=== PATIENT | male | born 1980 | race Two or more races ===

== ENCOUNTER 2025-03-07 05:30 | Emergency (ER) | payer SELFPAY ==
[2025-03-07 05:35] VITALS: BMI 22.4
[2025-03-07 05:42] VITALS: BP 148/96; PULSE 91; RESP 18; TEMP 36.8; O2SAT 98
--- NOTE | 2025-03-07 05:54 | PC.NURSE ---
SPOKE TO FROM POISON CONTROL AND INFORMED HER OF PT TAKING 15-DIAZEPAM 10MG PILLS, 15-SOMA 350MG PILLS, AND 10-NORCO 10/325 PILLS. POISON CONTROL RECOMMENDATIONS ARE SUPPORTIVE CARE, WATCH FOR RESPIRATORY DEPRESSION, CHECK TYLENOL LEVELS AND CALL BACK IF >150. CHECK LFTS, AVOID USING FLUMAZENIL AND IF NARCAN IS USED, OBS FOR 5-6 HRS AFTER USING.
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
[2025-03-07 06:48] LABS: Basophils % (Auto) 0 % (0-2.5); Eosinophils # (Auto) 0.2 Thou/mm3 (0.0-0.5); Eosinophils % (Auto) 2 % (0-10); Hematocrit 37.1 % (41.0-53.0); Hemoglobin 12.5 g/dL (13.5-16.0); Immature Granulocytes % (Auto) 1 % (0-0); Immature Granulocytes Auto 0.05 Thou/mm3 (0.00-0.00); Lymphocytes # (Auto) 1.4 Thou/mm3 (1.0-4.8); Lymphocytes % (Auto) 16 % (10-50); Mean Corpuscular HGB Conc 33.7 g/dl (31.0-37.0); Mean Corpuscular Hemoglobin 30.9 pg (25.0-35.0); Mean Corpuscular Volume 92 fL (80-100); Monocytes # (Auto) 0.5 Thou/mm3 (0.0-0.8); Monocytes % (Auto) 5 % (0-12); Neutrophils # (Auto) 6.5 Thou/mm3 (1.8-7.7); Neutrophils % (Auto) 75 % (37-80); Nucleated Red Blood Cell % 0 /100 WBC (0); Platelet Count 230 Thou/mm3 (140-440); RDW Standard Deviation 46.7 fL (35.1-43.9); Red Blood Count 4.05 Miln/mm3 (4.50-5.90); White Blood Count 8.7 Thou/mm3 (3.8-10.6)
[2025-03-07] MEDS: SODIUM CHLORIDE 0.9% 1000 ML 1,000 ML 999 ML IV (06:53)
[2025-03-07 07:00] VITALS: PULSE 66
[2025-03-07 07:11] LABS: Acetaminophen 11.9 mcg/mL (10.0-20.0); Alanine Aminotransferase 16 U/L (10-49); Albumin, Serum 4.3 gm/dL (3.5-5.0); Albumin/Globulin Ratio 2.2 (1.2-2.2); Alkaline Phosphatase 85 U/L (46-116); Anion Gap 8 (7-16); Aspartate Amino Transferase 16 U/L (0-34); BUN/Creatinine Ratio 9 Ratio (12-20); Bilirubin,Total 0.4 mg/dL (0.3-1.2); Blood Urea Nitrogen 7 mg/dL (9-23); Carbon Dioxide 27.9 mMol/L (20.0-31.0); Chloride 107 mMol/L (98-107); Creatinine (Component) 0.8 mg/dL (0.6-1.3); Estimated Creatinine Clearance 129.9 mL/min (>60); Glucose 132 mg/dL (74-106); Osmolality,Calculated 284 (275-295); Potassium 4.3 mMol/L (3.4-5.1); Sodium 143 mMol/L (136-145); Total Protein 6.3 gm/dL (5.7-8.2); eGFR > 60 See Note
[2025-03-07 07:12] LABS: Alcohol, Blood Medical < 3.0 mg/dL (0-10.0); Salicylate < 3.0 mg/dL
[2025-03-07 07:30] VITALS: BP 126/93; PULSE 67; RESP 16; TEMP 36.6; O2SAT 99
[2025-03-07 07:49] LABS: Collection Type, Urine Clean Catch; Squamous Epithelial Cell,Urine 0 /hpf (0-5)
[2025-03-07 08:05] LABS: Amphetamine/Methamp Scrn,U Negative (Negative); Barbiturate Screen,Urine Negative (Negative); Benzodiazepines Screen,Urine Positive (Negative); Benzoylecgonine Screen, Ur Negative (Negative); Bilirubin,Urine Negative (Negative); Blood,Urine Negative (Negative); Clarity,Urine Clear (Clear/Hazy); Color,Urine Lt-Yellow (Lt Yel-Yel); Fentanyl Screen,Urine Negative (Negative); Glucose, Urine Negative (Negative); Ketones,Urine Negative (Negative); Leukocyte Esterase,Urine Negative (Negative); Nitrite,Urine Negative (Negative); Opiate Screen,Urine Negative (Negative); PH,Urine 6.5 (5.0-7.0); Protein,Urine Negative (Neg - Trace); RBC,Urine 1 /hpf (0-3); Specific Gravity,Urine 1.031 (1.001-1.035); THC Screen,Urine Negative (Negative); Urobilinogen,Urine Negative mg/dL (0.0-1.0); WBC,Urine < 1 /hpf (0-5)
--- NOTE | 2025-03-07 08:16 | PC.NURSE ---
Patient requesting to sign out AMA, Dr. Jalloh made aware and went to bedside and is speaking with patient.
--- NOTE | 2025-03-07 08:19 | PC.NURSE ---
Patient asking to leave AMA. Patient wanted to have his phone and was not able to. Patient denies suicidal ideation. 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 Dr. Jalloh in to evaluate patient. Per patient denies suicidal ideation so patient will just have to be here the required amount of time recommended by Poison control and patient will be able to go home. Patient in agreement with plan. Vitals are stable. Per Dr. Jalloh patient okay to have phone. Patient given breakfast try.
--- NOTE | 2025-03-07 08:33 | PC.NURSE ---
1:1 SITTER STILL AT BEDSIDE.
--- NOTE | 2025-03-07 08:51 | PC.NURSE ---
Per Dr. Jalloh okay to discharge patient. Per he made a contract with patient so he is okay for discharge and knows to return to ED if needed.
[2025-03-07 08:54] VITALS: BP 143/94; PULSE 87; RESP 17; TEMP 36.5; O2SAT 99
== END 2025-03-07 09:01 | disposition home or self-care (01) ==
PROVIDERS: Emergency Provider Family Medicine
DX: T42.4X2A Poisoning by benzodiazepines, intentional self-harm, initial encounter (principal); F32.A Depression, unspecified; R45.851 Suicidal ideations; F13.10 Sedative, hypnotic or anxiolytic abuse, uncomplicated
CPT/HCPCS: 36415; 80053; 80307; 80320; 80329; 81001; 85025; 93005; 96127; 96360; 99284; J7030; G0480

== ENCOUNTER 2025-03-20 15:27 | Emergency (ER) | payer SELFPAY ==
[2025-03-20 15:27] VITALS: BMI 24.4
--- NOTE | 2025-03-20 15:32 | PC.NURSE ---
AFTER CHECKING IN PT ASKED HOW LONG IS THE WAIT? WHEN INFORMED THAT STAFF WILL GET HIM BACK TO SEE A PROVIDER SOON POSSIBLE, PT ASKED WILL IT BE MORE THAN AN HOUR? WHEN INFORMED AGAIN THAT HE WILL BE SEEN SOON POSSIBLE, PT TOOK ARM BAND OFF AND SAID HE WAS GOING SOMEWHERE ELSE. UNABLE TO FIND [facility] PAPERWORK AND HAD PT SIGN AMA FORM INSTEAD.
== END 2025-03-20 15:32 | disposition left against medical advice (07) ==
PROVIDERS: Emergency Provider Family Medicine
DX: Z53.21 Procedure and treatment not carried out due to patient leaving prior to being seen by health care provider (principal)

== ENCOUNTER 2025-07-13 16:12 | Inpatient (IN) | payer MEDICAID, SELFPAY ==
[2025-07-13] VITALS (35 sets, daily range): BP systolic 119–155; BP diastolic 99–113; PULSE 86–125; RESP 18–24; TEMP 36.1–37.1; O2SAT 91–99; BMI 29.4
[2025-07-13] MEDS: FLUMAZENIL INJ 0.1 MG/ML VIAL 10 ML 0.2 MG IVP (16:19)
[2025-07-13] MEDS: SUCCINYLCHOLINE INJ 20 MG/ML VIAL 10 ML 100 MG IV (16:21)
--- NOTE | 2025-07-13 16:22 | XR_ITS ---
EXAMINATION: AP chest single view TECHNIQUE: AP portable supine chest single view Date and time: July 13, 2025, 1634 hours INDICATIONS: Hypoxic respiratory failure, post intubation FINDINGS: Endotracheal tube tip 3.2 cm above arleen No significant cardiac enlargement No aspiration pneumonia Orogastric tube in the stomach, the tip is below the level of the film Old right seventh rib fracture IMPRESSION: Negative for aspiration pneumonia Endotracheal tube tip 3.2 cm above arleen
[2025-07-13] MEDS: ETOMIDATE INJ 2 MG/ML VIAL 10 ML 20 MG IVP (16:29)
--- NOTE | 2025-07-13 16:32 | PD.EDAMS ---
Altered Mental Status RME/HPI General Chief Complaint: Overdose Stated Complaint: OD Time Seen by Provider: 07/13/25 16:19 Arrival date/time: 07/13/25 16:12 RME / HPI RME / HPI narrative: See [facility] for Dr. Hairston's HPI documentation. Related Data Home Medications ?Medication ?Instructions ?Recorded ?Confirmed alprazolam 1 mg tablet 1 mg PO TID 01/30/20 01/30/20 cyclobenzaprine 10 mg tablet 10 mg PO QDAY PRN Muscle Spasm 01/30/20 01/30/20 frovatriptan 2.5 mg tablet 2.5 mg PO Q2H PRN Migraine Headache 01/30/20 01/30/20 gabapentin 300 mg capsule 300 mg PO TID 01/30/20 01/30/20 hydrocodone 10 mg-acetaminophen 1 tab PO Q8H 01/30/20 01/30/20 325 mg tablet ([place]) Previous Rx's ?Medication ?Instructions ?Recorded azithromycin 250 mg tablet See Rx Instructions PO .COMPLEX #6 01/30/20 tabs alprazolam 0.25 mg tablet (Xanax) 0.25 mg PO TID PRN anxiety #14 tabs 11/06/20 azithromycin 250 mg tablet See Rx Instructions PO .COMPLEX #6 11/06/20 (Zithromax Z-Mode) tabs metformin 500 mg tablet,extended 500 mg PO QDAY #10 tabs 11/06/20 release 24 hr promethazine-DM 6.25 mg-15 mg/5 mL 5 ml PO Q6H PRN cough #118 mL 11/06/20 oral syrup Allergies Allergy/AdvReac Type Severity Reaction Status Date / Time Sulfa (Sulfonamide Allergy Severe Rash Verified 03/20/25 15:30 Antibiotics) Review of Systems Review of Systems ROS Unobtainable: unobtainable due to mental status Past Medical History Past Medical History NEUROLOGIC: Positive Head Trauma and Traumatic Brain Injury RESPIRATORY: Positive Bronchitis ENT: Positive Head Trauma PSYCHO/SOCIAL: Positive Depression, Anxiety and Post Traumatic Stress Disorder OTHER HISTORY: Positive Hospitalization, Autism and Falls Social History SMOKING STATUS: Never smoker ED Exam Narrative Physical exam: See [facility] for Dr. Hairston's physical exam documentation. Course Quality Measures none Orders Category Date Time Status 24 HR Medical Restraints Q2HR Care 07/13/25 16:54 Active EKG (ED ONLY) *Do not use* NOW Care 07/13/25 16:22 Completed Emergency Titration Protocol Stat Care 07/13/25 16:46 Ordered Thomas to [place] Routine Care 07/13/25 16:19 Ordered Insert NG / OG tube NOW Care 07/13/25 16:32 Active Intubation NOW Care 07/13/25 16:51 Completed Rigid cervical collar PRN Care 07/13/25 16:34 Active Saline [Insert IV] NOW Care 07/13/25 16:[address] cervical spine wo con Stat Exams 07/13/25 16:[address] chest abdomen pelvis wo Stat Exams 07/13/25 16:[address] head/brain wo con Stat Exams 07/13/25 16:38 Ordered EKG (ED Only) Stat Exams 07/13/25 16:22 Ordered XR chest 1V post procedure Stat Exams 07/13/25 16:22 Completed ABG [Arterial Blood Gas] Stat Lab 07/13/25 17:14 Completed Acetaminophen Stat Lab 07/13/25 16:40 Received Alcohol, Blood Medical Stat Lab 07/13/25 16:40 Received Ammonia Stat Lab 07/13/25 16:40 Completed BNP [B-Type Natriuretic Peptide] Stat Lab 07/13/25 16:40 Completed Bilirubin,Direct Stat Lab 07/13/25 16:40 Received Blood Culture (Lab) Stat Lab 07/13/25 16:48 Received CBC Stat Lab 07/13/25 16:40 Results CK [Creatine Kinase] Stat Lab 07/13/25 16:40 Received CMP [Comprehensive Metabolic Panel] Stat Lab 07/13/25 16:40 Received CRP [C-Reactive Protein] Stat Lab 07/13/25 16:40 Received Drug Screen,Urine Stat Lab 07/13/25 16:40 Received ESR [Sed Rate (ESR)] Stat Lab 07/13/25 16:40 Results Lactate (Lactic Acid) Stat Lab 07/13/25 16:40 Results Lipase Stat Lab 07/13/25 16:40 Received Magnesium Stat Lab 07/13/25 16:40 Received PT [Prothrombin Time with INR] Stat Lab 07/13/25 16:40 Completed PTT [Partial Thromboplastin Time] Stat Lab 07/13/25 16:40 Completed Procalcitonin Stat Lab 07/13/25 16:40 Received Sputum Culture and Gram Stain Stat Lab 07/13/25 17:14 Received TSH [Thyroid Stimulating Hormone] Stat Lab 07/13/25 16:40 Received Troponin I Stat Lab 07/13/25 16:40 Received UA, C/S IF [Urinalysis, C/S if Indicated] Stat Lab 07/13/25 16:40 Received Etomidate Inj [Amidate Inj] Med 07/13/25 16:25 Discontinued 20 mg .ROUTE .STK-MED ONE Etomidate Inj [Amidate Inj] Med 07/13/25 16:27 Discontinued 20 mg IVP X1 ONE Midazolam/Ns 100 mg Ivpb [Versed Pf Inj in Ns Premix] Med 07/13/25 17:17 Active 100 mg in 100 ml IV 1 mg/hr NALOXONE INJ (Syringe) [Narcan Inj (Syringe)] Med 07/13/25 16:15 Discontinued 2 mg .ROUTE .STK-MED ONE NALOXONE INJ (Vial) [Narcan Inj (Vial)] Med 07/13/25 16:21 Discontinued 4 mg IV X1 ONE Ondansetron Inj [Zofran Inj] Med 07/13/25 16:21 Discontinued 4 mg IVP X1 ONE Propofol 1,000 mg Ivpb [Diprivan Ivpb] Med 07/13/25 16:39 Discontinued 1,000 mg in 100 ml IV .STK-MED Propofol 1,000 mg Ivpb [Diprivan Ivpb] Med 07/13/25 16:32 Active 1,000 mg in 100 ml IV 5 mcg/kg/min Ringers Lactated 1000 ml [Lactated Ringers] 1,000 ml Med 07/13/25 16:20 Discontinued IV 1,000 mls/hr Ringers Lactated 1000 ml [Lactated Ringers] 1,000 ml Med 07/13/25 16:21 Discontinued IV 1,000 mls/hr Succinylcholine Inj [Anectine Inj] Med 07/13/25 16:27 Discontinued 100 mg IV X1 ONE Succinylcholine Inj [Anectine Inj] Med 07/13/25 16:25 Discontinued 200 mg .ROUTE .STK-MED ONE flumazeniL [Romazicon Inj] Med 07/13/25 16:21 Discontinued 0.2 mg IVP X1 ONE flumazeniL [Romazicon Inj] Med 07/13/25 16:14 Discontinued 1 mg .ROUTE .STK-MED ONE Volume Ventilator Routine RT 07/13/25 16:51 Active Vital Signs Vital signs: Vital Signs Pulse Rate 112 H 07/13/25 16:21 Respiratory Rate 19 07/13/25 16:21 Blood Pressure 119/101 H 07/13/25 16:21 Pulse Oximetry (%) 98 07/13/25 16:21 Oxygen Delivery Method Room Air 07/13/25 16:21 Pulse ox is 98% on room air which is adequate. PROCEDURES: Intubation sedative: Etomidate Mg Given: 20 paralytic: Succinylcholine Mg Given: 100 Laryngoscope: Speedy ET Tube Size: 7.5 ET Tube Uncuffed: No Tube Secured Depth (cm): 23 Tube Secured Location: lips Tube Placement Confirmation: visualized tube passing through cords, equal breath sounds bilaterally, no breath sounds over epigastrium and confirmation by capnometry Patient Tolerated Procedure: well and no complications Intubation Complications: none Altered Mental Status MDM Narrative MDM Narrative:: This section includes all my notes and documentations, including HPI, PE, and ED course. Omar Hairston MD HPI: 45 year old male here brought in by ambulance from home with altered mental status. Per medics report, mother on scene reported finding the patient altered today and last known well unknown. On scene patient was a GCS of 7 and found lying in bed, with urine incontinence. Bilateral pupils were dilated and no Narcan given on scene. En route to ED patient was given Narcan 2 mg IV with no change. I spoke with patient's mother Junie over the phone. She reports the patient was at his usual state of health yesterday. She heard a thud come from patient's bedroom but did not check on him. Patient was scheduled to get on a train to visit his girlfriend in [place] this morning. However, mom couldn't waking up this morning. And in the afternoon just [employer]ANNEL [employer]NAGER, she called 911. ROS: Can't obtain from the patient due to current clinical condition. Physical Exam: General:? GCS 8 (opens eyes to pain, groans, withdraws from pain). Eyes:? Conjunctivae and lids clear.? EOMI.? PERRL. ENT:? No signs of head trauma. Neck:? Supple.? No tenderness. Heart:? RRR. Lungs:? No respiratory distress.? Good air movement.? No rhonchi, wheezing, rales.? Chest:? No tenderness. Abdomen:? Soft and nontender.? Normal bowel sounds.? No distension.? No rebound or guarding.? Back:? No tenderness.? Skin:? Warm and dry.? Neuro:? Cranial Nerves II-XII grossly intact.? No peripheral motor deficits. Musculoskeletal:? All major joints and bones are not tender with no limited ROM. I reviewed EMS notes. Flumazenil 0.2 mg IV given, no improvement noted. Patient successfully intubated, see procedure note, used etomidate 20 mg IV and succinylcholine 100 mg IV. My interpretation of the EKG is: Sinus tachycardia (112 bpm) with nonspecific ST-T changes. Omar Hairston MD I ordered IVF, Zofran 4 mg IV, Propofol drip, Versed drip, and diagnostic tests. At 6 PM on 07/13/2025, the care of the patient was transferred to Dr. Lainez. Omar Hairston MD Patient data External records reviewed:: [facility] previous records and EMS form Clinical information provided by:: EMS Social determinants that could affect healthcare access:: mental health Patient has the following chronic illnesses:: Depression, anxiety, PTSD How is presenting disease/condition affected by chronic disease/condition?: uneffected by Evaluation data The following diagnostics were reviewed and interpreted by me:: EKG tracing(s) (My interpretation of the EKG is: Sinus tachycardia (112 bpm) with nonspecific ST-T changes. Omar Hairston MD) Lab and/or radiology exams considered but not ordered:: None Interpretation Summary: Complete diagnostic tests are pending. Medications / Prescriptions Medications or Prescriptions considered but not ordered:: None Medication administrations:: Medication Administration History Propofol (Diprivan Ivpb) 1,000 mg in 100 mls @ 2.634 mls/hr IV .Q24H PRN; Protocol PRN Reason: Per Protocol Stop: 08/12/25 16:31 Last Titration: 07/13/25 17:19 Dose: 50 mcg/kg/min, 26.34 mls/hr Documented By: Titration: 07/13/25 17:12 Dose: 45 mcg/kg/min, 23.706 mls/hr Documented By: Titration: 07/13/25 17:05 Dose: 40 mcg/kg/min, 21.072 mls/hr Documented By: Titration: 07/13/25 17:00 Dose: 35 mcg/kg/min, 18.438 mls/hr Documented By: Titration: 07/13/25 16:53 Dose: 30 mcg/kg/min, 15.804 mls/hr Documented By: Admin: 07/13/25 16:46 Dose: 25 mcg/kg/min, 13.17 mls/hr Documented By: VL Co-signed By: JAGDEEP Midazolam HCl (Versed Pf Inj In Ns Premix) 100 mg in 100 mls @ 1 mls/hr IV .Q24H PRN; Protocol PRN Reason: Per Protocol Stop: 07/18/25 17:16 Discontinued Medications Etomidate (Etomidate Inj 2 Mg/Ml Vial 10 Ml) Confirm Administered Dose 20 mg .ROUTE .STK-MED ONE Stop: 07/13/25 16:26 Last Admin: 07/13/25 16:32 Dose: Not Given Documented By: VL Non-Admin Reason: Duplicate Medication on eMAR Etomidate (Etomidate Inj 2 Mg/Ml Vial 10 Ml) 20 mg IVP X1 ONE Stop: 07/13/25 16:28 Last Admin: 07/13/25 16:29 Dose: 20 mg Documented By: VL Flumazenil (Flumazenil Inj 0.1 Mg/Ml Vial 10 Ml) Confirm Administered Dose 1 mg .ROUTE .STK-MED ONE Stop: 07/13/25 16:15 Last Admin: 07/13/25 16:32 Dose: Not Given Documented By: VL Non-Admin Reason: Duplicate Medication on eMAR Flumazenil (Flumazenil Inj 0.1 Mg/Ml Vial 10 Ml) 0.2 mg IVP X1 ONE Stop: 07/13/25 16:22 Last Admin: 07/13/25 16:19 Dose: 0.2 mg Documented By: VL Lactated Ringer's (Lactated Ringers) 1,000 mls @ 1,000 mls/hr IV .Q1H ONE Stop: 07/13/25 17:19 Last Admin: 07/13/25 17:21 Dose: 1,000 mls/hr Documented By: VL Lactated Ringer's (Lactated Ringers) 1,000 mls @ 1,000 mls/hr IV .Q1H ONE Stop: 07/13/25 17:20 Propofol (Diprivan Ivpb) Confirm Administered Dose 1,000 mg in 100 mls @ ud IV .STK-MED ONE Stop: 07/13/25 16:40 Last Admin: 07/13/25 16:46 Dose: Not Given Documented By: VL Non-Admin Reason: Duplicate Medication on eMAR Naloxone HCl (Naloxone Inj 1 Mg/Ml Syringe 2 Ml) Confirm Administered Dose 2 mg .ROUTE .STK-MED ONE Stop: 07/13/25 16:16 Last Admin: 07/13/25 16:32 Dose: Not Given Documented By: AMY Non-Admin Reason: Duplicate Medication on eMAR Naloxone HCl (Naloxone Inj 0.4 Mg/Ml Vial) 4 mg IV X1 ONE Stop: 07/13/25 16:22 Last Admin: 07/13/25 16:38 Dose: Not Given Documented By: AMY Non-Admin Reason: Cancelled by Provider Ondansetron HCl (Ondansetron Inj 2 Mg/Ml Inj 2 Ml) 4 mg IVP X1 ONE; Protocol Stop: 07/13/25 16:22 Succinylcholine Chloride (Succinylcholine Inj 20 Mg/Ml Vial 10 Ml) Confirm Administered Dose 200 mg .ROUTE .STK-MED ONE Stop: 07/13/25 16:26 Last Admin: 07/13/25 16:32 Dose: Not Given Documented By: AMY Non-Admin Reason: Duplicate Medication on eMAR Succinylcholine Chloride (Succinylcholine Inj 20 Mg/Ml Vial 10 Ml) 100 mg IV X1 ONE Stop: 07/13/25 16:28 Last Admin: 07/13/25 16:21 Dose: 100 mg Documented By: AMY I ordered IVF, Zofran 4 mg IV, Propofol drip, Versed drip, and diagnostic tests. Consultations Consultation(s) initiated? (list below): No Diagnosis Differential diagnosis altered mental status: alcoholic intoxication, altered mental status, delirium, dementia, hypoglycemia, hyponatremia, subarachnoid hemorrhage and sepsis Most likely diagnosis given after review of the tests above:: Complete diagnostic tests are pending. Admission Indicated Admission indicated?: not indicated Explain why admission is indicated or not indicated:: Complete diagnostic tests are pending. Admission Request Was there a request for admission?: No Disposition Plan Disposition Plan: other (specify) (At 6 PM on 07/13/2025, the care of the patient was transferred to Dr. Lainez.) Critical Care Time Critical Care Time Critical Care Time: Yes Total Critical Care Time (min.): 42 Attestation: Due to a high probability of clinically significant, life threatening deterioration, the patient required my highest level of preparedness to intervene emergently and I personally spent this critical care time directly and personally managing the patient. This critical care time included obtaining a history; examining the patient; ordering and review of studies; arranging urgent treatment with development of a management plan; evaluation of patient's response to treatment; frequent reassessment; and discussions with family and other providers. It was exclusive of separately billable procedures and treating other patients and teaching time. Omar Hairston MD Discharge Plan Prescriptions/Referrals Prescriptions/Med Rec: No Action cyclobenzaprine 10 mg Tablet 10 mg PO QDAY PRN (Reason: Muscle Spasm) alprazolam 1 mg Tablet 1 mg PO TID hydrocodone-acetaminophen [[place]] 10-325 mg Tablet 1 tab PO Q8H frovatriptan 2.5 mg Tablet 2.5 mg PO Q2H PRN (Reason: Migraine Headache) gabapentin 300 mg Capsule 300 mg PO TID azithromycin 250 mg tablet See Rx Instructions .ROUTE .COMPLEX Qty: 6 0RF Rx Instructions: take 500 mg today (day 1), then 250 mg for 4 days (days 2-5) alprazolam [Xanax] 0.25 mg tablet 0.25 mg PO TID PRN (Reason: anxiety) Qty: 14 0RF promethazine-DM 6.25-15 mg/5 mL syrup 5 ml PO Q6H PRN (Reason: cough) Qty: 118 0RF azithromycin [Zithromax Z-Mode] 250 mg tablet See Rx Instructions .ROUTE .COMPLEX Qty: 6 0RF Rx Instructions: take 500 mg today (day 1), then 250 mg for 4 days (days 2-5) metformin 500 mg tablet extended release 24 hr 500 mg PO QDAY Qty: 10 0RF Referrals: No Primary/Family,Physician [Primary Care Provider] - In 1 week Problem List Clinical Impression: AMS (altered mental status) Patient/Caregiver Discharge Instructions Print Language: Bhutanese
--- NOTE | 2025-07-13 16:38 | XR_ITS ---
Examination: CT cervical spine without contrast 2-D sagittal reconstructions 2-D coronal reconstructions 3-D reconstructions. Exam date and time: July 13, 2025, 1803 hours INDICATIONS: Patient found down unconscious today with neck pain CTDI:vol (mGy) 17.6 DLP: (mGycm) 431 Technique: Multiple 2 mm axial sections of the cervical spine have been obtained. The coronal and sagittal reconstructions have been obtained. 3-D reconstructions have been obtained. Low dose protocols were performed. One or more of the following dose reduction techniques were used; automated exposure control, adjustment of the mA and/or KV according to patient size, use of iterative reconstruction technique. Findings: Axial sections demonstrate intact base of the skull. C1 exhibit satisfactory relationship to the odontoid. No acute cervical vertebral body fracture seen. Alignment posterior spinous processes satisfactory. Air density in the lower soft tissue of the neck prevertebral at the site of the endotracheal tube and orogastric tube, for instance sagittal image 35 Impression: No acute cervical fracture.
--- NOTE | 2025-07-13 16:38 | XR_ITS ---
Examination: CT chest, without intravenous contrast. CT abdomen, without intravenous contrast. CT pelvis, without intravenous contrast. 2-D sagittal and coronal reconstructions. 3-D reconstructions. Date and time of exam: July 13, 2025, 181 hours INDICATIONS: Patient found down unconscious today, chest abdominal pain neck pain hypoxic respiratory failure post intubation CTDI vol (mgy) 17.3 DLP (MGycm) 1364 Technique: Multiple CT images, 3.0 mm slice thickness, obtained chest, abdomen, pelvis, with the high-resolution 64 slice scanner.. Sagittal and coronal 2-D reconstructions are obtained. 3-D reconstructions Low dose protocols were performed. One or more of the following dose reduction techniques were used; automated exposure control, adjustment of the mA and/or KV according to patient size, use of iterative reconstruction technique. Findings: Tracheal tube tip 2.4 cm above arleen No thoracic aortic aneurysmal dilatation Pulmonary artery segments are not enlarged. No paratracheal tracheobronchial or bronchopulmonary adenopathy. Basilar lung opacity, consider aspiration pneumonia Moderate vascular congestion Manubrium and body of the sternum intact Prominent osteopenia Chronic osteoporotic compressions T9, T8, T7, T6, T5 Ribs appear intact Orogastric tube in the stomach No focal liver or splenic lesion No gallstones No pancreatic or adrenal mass No renal or ureteral calculi, no hydronephrosis Aorta normal size Normal appendix No free blood in the abdomen or pelvis Negative for pneumoperitoneum Urinary bladder contracted around a Thomas catheter, no significant prostatomegaly Moderate disc narrowing L5-S1 Bones of the pelvis and hips intact IMPRESSION: Bibasilar lung opacity consider aspiration pneumonia Tracheal tube tip 2.4 cm above arleen Moderate vascular congestion Chronic osteoporotic compressions T9, T8, T7, T6, T5 Orogastric tube in the stomach No abdominal parenchymal laceration, no free blood in the abdomen or pelvis Moderate disc narrowing L5-S1
--- NOTE | 2025-07-13 16:38 | XR_ITS ---
Examination: CT brain head without contrast. 2-D sagittal coronal reconstructions Date and time of exam: July 13, 2025, 1803 hours, comparison February 23, 2023 INDICATIONS: Patient found down unconscious today altered mental status CTDI: vol (mGy): 53.1 DLP: (mGycm): 1120 Technique: Multiple CT axial sections of the brain have been obtained, 5 mm slice thickness. Contrast has not been administered. 2-D sagittal, coronal reconstructions have been obtained Low dose protocols were performed. One or more of the following dose reduction techniques were used; automated exposure control, adjustment of the mA and/or KV according to patient size, use of iterative reconstruction technique. Findings: No significant ventricular enlargement. Intra-axial or extra-axial hemorrhage density is not seen. No mass effect or midline shift Basal cisterns are not remarkable. Fourth ventricle is midline. Cranial vault intact. Impression: Negative for acute hemorrhage, mass effect or midline shift
[2025-07-13] MEDS: PROPOFOL 1,000 MG IVPB 1,000 MG/100 ML VIAL 13.17 MG IV (16:46)
[2025-07-13 17:00] LABS: Lactate (Lactic Acid) 2.8 mMol/L (0.4-2.0)
[2025-07-13 17:04] LABS: Basophils # (Auto) 0.0 Thou/mm3 (0.0-0.2); Basophils % (Auto) 0 % (0-2.5); Eosinophils # (Auto) 0.2 Thou/mm3 (0.0-0.5); Eosinophils % (Auto) 1 % (0-10); Hematocrit 47.8 % (41.0-53.0); Hemoglobin 16.3 g/dL (13.5-16.0); Immature Granulocytes Auto 0.05 Thou/mm3 (0.00-0.00); Lymphocytes # (Auto) 1.6 Thou/mm3 (1.0-4.8); Lymphocytes % (Auto) 13 % (10-50); Mean Corpuscular HGB Conc 34.1 g/dl (31.0-37.0); Mean Corpuscular Hemoglobin 30.6 pg (25.0-35.0); Mean Corpuscular Volume 90 fL (80-100); Monocytes # (Auto) 0.5 Thou/mm3 (0.0-0.8); Monocytes % (Auto) 4 % (0-12); Neutrophils # (Auto) 10.1 Thou/mm3 (1.8-7.7); Neutrophils % (Auto) 81 % (37-80); Nucleated Red Blood Cell # 0.00 Thou/mm3 (0.00-0.00); Nucleated Red Blood Cell % 0 /100 WBC (0); Platelet Count 227 Thou/mm3 (140-440); RDW Standard Deviation 43.0 fL (35.1-43.9); Red Blood Count 5.32 Miln/mm3 (4.50-5.90); White Blood Count 12.4 Thou/mm3 (3.8-10.6)
[2025-07-13 17:13] LABS: Collection Type, Urine Clean Catch
[2025-07-13 17:18] LABS: INR 1.0 (0.9-1.3); Partial Thromboplastin Time 27.2 Seconds (22.0-36.0); Prothrombin Time 10.5 Seconds (9.0-12.2)
[2025-07-13 17:20] LABS: Base Excess -6 (-3-3); HCO3 20 mEq/L (20-26); Inspired Oxygen, FIO2 100 %; O2 Saturation 99 % (91-98); PCO2 38 mmHg (32.0-48.0); PO2 534 mmHg (83-108); pH, Arterial 7.33 (7.35-7.45)
[2025-07-13] MEDS: RINGERS LACTATED 1000 ML 1,000 ML IV ×2 (17:21→18:27)
[2025-07-13 17:22] LABS: B-Type Natriuretic Peptide < 20 pg/mL (0-100)
[2025-07-13 17:22] LABS: Puncture Site Right Radial
[2025-07-13 17:23] LABS: Allen Test Performed/OK
[2025-07-13 17:24] LABS: Ammonia < 10 uMol/L (11-32)
[2025-07-13 17:29] LABS: Sed Rate (ESR) 17 mm/hr (0-15)
[2025-07-13 17:34] LABS: Acetaminophen < 2.0 mcg/mL (10.0-20.0); Alanine Aminotransferase 78 U/L (10-49); Albumin, Serum 5.0 gm/dL (3.5-5.0); Albumin/Globulin Ratio 2.1 (1.2-2.2); Alcohol, Blood Medical < 10.0 mg/dL (0-10.0); Alkaline Phosphatase 107 U/L (46-116); Amphetamine/Methamp Scrn,U Negative (Negative); Anion Gap 14 (7-16); Aspartate Amino Transferase 42 U/L (0-34); BUN/Creatinine Ratio 11 Ratio (12-20); Barbiturate Screen,Urine Negative (Negative); Benzodiazepines Screen,Urine Negative (Negative); Benzoylecgonine Screen, Ur Negative (Negative); Bilirubin,Direct 0.4 mg/dL (0.0-0.3); Bilirubin,Total 1.0 mg/dL (0.3-1.2); Blood Urea Nitrogen 11 mg/dL (9-23); C-Reactive Protein < 0.5 mg/dL (0.0-0.9); Calcium 9.9 mg/dL (8.3-10.6); Calcium (Corrected) 9.9 mg/dL (8.5-10.1); Carbon Dioxide 22.9 mMol/L (20.0-31.0); Chloride 103 mMol/L (98-107); Creatine Kinase 60 U/L (34-171); Creatinine (Component) 1.0 mg/dL (0.6-1.3); Estimated Creatinine Clearance 102.6 mL/min (>60); Fentanyl Screen,Urine Negative (Negative); Globulin 2.4 gm/dL (2.3-3.5); Glucose 297 mg/dL (74-106); Lipase 28 U/L (12-53); Magnesium 2.0 mg/dL (1.6-2.6); Opiate Screen,Urine Negative (Negative); Osmolality,Calculated 289 (275-295); Potassium 4.2 mMol/L (3.4-5.1); Procalcitonin 0.19 ng/ml (0.0-0.49); Sodium 140 mMol/L (136-145); THC Screen,Urine Positive (Negative); Thyroid Stimulating Hormone 0.40 uIU/mL (0.55-4.78); Total Protein 7.4 gm/dL (5.7-8.2); Troponin I < 0.002 ng/mL (0.0-0.045); eGFR > 60 See Note
[2025-07-13] MEDS: MIDAZOLAM/NS 100 MG IVPB 100 MG/100 ML BAG IV (17:35)
[2025-07-13 17:57] LABS: Bilirubin,Urine Negative (Negative); Blood,Urine Trace (Negative); Clarity,Urine Clear (Clear/Hazy); Color,Urine Lt-Yellow (Lt Yel-Yel); Culture Indicated,Urine Not Indicated; Glucose, Urine 4+ (Negative); Ketones,Urine Trace (Negative); Leukocyte Esterase,Urine Negative (Negative); Nitrite,Urine Negative (Negative); PH,Urine 5.5 (5.0-7.0); Protein,Urine Negative (Neg - Trace); RBC,Urine 4 /hpf (0-3); Specific Gravity,Urine 1.014 (1.001-1.035); Squamous Epithelial Cell,Urine < 1 /hpf (0-5); Urobilinogen,Urine Negative mg/dL (0.0-1.0); WBC,Urine 3 /hpf (0-5)
--- NOTE | 2025-07-13 18:09 | PD.EDADDENDU ---
Emergency Room Addendum <Neetu Harvey - Last Filed: 07/13/25 19:07> Addendum Narrative: 1800: Care assumed from Dr. Hairston, the previous shift emergency physician. Past medical, surgical, social and family history reviewed. Vitals and home medications reviewed. Results and treatment plan discussed. I will assume the care of the patient at this time and will follow the patient. Please refer to the emergency department record for history and examination from initial visit. RADIOLOGY RESULTS: [place] [facility] Report Signed Patient: ALBERTO DOMINGUEZ [facility]. Record#: [id number] Birthdate: 1980 Age/Sex: 45 / M Location: [facility] [place] Attending Dr: Ordering Physician: Omar Hairston MD Date of Service: 07/13/25 Procedure(s): CT head/brain wo con Accession Number(s): [id number] cc: Omar Hairston MD; Jorgito Beavers MD; NO PRIMARY/FAMILY,PHYSICIAN~ Examination: CT brain head without contrast. 2-D sagittal coronal reconstructions Date and time of exam: July 13, 2025, 1803 hours, comparison February 23, 2023 INDICATIONS: Patient found down unconscious today altered mental status CTDI: vol (mGy): 53.1 DLP: (mGycm): 1120 Technique: Multiple CT axial sections of the brain have been obtained, 5 mm slice thickness. Contrast has not been administered. 2-D sagittal, coronal reconstructions have been obtained Low dose protocols were performed. One or more of the following dose reduction techniques were used; automated exposure control, adjustment of the mA and/or KV according to patient size, use of iterative reconstruction technique. Findings: No significant ventricular enlargement. Intra-axial or extra-axial hemorrhage density is not seen. No mass effect or midline shift Basal cisterns are not remarkable. Fourth ventricle is midline. Cranial vault intact. Impression: Negative for acute hemorrhage, mass effect or midline shift Dictated By: Jorgito Beavers MD Signed By: <Electronically signed by Jorgito Beavers MD in OV> 07/13/25 1856 [place] [facility] Report Signed Patient: ALBERTO DOMINGUEZ [facility]. Record#: [id number] Birthdate: 1980 Age/Sex: 45 / M Location: [facility] Attending Dr: Ordering Physician: Omar Hairston MD Date of Service: 07/13/25 Procedure(s): CT cervical spine wo con Accession Number(s): [id number] cc: Omar Hairston MD; Jorgito Beavers MD; NO PRIMARY/FAMILY,PHYSICIAN~ Examination: CT cervical spine without contrast 2-D sagittal reconstructions 2-D coronal reconstructions 3-D reconstructions. Exam date and time: July 13, 2025, 1803 hours INDICATIONS: Patient found down unconscious today with neck pain CTDI:vol (mGy) 17.6 DLP: (mGycm) 431 Technique: Multiple 2 mm axial sections of the cervical spine have been obtained. The coronal and sagittal reconstructions have been obtained. 3-D reconstructions have been obtained. Low dose protocols were performed. One or more of the following dose reduction techniques were used; automated exposure control, adjustment of the mA and/or KV according to patient size, use of iterative reconstruction technique. Findings: Axial sections demonstrate intact base of the skull. C1 exhibit satisfactory relationship to the odontoid. No acute cervical vertebral body fracture seen. Alignment posterior spinous processes satisfactory. Air density in the lower soft tissue of the neck prevertebral at the site of the endotracheal tube and orogastric tube, for instance sagittal image 35 Impression: No acute cervical fracture. Dictated By: Jorgito Beavers MD Signed By: <Electronically signed by Jorgito Beavers MD in OV> 07/13/25 1855 [place] [facility] Report Signed Patient: ALBERTO DOMINGUEZ [facility]. Record#: [id number] Birthdate: 1980 Age/Sex: 45 / M Location: [facility] Attending Dr: Ordering Physician: Omar Hairston MD Date of Service: 07/13/25 Procedure(s): CT chest abdomen pelvis wo Accession Number(s): [id number] cc: Omar Hairston MD; Jorgito Beavers MD; NO PRIMARY/FAMILY,PHYSICIAN~ Examination: CT chest, without intravenous contrast. CT abdomen, without intravenous contrast. CT pelvis, without intravenous contrast. 2-D sagittal and coronal reconstructions. 3-D reconstructions. Date and time of exam: July 13, 2025, 181 hours INDICATIONS: Patient found down unconscious today, chest abdominal pain neck pain hypoxic respiratory failure post intubation CTDI vol (mgy) 17.3 DLP (MGycm) 1364 Technique: Multiple CT images, 3.0 mm slice thickness, obtained chest, abdomen, pelvis, with the high-resolution 64 slice scanner.. Sagittal and coronal 2-D reconstructions are obtained. 3-D reconstructions Low dose protocols were performed. One or more of the following dose reduction techniques were used; automated exposure control, adjustment of the mA and/or KV according to patient size, use of iterative reconstruction technique. Findings: Tracheal tube tip 2.4 cm above arleen No thoracic aortic aneurysmal dilatation Pulmonary artery segments are not enlarged. No paratracheal tracheobronchial or bronchopulmonary adenopathy. Basilar lung opacity, consider aspiration pneumonia Moderate vascular congestion Manubrium and body of the sternum intact Prominent osteopenia Chronic osteoporotic compressions T9, T8, T7, T6, T5 Ribs appear intact Orogastric tube in the stomach No focal liver or splenic lesion No gallstones No pancreatic or adrenal mass No renal or ureteral calculi, no hydronephrosis Aorta normal size Normal appendix No free blood in the abdomen or pelvis Negative for pneumoperitoneum Urinary bladder contracted around a Thomas catheter, no significant prostatomegaly Moderate disc narrowing L5-S1 Bones of the pelvis and hips intact IMPRESSION: Bibasilar lung opacity consider aspiration pneumonia Tracheal tube tip 2.4 cm above arleen Moderate vascular congestion Chronic osteoporotic compressions T9, T8, T7, T6, T5 Orogastric tube in the stomach No abdominal parenchymal laceration, no free blood in the abdomen or pelvis Moderate disc narrowing L5-S1 Dictated By: Jorgito Beavers MD Signed By: <Electronically signed by Jorgito Beavers MD in OV> 07/13/25 190 <Ken Lainez, DO - Last Filed: 07/13/25 19:39> Addendum Narrative: 1800: Care assumed from Dr. Hairston, the previous shift emergency physician. Past medical, surgical, social and family history reviewed. Vitals and home medications reviewed. Results and treatment plan discussed. I will assume the care of the patient at this time and will follow the patient. Please refer to the emergency department record for history and examination from initial visit. RADIOLOGY RESULTS: [place] [facility] Report Signed Patient: ALBERTO DOMINGUEZ [facility]. Record#: [id number] Birthdate: 1980 Age/Sex: 45 / M Location: [facility] [place] Attending Dr: Ordering Physician: Omar Hairston MD Date of Service: 07/13/25 Procedure(s): CT head/brain wo con Accession Number(s): [id number] cc: Omar Hairston MD; Jorgito Beavers MD; NO PRIMARY/FAMILY,PHYSICIAN~ Examination: CT brain head without contrast. 2-D sagittal coronal reconstructions Date and time of exam: July 13, 2025, 1803 hours, comparison February 23, 2023 INDICATIONS: Patient found down unconscious today altered mental status CTDI: vol (mGy): 53.1 DLP: (mGycm): 1120 Technique: Multiple CT axial sections of the brain have been obtained, 5 mm slice thickness. Contrast has not been administered. 2-D sagittal, coronal reconstructions have been obtained Low dose protocols were performed. One or more of the following dose reduction techniques were used; automated exposure control, adjustment of the mA and/or KV according to patient size, use of iterative reconstruction technique. Findings: No significant ventricular enlargement. Intra-axial or extra-axial hemorrhage density is not seen. No mass effect or midline shift Basal cisterns are not remarkable. Fourth ventricle is midline. Cranial vault intact. Impression: Negative for acute hemorrhage, mass effect or midline shift Dictated By: Jorgito Beavers MD Signed By: <Electronically signed by Jorgito Beavers MD in OV> 07/13/25 1856 [place] [facility] Report Signed Patient: ALBERTO DOMINGUEZ [facility]. Record#: [id number] Birthdate: 1980 Age/Sex: 45 / M Location: [facility] Attending Dr: Ordering Physician: Omar Hairston MD Date of Service: 07/13/25 Procedure(s): CT cervical spine wo con Accession Number(s): [id number] cc: Omar Hairston MD; Jorgito Beavers MD; NO PRIMARY/FAMILY,PHYSICIAN~ Examination: CT cervical spine without contrast 2-D sagittal reconstructions 2-D coronal reconstructions 3-D reconstructions. Exam date and time: July 13, 2025, 1803 hours INDICATIONS: Patient found down unconscious today with neck pain CTDI:vol (mGy) 17.6 DLP: (mGycm) 431 Technique: Multiple 2 mm axial sections of the cervical spine have been obtained. The coronal and sagittal reconstructions have been obtained. 3-D reconstructions have been obtained. Low dose protocols were performed. One or more of the following dose reduction techniques were used; automated exposure control, adjustment of the mA and/or KV according to patient size, use of iterative reconstruction technique. Findings: Axial sections demonstrate intact base of the skull. C1 exhibit satisfactory relationship to the odontoid. No acute cervical vertebral body fracture seen. Alignment posterior spinous processes satisfactory. Air density in the lower soft tissue of the neck prevertebral at the site of the endotracheal tube and orogastric tube, for instance sagittal image 35 Impression: No acute cervical fracture. Dictated By: Jorgito Beavers MD Signed By: <Electronically signed by Jorgito Beavers MD in OV> 07/13/25 1855 [place] [facility] Report Signed Patient: ALBERTO DOMINGUEZ [facility]. Record#: [id number] Birthdate: 1980 Age/Sex: 45 / M Location: [facility] Attending Dr: Ordering Physician: Omar Hairston MD Date of Service: 07/13/25 Procedure(s): CT chest abdomen pelvis wo Accession Number(s): [id number] cc: Omar Hairston MD; Jorgito Beavers MD; NO PRIMARY/FAMILY,PHYSICIAN~ Examination: CT chest, without intravenous contrast. CT abdomen, without intravenous contrast. CT pelvis, without intravenous contrast. 2-D sagittal and coronal reconstructions. 3-D reconstructions. Date and time of exam: July 13, 2025, 181 hours INDICATIONS: Patient found down unconscious today, chest abdominal pain neck pain hypoxic respiratory failure post intubation CTDI vol (mgy) 17.3 DLP (MGycm) 1364 Technique: Multiple CT images, 3.0 mm slice thickness, obtained chest, abdomen, pelvis, with the high-resolution 64 slice scanner.. Sagittal and coronal 2-D reconstructions are obtained. 3-D reconstructions Low dose protocols were performed. One or more of the following dose reduction techniques were used; automated exposure control, adjustment of the mA and/or KV according to patient size, use of iterative reconstruction technique. Findings: Tracheal tube tip 2.4 cm above arleen No thoracic aortic aneurysmal dilatation Pulmonary artery segments are not enlarged. No paratracheal tracheobronchial or bronchopulmonary adenopathy. Basilar lung opacity, consider aspiration pneumonia Moderate vascular congestion Manubrium and body of the sternum intact Prominent osteopenia Chronic osteoporotic compressions T9, T8, T7, T6, T5 Ribs appear intact Orogastric tube in the stomach No focal liver or splenic lesion No gallstones No pancreatic or adrenal mass No renal or ureteral calculi, no hydronephrosis Aorta normal size Normal appendix No free blood in the abdomen or pelvis Negative for pneumoperitoneum Urinary bladder contracted around a Thomas catheter, no significant prostatomegaly Moderate disc narrowing L5-S1 Bones of the pelvis and hips intact IMPRESSION: Bibasilar lung opacity consider aspiration pneumonia Tracheal tube tip 2.4 cm above arleen Moderate vascular congestion Chronic osteoporotic compressions T9, T8, T7, T6, T5 Orogastric tube in the stomach No abdominal parenchymal laceration, no free blood in the abdomen or pelvis Moderate disc narrowing L5-S1 Dictated By: Jorgito Beavers MD Signed By: <Electronically signed by Jorgito Beavers MD in OV> 07/13/25 190 Case was signed out to me. Patient was already intubated. Head CT was negative. CT of the chest abdomen and pelvis was unremarkable. Urinary tox screen was positive for marijuana only. Alcohol levels not elevated. Blood work was essentially unremarkable. At this point I am uncertain as the cause for the patient's decrease in mental status. Patient is on the ventilator sedated with Versed and propofol. I will discuss this case with the ICU resident as the patient will require admission to the hospital for further treatment and evaluation for his alteration in mental status.
--- NOTE | 2025-07-13 18:28 | PC.NURSE ---
PATIENT WAS BROUGHT IN TO AMBULANCE FROM HOME FOR ALTERED MENTAL STATUS/POSSIBLE OVERDOSE. PATIENT WAS FOUND BY HIS MOTHER THIS AFTERNOON UNRESPONSIVE/ UNAROUSABLE. WHEN EMS ARRIVED ON SCENE PATIENT WAS GCS 7, ON ARRIVAL TO ED PATIENT WAS GCS OF 3. PATIENT WAS WAKING UP AFTER FLUMAZENIL WAS GIVEN IV PUSH PER ORDER. PATIENT STARTED TO WAKE UP AND FIGHT STAFF TO GET OUT OF BED, PATIENT WAS ALTERED AND NONVERBAL. PATIENT WAS TRYING TO CLIMB OUT OF BED. DR. IVEY SPOKE TO MOM WHO STATED SHE HEARD PATIENT POSSIBLY FALL LAST NIGHT BUT DID NOT CHECK ON HIM LAST NIGHT. DR. IVEY DECIDED TO INTUBATE PATIENT AND PLACE C COLLAR FOR POSSIBLE HEAD/NECK TRAUMA. PATIENT IS NOW ON PROPOFOL DRIP AND VERSED DRIP. MOM AT BEDSIDE. VITAL SIGNS STABLE. PLAN OF CARE ONGOING
--- NOTE | 2025-07-13 18:38 | PC.NURSE ---
NOT ABLE TO PERFORM COLUMBIA SUICIDE SEVERITY SCALE DUE TO INTUBATION/SEDATION.
[2025-07-13 19:58] LABS: Reflex Lactate? Y
[2025-07-13] MEDS: PROPOFOL 1,000 MG IVPB 1,000 MG/100 ML VIAL 26.34 MG IV ×2 (20:01→23:40)
[2025-07-13 20:39] LABS: Lactic Acid, 3 HR 1.9 mMol/L (0.4-2.0)
--- NOTE | 2025-07-13 20:39 | ECHO_ITS ---
Patient Info Name: Ashish Antunez Age: 45 years : 1980 Gender: Male Ht: 173 cm Wt: 88 kg BSA: 2.07 m2 BP: 116 / 83 mmHg HR: 130 bpm Heart Rhythm: Tachycardia Exam Date: 07/14/2025 11:52 AM Admit Date: 07/13/2025 Site: [facility] Room Number: [id number] Patient Status: I Exam Type: CA echo doppler complete Product Applications Scientist: Della Cedillo Ordering Physician: Lazarus Wheat Study Info Indications hx of drug use - Primary Location: [facility] Left Ventricular Outflow Tract Name Value Normal LVOT 2D LVOT Diameter 1.9 cm LVOT Doppler LVOT Peak Velocity 101 cm/s LVOT Mean Gradient 2 mmHg LVOT VTI 17 cm LVOT VTI/AV VTI Ratio 0.8 LVOT Stroke Volume 47 ml Pulmonic Valve Name Value Normal PV Doppler PV Peak Velocity 122 cm/s Mitral Valve Name Value Normal MV Doppler MV Decel [place] 736 cm/s2 MV PHT 21 ms MV Area (PHT) 10.3 cm2 4.0-5.0 MV Diastolic Function MV E Peak Velocity 54 cm/s MV A Peak Velocity 78 cm/s MV E/A 0.7 MV Annular TDI MV Septal e' Velocity 9.1 cm/s MV E/e' (Septal) 6.0 MV Lateral e' Velocity 7.9 cm/s MV E/e' (Lateral) 6.9 MV e' Average 8.54 cm/s MV E/e' (Average) 6.4 Tricuspid Valve Name Value Normal TV Regurgitation Doppler TR Peak Velocity 216 cm/s Estimated PAP/RSVP RA Pressure 10 mmHg <=5 PA Systolic Pressure 29 mmHg <36 RV Systolic Pressure 29 mmHg <36 Aortic Valve Name Value Normal AV 2D/MM AV Cusp Sep (MM) 1.2 cm AV Doppler AV Peak Velocity 117 cm/s AV Mean Gradient 3 mmHg AV VTI 20 cm AV Area (Cont Eq VTI) 2.3 cm2 >=3.0 AV Area (Cont Eq Toño) 2.4 cm2 AV DI (Toño) 0.86 AV Regurgitation 2D LVOT Area 2.8 cm2 Ventricles Name Value Normal LV Dimensions 2D/MM IVS Diastolic Thickness (2D) 0.8 cm 0.6-1.0 LVID Diastole (2D) 4.5 cm 4.2-5.8 LVIW Diastolic Thickness (2D) 1.1 cm 0.6-1.0 LVID Systole (2D) 2.6 cm 2.5-4.0 LVOT Diameter 1.9 cm LV Mass (2D Cubed) 142.89 g 88.00-224.00 LV Mass Index (2D Cubed) 69 g/m2 49-115 Relative Wall Thickness (2D) 0.49 <=0.42 IVS/LVIW Diastolic Thickness (2D) 0.73 0.00-1.50 LV Fractional Shortening/Ejection Fraction 2D/MM LV Fractional Shortening (2D) 42 % 25-43 LV EF (2D Teichholz) 73 % Atria Name Value Normal LA Dimensions LA Volume (4C A-L) 36 ml LA Volume (BP A-L) 35 ml Left Ventricle Left ventricular chamber dimension is normal. Left ventricular systolic function is normal with visually estimated ejection fraction of 65-70%. There is normal geometry noted in the left ventricle. Left ventricular segmental wall motion is normal. There is grade I diastolic dysfunction in the left ventricle. Right Ventricle Right ventricular chamber dimension is normal. Right ventricular systolic function is normal. Left Atrium Left atrial chamber dimension is normal. Right Atrium Right atrial chamber dimension is normal. Aortic Valve The aortic valve is trileaflet. There is no aortic valve sclerosis. There is no aortic valve stenosis with a peak velocity of 117 cm/s, mean gradient of 3 mmHg, and aortic valve area of 2.3 cm2. There is no aortic valve regurgitation. Pulmonic Valve The pulmonic valve is normal. There is no pulmonic valve stenosis. There is no pulmonic regurgitation. Mitral Valve The mitral valve has normal leaflets. There is no mitral valve stenosis. There is trace mitral valve regurgitation. Tricuspid Valve The tricuspid valve leaflets are normal. There is no tricuspid valve stenosis. There is mild tricuspid valve regurgitation. No pulmonary hypertension, estimated pulmonary arterial systolic pressure is 29 mmHg and systemic blood pressure of 116 mmHg in systole. Pericardium/Pleural The pericardium appears normal. There is no pericardial effusion. No pleural effusion visualized. Inferior Vena Cava Not well visualized inferior vena cava. Aorta The aortic measurements are indexed to age and body surface area. The aortic root at the sinus of Valsalva is not well visualized. The prox ascending aorta is not well visualized. Summary 1. Hyperdynamic. Left ventricle size is normal and systolic function is normal. Visually estimated ejection fraction is 65-70%. There is grade I diastolic dysfunction. 2. Right ventricle size is normal and systolic function is normal. Estimated RVSP is 29 mmHg. 3. There is trace mitral valve regurgitation. 4. There is mild tricuspid valve regurgitation. 5. Not well visualized inferior vena cava. Report Signatures Finalized by Shant Larsen on 07/17/2025 02:01 PM
--- NOTE | 2025-07-13 21:15 | PD.RESHP ---
Documentation for date of: 07/13/25 HPI History of Present Illness History of present illness: Chief complaint: Altered mentation HPI: Mr. Antunez is a 45-year-old male with past medical history of benzodiazepine abuse, chronic neuropathic pain and type II ggp-[id number] diabetes mellitus, who was brought to the ED after mother noticed patient was extremely drowsy this morning. Patient was last in his normal state of health around dinnertime on 07/12/2025. Most of the history obtained from ED documentation and mother at bedside, this morning, patient was supposed to go to [place] to meet his girlfriend, when mother went to the room, patient was very drowsy and minimally responsive. He was only responding with moans and groans, so mother decided to call EMS. Last known well unknown. On scene patient was a GCS of 7 and found lying in bed, with urine incontinence. Bilateral pupils were dilated and no Narcan given on scene. En route to ED patient was given Narcan 2 mg IV with no change. Patient has previously been hospitalized for benzodiazepine use disorder, however as per ED evaluation, this visit patient's U tox has been negative. On arrival, per EMS documentation GCS was 5 and on ED physician evaluation GCS was 9. Patient was intubated to protect the airway while in the ED. Per ED physician, mother denied any recent sick contacts or systemic symptoms. Patient is fairly independent in his ADLs and was in his normal state of health until yesterday. In the ED, vitals were within normal limits. Bedside fingerstick glucose 296. Initial laboratory workup remarkable for leukocytosis WBC 12.4 neutrophil predominant, hemoconcentration Hb 16.3, mildly elevated ESR 17, renal liver function within normal limits, lactic acid within normal limits. Ammonia <10, trops negative and subclinical hypothyroid low TSH 0.40, normal free T4. Urinalysis showed 4+ glucose, 4 RBC, 3 WBC but otherwise sterile no bacteria. Urine toxicology showed positive results only for THC. On imaging, chest x-ray negative for any consolidation, no signs of aspiration at this time. Cervical spine CT and head CT negative for any acute findings. CT chest abdomen pelvis showed bibasilar lung opacity, moderate vascular congestion and moderate disc narrowing at L5-S1. Patient was admitted for the work-up and management of acute encephalopathy, possibly in the setting of benzodiazepine withdrawal. Patient on propofol for sedation and Versed to help with withdrawal. In-house neurologist Dr. Zarco is consulted, pending recommendations. 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 Overweight BMI 29 HEENT Pupil mildly dilated, but PERRLA. Patent nares. Trachea midline. Respiratory Chest normal on inspection, audible breath sounds on auscultation bilaterally. Cardiovascular S1 and S2 audible, RRR. No murmurs or carotid bruit. No gross JVD. Abdominal Soft and BS + ; non tender to palpation in all quadrants. Musculoskeletal Extremities tone within normal limits. No LE edema. Neurological Unable to assess. On sedation; MV: AC/VC VT 500 , RR 20 , PEEP 5 , FiO2 30% Skin Warm, dry and intact. No apparent lesions. Results: Labs 07/14/25 04:49 07/14/25 04:49 Labs: Short CBC 07/13/25 Range/Units 16:40 WBC 12.4 H (3.8-10.6) Thou/mm3 Hgb 16.3 H (13.5-16.0) g/dL Hct 47.8 (41.0-53.0) % Plt Count 227 (140-440) Thou/mm3 BMP 07/13/25 16:40 Sodium 140 Potassium 4.2 Chloride 103 Carbon Dioxide 22.9 BUN 11 Creatinine 1.0 Glucose 297 H Calcium 9.9 Cardiac Enzymes 07/13/25 Range/Units 16:40 Total Creatine Kinase 60 (34-171) U/L Troponin I < 0.002 (0.0-0.045) ng/mL Liver Function 07/13/25 Range/Units 16:40 Total Bilirubin 1.0 (0.3-1.2) mg/dL Direct Bilirubin 0.4 H (0.0-0.3) mg/dL AST 42 H (0-34) U/L ALT 78 H (10-49) U/L Alkaline Phosphatase 107 (46-116) U/L Albumin 5.0 (3.5-5.0) gm/dL Urine 07/13/25 Range/Units 16:40 Urine Color Lt-Yellow (Lt Yel-Yel) Urine Clarity Clear (Clear/Hazy) Urine pH 5.5 (5.0-7.0) Ur Specific [place] 1.014 (1.001-1.035) Urine Protein Negative (Neg - Trace) Urine Glucose (UA) 4+ A (Negative) ABG Interpretation ABG results: 07/13/25 17:14 ABG pH 7.33 L ABG pCO2 38 ABG pO2 534 H ABG HCO3 20 ABG O2 Saturation 99 H ABG Base Excess -6 L Quality Measures Quality Measures VTE prophylaxis Medications Home Medications and Allergies Home Medications ?Medication ?Instructions ?Recorded ?Confirmed ?Type alprazolam 1 mg tablet 1 mg PO TID 01/30/20 01/30/20 History cyclobenzaprine 10 mg tablet 10 mg PO QDAY PRN Muscle Spasm 01/30/20 01/30/20 History frovatriptan 2.5 mg tablet 2.5 mg PO Q2H PRN Migraine Headache 01/30/20 01/30/20 History gabapentin 300 mg capsule 300 mg PO TID 01/30/20 01/30/20 History hydrocodone 10 mg-acetaminophen 1 tab PO Q8H 01/30/20 01/30/20 History 325 mg tablet ([place]) Allergies Allergy/AdvReac Type Severity Reaction Status Date / Time Sulfa (Sulfonamide Allergy Severe Rash Verified 03/20/25 15:30 Antibiotics) Visit Medications Acetaminophen (Acetaminophen 325 Mg Tablet) 1,000 mg PO Q6H PRN PRN Reason: Fever >99.9 Stop: 08/12/25 20:35 Enoxaparin Sodium (Enoxaparin Sod Inj 40 Mg/0.4 Ml Syringe) 40 mg SC QPM KRYSTAL Stop: 07/27/25 20:59 Famotidine (Famotidine Inj 10 Mg/Ml Vial 2 Ml) 20 mg IVP Q12HR KRYSTAL Stop: 08/12/25 20:59 Propofol (Diprivan Ivpb) 1,000 mg in 100 mls @ 2.634 mls/hr IV .Q24H PRN; Protocol PRN Reason: Per Protocol Stop: 08/12/25 16:31 Last Admin: 07/13/25 20:01 Dose: 50 mcg/kg/min, 26.34 mls/hr Midazolam HCl (Versed Pf Inj In Ns Premix) 100 mg in 100 mls @ 1 mls/hr IV .Q24H PRN; Protocol PRN Reason: Per Protocol Stop: 07/18/25 17:16 Last Titration: 07/13/25 19:37 Dose: 3 mg/hr, 3 mls/hr Ondansetron HCl (Ondansetron Inj 2 Mg/Ml Inj 2 Ml) 4 mg IVP Q6H PRN; Protocol PRN Reason: NAUSEA OR VOMITING Stop: 08/12/25 20:35 Discontinued Medications Etomidate (Etomidate Inj 2 Mg/Ml Vial 10 Ml) 20 mg IVP X1 ONE Stop: 07/13/25 16:28 Last Admin: 07/13/25 16:29 Dose: 20 mg Flumazenil (Flumazenil Inj 0.1 Mg/Ml Vial 10 Ml) 0.2 mg IVP X1 ONE Stop: 07/13/25 16:22 Last Admin: 07/13/25 16:19 Dose: 0.2 mg Lactated Ringer's (Lactated Ringers) 1,000 mls @ 1,000 mls/hr IV .Q1H ONE Stop: 07/13/25 17:19 Last Infusion: 07/13/25 18:21 Dose: Infused Lactated Ringer's (Lactated Ringers) 1,000 mls @ 1,000 mls/hr IV .Q1H ONE Stop: 07/13/25 17:20 Last Infusion: 07/13/25 19:30 Dose: Infused Naloxone HCl (Naloxone Inj 0.4 Mg/Ml Vial) 4 mg IV X1 ONE Stop: 07/13/25 16:22 Last Admin: 07/13/25 16:38 Dose: Not Given Ondansetron HCl (Ondansetron Inj 2 Mg/Ml Inj 2 Ml) 4 mg IVP X1 ONE; Protocol Stop: 07/13/25 16:22 Last Admin: 07/13/25 18:49 Dose: Not Given Succinylcholine Chloride (Succinylcholine Inj 20 Mg/Ml Vial 10 Ml) 100 mg IV X1 ONE Stop: 07/13/25 16:28 Last Admin: 07/13/25 16:21 Dose: 100 mg Assessment & Plan Plan Mr. Antunez is a 45-year-old male admitted to ICU for acute encephalopathy, possible benzodiazepine withdrawal s/p intubation to protect airway. NEURO Acute encephalopathy Hx of benzodiazepine abuse Chronic neuropathic pain Dx: - 07/13: this morning, patient was supposed to go to [place] to meet his girlfriend, when mother went to the room, patient was very drowsy and minimally responsive. He was only responding with moans and groans, - Patient has previously been hospitalized for benzodiazepine use disorder. Last known well unknown. On scene patient was a GCS of 7 and found lying in bed, with urine incontinence. - Bilateral pupils were dilated. En route to ED patient was given Narcan 2 mg IV with no change. - On arrival, per EMS documentation GCS was 5 and on ED physician evaluation GCS was 9. Patient was intubated to protect the airway while in the ED. - Urine toxicology : positive only for THC - Renal and Liver function within normal limits, Ammonia <10 - Lactic acid within normal limits - Cervical spine CT : negative - Head CT : negative for any acute findings - CT chest abdomen pelvis : moderate disc narrowing at L5-S1. Rx: - ED started on propofol for sedation and Versed to help with withdrawal - In-house neurologist Dr. Zarco is consulted, pending recommendations. Unknown etiology at this time, likely benzo withdrawal - Will continue to monitor on propofol, patient unlikely to need Versed at this time. MAP >100 - As needed acetaminophen 1 g every 6 hours to prevent hyperthermia - Started on insulin sliding scale to keep patient euglycemic - Day team to follow-up with further neuro recs. Patient may need an MRI brain for further evaluation. CVS No active problems PULM AHRF- intubated for airway protection Dx: - Last known well unknown. On scene patient was a GCS of 7 and found lying in bed, with urine incontinence. Bilateral pupils were dilated. En route to ED patient was given Narcan 2 mg IV with no change. - On arrival, per EMS documentation GCS 5 and on ED physician evaluation GCS was 9. Patient was intubated to protect the airway while in the ED. - CT chest abdomen pelvis : bibasilar lung opacity, moderate vascular congestion - No known hx of lung disorders. Otherwise in good health. Rx: - MV: AC/VC VT 500 , RR 20 , PEEP 5, FiO2 30%; O2 sats 98-100% - Day team to evaluate for possible extubation trial tomorrow once sedation turned off GI/Hep No active problems RENAL No active problems HEME/ONC Leukocytosis Hemoconcentration Dx: - Leukocytosis WBC 12.4 neutrophil predominant - Hemoconcentration Hb 16.3, Hct 47.8% Rx: - Unlikely infectious etiology for leukocytosis. Anticipate improvement my am labs - Patient received IVF 2L in ED, anticipate correction. Hemoconcentration likely due to dehydration ENDO Type 2 NIDDM Peripheral neuropathy Dx: - History of type 2 Non insulin-dependent DM - Home medication: Metformin 500mg bID - Glucose 297 on chem panel, Urinalysis showed 4+ glucose Rx: - Started step2 insulin sliding scale q6H - Hypoglycemia protocol in place - HbA1c ordered for a.m. draw - Day team to start insulin Degludec Subclinical hypothyroid Dx: subclinical hypothyroid low TSH 0.40, normal free T4 Rx: Can follow up outpatient ID No active problems ICU Health maintenance: Dispo: Admit to ICU for acute metabolic encephalopathy s/p intubation protect airway Diet: N.p.o. DVT ppx: Enoxaparin 40mg SC daily GI ppx: Famotidine 20 mg twice daily Mechanical ventilation: Yes, Mode: ACVC Sedation: Yes, Propofol IV lines: 2 pIV Central line: No Arterial line: No Thomas: Yes (started 07/13/2025- Code status: FULL CODE Plan of care discussed with attending Isi Golden M.D. PGY3 Disclaimer: Minor errors in mock up assembler may be present as this note was dictated using voice recognition software. Attending Provider Attestation/Addendum After examination of the patient and review of the clinical data I feel that this patient needs admission to the hospital for further treatment/evaluation. TOTAL CC TIME: 45 MIN TOTAL TIME: 45 Minutes of direct medical management and planning of care. I Delores Duggan MD, attest that I was physically present for [place] portions of evaluation, and examined patient, labs and imagings and plan of care were discussed with IM residents team, and I agree with the findings and plans documented above.
[2025-07-13 21:25] LABS: Free T4 (Free Thyroxine) 1.59 ng/dL (0.89-1.76)
[2025-07-13] MEDS: ENOXAPARIN SOD INJ 40 MG/0.4 ML SYRINGE SC (22:31)
[2025-07-13] MEDS: FAMOTIDINE INJ 10 MG/ML VIAL 2 ML 20 MG IVP (22:31)
--- NOTE | 2025-07-13 22:43 | PC.NURSE ---
Addendum entered by Jim Davis RN 07/13/25 22:46: MADE AWARE AND OKAY WITH ELEVATED BP AT TIME OF 1999 Original Note: PER MD FIONA DR MADE AWARE AND OKAY WITH ELEVATED BP FROM PROPOFOL
--- NOTE | 2025-07-13 22:49 | PC.NURSE ---
CALL DR LINARES, VIJAY MADE AWARE OF ELEVATED BP MAP OF 119. NEW ORDER TO STOP VERSED, MD LINARES WILL PUT ORDER FOR FENTANYL
--- NOTE | 2025-07-13 23:24 | PC.NURSE ---
MADE [address] LINARES TO CLARIFY MED ORDER. NO RESPONSE, WILL CALL BACK AGAIN
--- NOTE | 2025-07-13 23:34 | PC.NURSE ---
CALL MADE TO DR JAIMES TO CHANGE PROPOFOL RASS GOAL TO -3 TO MATCH NEW FENTANYL ORDER RASS SCORE GOAL OF -3. STATED HE WOULD DO IT
--- NOTE | 2025-07-13 23:49 | PC.NURSE ---
CALLED DR. JAIMES TO CONFIRM MEDICATION ORDERS FOR VERSED, PROPOFOL AND FENTANYL. PER DR GIVE VERSED 2MG FOR THE NEXT 2HOURS, THEN DECREASE TO 1MG FOR ONE HOUR AND THEN TURN VERSED OFF. DO NOT START THE FENTANYL ORDER UNTIL PATIENT IS OFF THE VERSED DRIP.
[2025-07-14] VITALS (100 sets, daily range): BP systolic 91–156; BP diastolic 39–113; PULSE 65–164; RESP 14–33; TEMP 36.3–37.1; O2SAT 85–100; BMI 29.4; BMI 29.3
[2025-07-14] MEDS: INSULIN LISPRO (AdmeLOG) 1 UNIT/0.01 ML UNIT SC ×3 (00:09→18:38)
[2025-07-14] MEDS: MIDAZOLAM/NS 100 MG IVPB 100 MG/100 ML BAG IV (00:11)
[2025-07-14] MEDS: PROPOFOL 1,000 MG IVPB 1,000 MG/100 ML VIAL 26.34 MG IV ×2 (00:13→03:57)
[2025-07-14] MEDS: fentaNYL 2,500 MCG/250 ML BAG 2,500 MCG/250 ML BAG IV (03:01)
[2025-07-14 04:29] LABS: Base Excess 6 (-3-3); HCO3 27 mEq/L (20-26); Inspired Oxygen, FIO2 30 %; O2 Saturation 97 % (91-98); PCO2 30 mmHg (32.0-48.0); PO2 83 mmHg (83-108); pH, Arterial 7.57 (7.35-7.45)
[2025-07-14 04:33] LABS: Allen Test Performed/OK; Puncture Site Left Radial
[2025-07-14 06:37] LABS: Basophils # (Auto) 0.0 Thou/mm3 (0.0-0.2); Basophils % (Auto) 0 % (0-2.5); Eosinophils # (Auto) 0.1 Thou/mm3 (0.0-0.5); Eosinophils % (Auto) 1 % (0-10); Hematocrit 41.8 % (41.0-53.0); Hemoglobin 14.6 g/dL (13.5-16.0); Immature Granulocytes Auto 0.05 Thou/mm3 (0.00-0.00); Lymphocytes # (Auto) 0.8 Thou/mm3 (1.0-4.8); Lymphocytes % (Auto) 6 % (10-50); Mean Corpuscular HGB Conc 34.9 g/dl (31.0-37.0); Mean Corpuscular Hemoglobin 31.1 pg (25.0-35.0); Mean Corpuscular Volume 89 fL (80-100); Monocytes # (Auto) 0.7 Thou/mm3 (0.0-0.8); Monocytes % (Auto) 5 % (0-12); Neutrophils # (Auto) 12.1 Thou/mm3 (1.8-7.7); Neutrophils % (Auto) 88 % (37-80); Nucleated Red Blood Cell # 0.00 Thou/mm3 (0.00-0.00); Nucleated Red Blood Cell % 0 /100 WBC (0); Platelet Count 210 Thou/mm3 (140-440); RDW Standard Deviation 42.5 fL (35.1-43.9); Red Blood Count 4.69 Miln/mm3 (4.50-5.90); White Blood Count 13.8 Thou/mm3 (3.8-10.6)
[2025-07-14 07:07] LABS: Albumin, Serum 4.3 gm/dL (3.5-5.0); Anion Gap 15 (7-16); BUN/Creatinine Ratio 15 Ratio (12-20); Blood Urea Nitrogen 12 mg/dL (9-23); Calcium 9.5 mg/dL (8.3-10.6); Calcium (Corrected) 9.5 mg/dL (8.5-10.1); Carbon Dioxide 22.7 mMol/L (20.0-31.0); Cardiac Risk Estimate 5.3 RATIO (4.0-6.7); Chloride 101 mMol/L (98-107); Cholesterol 174 mg/dL (132-200); Creatinine (Component) 0.8 mg/dL (0.6-1.3); Estimated Creatinine Clearance 128.3 mL/min (>60); Glucose 278 mg/dL (74-106); HDL Cholesterol 33 mg/dL (40-60); LDL Cholesterol,Calculated 69 mg/dL (0-130); Magnesium 1.9 mg/dL (1.6-2.6); Osmolality,Calculated 287 (275-295); Phosphorous 2.7 mg/dL (2.4-5.1); Potassium 3.4 mMol/L (3.4-5.1); Sodium 139 mMol/L (136-145); Triglycerides 362 mg/dL (30-150); eGFR > 60 See Note
[2025-07-14] MEDS: cefTRIAXone/D5w 1gm IV premix 1 GM/50 ML BAG IV (09:05)
[2025-07-14] MEDS: FAMOTIDINE INJ 10 MG/ML VIAL 2 ML 20 MG IVP (09:05)
[2025-07-14] MEDS: INSULIN DEGLUDEC 5 UNIT/0.05 ML (PER 5 UNITS) 10 UNIT SC ×2 (09:14→18:39)
--- NOTE | 2025-07-14 10:54 | ESPR_ITS ---
<Statement entered by Sangeetha Fabian MD - 07/16/25 18:35> TOTAL CC TIME: 45 MIN I saw and evaluated the patient. I reviewed the resident?s note and agree with findings and plan as documented in the resident?s note. Upon my evaluation, this patient had a high probability of imminent or life- threatening deterioration due to toxic/metabolic encephalopathy, pneumonia (prob aspiration) acute hypoxic resp failure, which required my direct attention, intervention, and personal management. This time is exclusive of time spent on procedures, which are documented separately if performed. wean to PSV as tolerated suspect cyclobenzaprine + gabapentin at least empiric abx f/u clx results <Statement entered by Dandy Calloway MD - 07/14/25 22:49> Patient was admitted overnight for acute encephalopathy likely due to benzodiazepine withdrawal and possible polypharmacy due to chr opioid use, gabapentin and cyclobenzaprine. Patient was unable to protect airways and was intubated and sedated overnight. This morning, patient was weaned off from sedation and was placed on pressure support subsequently extubated maintaining saturation on nasal cannula. Patient became agitated in the afternoon and was restrained. He was given Klonopin 1 mg twice daily as he was taking Xanax at home medication. He was started on Precedex drip, phenobarb 130 milligram x 1 was ordered along with Versed 2 mg x 1, ziprasidone 10 mg IM and Ativan 4 mg x 1 to calm him down. Patient's blood sugar were elevated therefore he was started on degludec 10 units and correction sliding scale. However due to uptrending blood sugars sliding scale was increased to correction scale 3 and long-acting insulin was increased to 15 units subcu daily. Recommend to continue low-dose Precedex with holding off if MAP below 65, heart rate below 60 and respiratory rate below 14. Mother was updated regarding the plan. EKG was ordered to evaluate for QTc prolongation. QTc came 416. With sinus rhythm and no acute ST-T changes. Sputum cultures grew rare GPC with WBC therefore Rocephin will be continued. Blood cultures negative x 24 hours. MRSA screen pending.f/u with A1C. All labs and orders reviewed. I discussed and supervised with the internet e commerce specialist physician who took care of this patient. I personally saw and examined the patient. I agree with most of the assessment and plan. Disclaimer: Despite multiple revisions, due to the dictation software being used, the document bellow may not be free of grammatical errors including phonetic/typographic errors. However, this does not deter from our commitment to providing health care in the patient's best interest in mind. Plan of care discussed with attending Physician Dr. Rui Calloway MD PGY-3 Documentation for date of: 07/14/25 Subjective Subjective Interval history: (History per chart review): Mr. Antunez is a 45-year-old male with past medical history of benzodiazepine abuse, chronic neuropathic pain, type II tfw-hjgbjbw-utdbgvurq diabetes mellitus, TBI, PTSD, Depression, Anxiety who was brought to the ED after mother noticed patient was extremely drowsy this morning. Patient was last in his normal state of health around dinnertime on 07/12/2025. Most of the history obtained from ED documentation and mother at bedside, this morning, patient was supposed to go to [place] to meet his girlfriend, when mother went to the room, patient was very drowsy and minimally responsive. He was only responding with moans and groans, so mother decided to call EMS. Last known well unknown. On scene patient was a GCS of 7 and found lying in bed, with urine incontinence. Bilateral pupils were dilated and no Narcan given on scene. En route to ED patient was given Narcan 2 mg IV with no change. Patient has previously been hospitalized for benzodiazepine use disorder, however as per ED evaluation, this visit patient's U tox has been negative. On arrival, per EMS documentation GCS was 5 and on ED physician evaluation GCS was 9. Patient was intubated to protect the airway while in the ED. Per ED physician, mother denied any recent sick contacts or systemic symptoms. Patient is fairly independent in his ADLs and was in his normal state of health until yesterday. In the ED, vitals were within normal limits. Bedside fingerstick glucose 296. Initial laboratory workup remarkable for leukocytosis WBC 12.4 neutrophil predominant, hemoconcentration Hb 16.3, mildly elevated ESR 17, renal liver function within normal limits, lactic acid within normal limits. Ammonia <10, trops negative and subclinical hypothyroid low TSH 0.40, normal free T4. Urinalysis showed 4+ glucose, 4 RBC, 3 WBC but otherwise sterile no bacteria. Urine toxicology showed positive results only for THC. On imaging, chest x-ray negative for any consolidation, no signs of aspiration at this time. Cervical spine CT and head CT negative for any acute findings. CT chest abdomen pelvis showed bibasilar lung opacity, moderate vascular congestion and moderate disc narrowing at L5-S1. Patient was admitted for the work-up and management of acute encephalopathy, possibly in the setting of suspected benzodiazepine withdrawal s/p seizure(s). Interval History 07/14/2025: Patient today initially continued to be sedated and intubated. Patient was weaned off of sedation and tolerated pressure support with successful extubation at around mid-day. Patient became agitated needing physical restraining by nurses and physicians. Patient was given klonopin 1 mg, precedex drip briefly, ativan 2 mg x2, phenobarb 130 mg, versed 2 mg, ziprasidone 10 mg in order to calm him down. Patient was given 10 u degludec with step 2 sliding scale; had inadequate bedside glucose response, had long acting increased to 15 u SC qday with lispro 5 units TID with step 3 sliding scale. Exam Vital Signs Temp Pulse Resp BP Pulse Ox O2 Del Method FiO2 98.0 F 113 H 22 H 142/96 H 99 Mechanical Ventilation 30 07/14/25 05:00 07/14/25 10:41 07/14/25 04:15 07/14/25 10:41 07/14/25 10:41 07/13/25 22:00 07/14/25 10:41 Narrative Exam General: resting in bed (was given versed/ativan/phenobarb for agitiation earlier); A&Ox2 (person and place) Skin: Warm, dry, intact, no obvious rash. HENT: NCAT, EOMI/PERRL, not icteric. External ears normal. No rhinorrhea. Dry mucous membranes Cardiovascular: Regular rate and rhythm, no murmur, +S1/S2. Respiratory: Lungs CTAB GI: Soft, nontender, non-distended. No guarding or rebound tenderness. : No suprapubic tenderness. No flank tenderness bilaterally. Extremities: no edema, no cyanosis, no clubbing. Extremity pulses present Neuro: Grossly nonfocal. Moving all 4 extremities. CN not formally tested but appear grossly intact. Psychiatric: Was Uncooperative before versed/ativan/phenobarb for agitiation earlier in the day, appropriate affect. Objective Labs 07/14/25 04:49 07/14/25 04:49 Labs: Laboratory Results - last 24 hr 07/13/25 07/13/25 07/13/25 16:40 17:14 20:25 WBC 12.4 H RBC 5.32 Hgb 16.3 H Hct 47.8 MCV 90 MCH 30.6 MCHC 34.1 RDW Std Deviation 43.0 Plt Count 227 Neut % (Auto) 81 H Lymph % (Auto) 13 [place] % (Auto) 4 Eos % (Auto) 1 Baso % (Auto) 0 Neut # (Auto) 10.1 H Lymph # (Auto) 1.6 [place] # (Auto) 0.5 Eos # (Auto) 0.2 Baso # (Auto) 0.0 Immature Gran # (Auto) 0.05 H Absolute Nucleated RBC 0.00 Immature Gran % 0 Nucleated RBC % 0 ESR 17 H PT 10.5 INR 1.0 APTT 27.2 Puncture Site Right Radial ABG pH 7.33 L ABG pCO2 38 ABG pO2 534 H ABG HCO3 20 ABG O2 Saturation 99 H ABG Base Excess -6 L FiO2 100 Sodium 140 Potassium 4.2 Chloride 103 Carbon Dioxide 22.9 Anion Gap 14 BUN 11 Creatinine 1.0 Estim Creat Clear Calc 102.6 eGFR > 60 BUN/Creatinine Ratio 11 L Glucose 297 H Calculated Osmolality 289 Lactic Acid 2.8 H Calcium 9.9 Corrected Calcium 9.9 Phosphorus Magnesium 2.0 Total Bilirubin 1.0 Direct Bilirubin 0.4 H AST 42 H ALT 78 H Alkaline Phosphatase 107 Ammonia < 10 L Total Creatine Kinase 60 Troponin I < 0.002 C-Reactive Prot, Quant < 0.5 B-Natriuretic Peptide < 20 Total Protein 7.4 Albumin 5.0 Globulin 2.4 Albumin/Globulin Ratio 2.1 Triglycerides Cholesterol LDL Cholesterol, Calc HDL Cholesterol Cholesterol/HDL Ratio Lipase 28 Procalcitonin 0.19 TSH 0.40 L Free T4 1.59 Ur Collection Type Clean Catch Urine Color Lt-Yellow Urine Clarity Clear Urine pH 5.5 Ur Specific [place] 1.014 Urine Protein Negative Urine Glucose (UA) 4+ A Urine Ketones Trace Urine Blood Trace Urine Nitrite Negative Urine Bilirubin Negative Urine Urobilinogen (Auto) Negative Ur Leukocyte Esterase Negative Urine RBC 4 H Urine WBC 3 Ur Squamous Epith Cells < 1 Urine Bacteria None Ur Culture Indicated? Not Indicated Urine Opiates Screen Negative Urine Fentanyl Screen Negative Acetaminophen < 2.0 L Ur Barbiturates Screen Negative U Amphetamin/Meth Scrn Negative U Benzodiazepines Scrn Negative U Cocaine Metab Screen Negative U Marijuana (THC) Screen Positive A Ethyl Alcohol < 10.0 07/13/25 07/14/25 07/14/25 20:28 04:18 04:49 WBC 13.8 H RBC 4.69 Hgb 14.6 Hct 41.8 MCV 89 MCH 31.1 MCHC 34.9 RDW Std Deviation 42.5 Plt Count 210 Neut % (Auto) 88 H Lymph % (Auto) 6 L [place] % (Auto) 5 Eos % (Auto) 1 Baso % (Auto) 0 Neut # (Auto) 12.1 H Lymph # (Auto) 0.8 L [place] # (Auto) 0.7 Eos # (Auto) 0.1 Baso # (Auto) 0.0 Immature Gran # (Auto) 0.05 H Absolute Nucleated RBC 0.00 Immature Gran % 0 Nucleated RBC % 0 ESR PT INR APTT Puncture Site Left Radial ABG pH 7.57 H D ABG pCO2 30 L ABG pO2 83 D ABG HCO3 27 H ABG O2 Saturation 97 ABG Base Excess 6 H FiO2 30 Sodium 139 Potassium 3.4 D Chloride 101 Carbon Dioxide 22.7 Anion Gap 15 BUN 12 Creatinine 0.8 Estim Creat Clear Calc 128.3 eGFR > 60 BUN/Creatinine Ratio 15 Glucose 278 H Calculated Osmolality 287 Lactic Acid 1.9 Calcium 9.5 Corrected Calcium 9.5 Phosphorus 2.7 Magnesium 1.9 Total Bilirubin Direct Bilirubin AST ALT Alkaline Phosphatase Ammonia Total Creatine Kinase Troponin I C-Reactive Prot, Quant B-Natriuretic Peptide Total Protein Albumin 4.3 D Globulin Albumin/Globulin Ratio Triglycerides 362 H Cholesterol 174 LDL Cholesterol, Calc 69 HDL Cholesterol 33 L Cholesterol/HDL Ratio 5.3 Lipase Procalcitonin TSH Free T4 Ur Collection Type Urine Color Urine Clarity Urine pH Ur Specific [place] Urine Protein Urine Glucose (UA) Urine Ketones Urine Blood Urine Nitrite Urine Bilirubin Urine Urobilinogen (Auto) Ur Leukocyte Esterase Urine RBC Urine WBC Ur Squamous Epith Cells Urine Bacteria Ur Culture Indicated? Urine Opiates Screen Urine Fentanyl Screen Acetaminophen Ur Barbiturates Screen U Amphetamin/Meth Scrn U Benzodiazepines Scrn U Cocaine Metab Screen U Marijuana (THC) Screen Ethyl Alcohol ABG Interpretation ABG results: 07/13/25 07/14/25 17:14 04:18 ABG pH 7.33 L 7.57 H D ABG pCO2 38 30 L ABG pO2 534 H 83 D ABG HCO3 20 27 H ABG O2 Saturation 99 H 97 ABG Base Excess -6 L 6 H Quality Measures Quality Measures VTE prophylaxis (Lovenox) Assessment & Plan Assessment Current Active Medications: Generic Name Dose Route Start Last Admin Trade Name Freq PRN Reason Stop Dose Admin Acetaminophen 1,000 mg 07/14/25 10:07 Acetaminophen 500 Mg Tablet PO 08/12/25 20:35 Q6H PRN Fever >99.9 Dextrose 50 ml 07/13/25 22:33 Dextrose 50%-Water Inj 50 Ml Syringe IV 08/12/25 22:32 Q15MIN PRN BG <50 OR BG <70 & pt unresponsive Enoxaparin Sodium 40 mg 07/13/25 21:00 07/13/25 22:31 Enoxaparin Sod Inj 40 Mg/0.4 Ml Syringe SC 07/27/25 20:59 40 mg QPM KRYSTAL Administration Famotidine 20 mg 07/13/25 21:00 07/14/25 09:05 Famotidine Inj 10 Mg/Ml Vial 2 Ml IVP 08/12/25 20:59 20 mg Q12HR KRYSTAL Administration Glucagon 1 mg 07/13/25 22:33 Glucagon Inj 1 Mg Vial IM Q15MIN PRN BG <70, and no IV access Fentanyl Citrate 2,500 mcg in 250 mls @ 2.5 mls/hr 07/13/25 22:49 07/14/25 09:00 Sublimaze Inj 2,500 Mcg/250 Ml Bag IV 07/18/25 22:48 25 mcg/hr .Q24H PRN 2.5 mls/hr PER PROTOCOL Titration Protocol 25 MCG/HR Propofol 1,000 mg in 100 mls @ 2.634 mls/hr 07/13/25 23:48 07/14/25 09:00 Diprivan Ivpb IV 08/12/25 16:31 10 mcg/kg/min .Q24H PRN 5.268 mls/hr Per Protocol Titration Protocol 5 MCG/KG/MIN Midazolam HCl 100 mg in 100 mls @ 1 mls/hr 07/13/25 23:53 07/14/25 07:00 Versed Pf Inj In Ns Premix IV 07/18/25 23:52 0 mg/hr .Q24H PRN 0 mls/hr PER PROTOCOL Titration Protocol 1 MG/HR Ceftriaxone Sodium/Dextrose 1 gm in 50 mls @ 100 mls/hr 07/15/25 09:00 Rocephin/D5w 1gm Iv Premix IV 07/22/25 08:59 QDAY KRYSTAL Insulin Degludec 10 unit 07/14/25 08:05 07/14/25 09:32 Insulin Degludec 5 Unit/0.05 Ml (Per 5 Units) SC 08/13/25 08:04 Not Given QDAY KRYSTAL Insulin Human Lispro 0 unit 07/14/25 08:02 Insulin Lispro (Admelog) 1 Unit/0.01 Ml Unit SC 08/13/25 00:00 Q6HR [facility] Protocol Ondansetron HCl 4 mg 07/13/25 20:36 Ondansetron Inj 2 Mg/Ml Inj 2 Ml IVP 08/12/25 20:35 Q6H PRN NAUSEA OR VOMITING Protocol Plan Mr. Antunez is a 45-year-old male admitted to ICU for acute encephalopathy, possible benzodiazepine withdrawal s/p intubation to protect airway. NEURO Acute encephalopathy Hx of benzodiazepine abuse DDx: Benzo withdrawal followed by seizure, Polypharmacy due to Gabapentin,xanax,norco and promethazine Dx: - 07/13: Patient found drowsy and minimally responsive. Last known well unknown. On scene patient was a GCS of 7 and found lying in bed, with urine incontinence s/p seizure. Bilateral pupils were dilated -> narcan no effect. GCS 5 from EMS; GCS 9 in ED ->intubated. - Urine toxicology : positive only for THC - Renal and Liver function within normal limits, Ammonia <10 - Lactic acid within normal limits - Cervical spine CT : negative; Head CT : negative for any acute findiNGS Rx: - Needed to be restrained s/p being off sedation; given klonopin 1 mg, precedex drip briefly, ativan 2 mg x2, phenobarb 130 mg, versed 2 mg, ziprasidone 10 mg in order to calm him down. - If agitation continues, may need to resume precedex drip (HOLD parameters in place: MAP < 65, HR <60, RR <14) - In-house neurologist Dr. Zarco is consulted, pending recommendations. Unknown etiology at this time, likely benzo withdrawal RRx: - ED started on propofol for sedation and Versed to help with withdrawal CVS No active problems PULM Intubated for airway protection, EXTUBATED 07/14 Aspiration Pneumonia Dx: - Last known well unknown. On scene patient was a GCS of 7 and found lying in bed, with urine incontinence. Bilateral pupils were dilated. En route to ED patient was given Narcan 2 mg IV with no change. - On arrival, per EMS documentation GCS 5 and on ED physician evaluation GCS was 9. Patient was intubated to protect the airway while in the ED. - CT chest abdomen pelvis : bibasilar lung opacity, moderate vascular congestion - No known hx of lung disorders. Otherwise in good health. -Sputum gram stain showed wbcs and GPC pending cx Rx: -Extubated, Pass SBT trial -Oxygen as needed if spo2 below 90% -Continue with Rocephin GI/Hep No active problems RENAL No active problems HEME/ONC Leukocytosis 2/2 seizure(s) Hemoconcentration, RESOLVED Dx: - Leukocytosis WBC 12.4 ->13.8; no fever; no cough; no respiratory distress - CT CAP shows bibasilar lung opacity, possible aspiration pneumonia s/p seizure(s) - Hb 16.3, Hct 47.8% -> 14.6 Rx: - Will continue to trend wbc RRx: - IVF 2L in ED, anticipate correction. Hemoconcentration likely due to dehydration ENDO Type 2 NIDDM Dx: - History of type 2 Non insulin-dependent DM - Home medication: Metformin 500mg bID - Glucose 297 on chem panel, Urinalysis showed 4+ glucose Rx: - Increased insulin sliding scale to step 3 - Increased Degludec 15 u SC q day - Lispro 5 u SC q8hr - Glucose q6hr checks - Hypoglycemia protocol in place - HbA1c ordered for a.m. draw Subclinical hypothyroid Dx: subclinical hypothyroid low TSH 0.40, normal free T4 Rx: Can follow up outpatient [facility] Chronic osteoporotic compressions T9, T8, T7, T6, T5 Dx CT showed Chronic osteoporotic compressions T9, T8, T7, T6, T5 Rx He takes gabapentin, norco ,and cyclobenzaprine Outpatient follow up ID Aspiration Pneumonia Dx Sputum gram stain GPC and wbcs Rx Continue with Rocephin Pending sputum cx ICU Health maintenance: Dispo: Admit to ICU for acute metabolic encephalopathy Diet: carb consistent diet DVT ppx: Enoxaparin 40mg SC daily GI ppx: Famotidine 20 mg twice daily Mechanical ventilation: None Sedation: No IV lines: peripheral Central line: No Arterial line: No Thomas: Removed 07/14 Code status: FULL CODE Patient plan of care was discussed with the attending physician, Dr. Fabian & senior resident Dr. Brodie Mackay MD PGY-1
--- NOTE | 2025-07-14 11:32 | PC.SS ---
COOPER HELPER conducted bedside contact with the patient conduct initial assessment and to discuss discharge planning.? At bedside with patient was Junie Antunez , mother.? Information for assessment obtained from the patient?s mother due to the patient on mechanical ventilator.? Patient resides at home with mother.? Patient is unemployed.? Patient does not utilize DME to assist with ambulation.? Patient does not utilize home oxygen.? Patient possesses the ability to complete ADL?s independently.? The patient?s surrogate medical decision maker is mother, Junie Antunez.? Patient is not aligned with PCP services.? The patient does not participate with dialysis.? Discharge plan is for the patient to return home at the time of discharge.? loan services professional will assist the patient with scheduling a PCP follow up with local clinic or [facility] if patient is receptive.? Family will provide transportation on behalf of the patient.? No further intervention required at this time, social media marketing analyst will be available to address any further concerns.? Next of Kin: Jyoti Antunez D/C Plan: Home
[2025-07-14] MEDS: DEXMEDETOMIDINE 400 MCG IVPB 400 MCG/100 ML BAG IV (13:15)
[2025-07-14] MEDS: LORazepam 2 MG/ML VIAL IVP ×3 (13:36→19:44)
[2025-07-14] MEDS: PHENobarbital Inj 130 MG, SODIUM CHLORIDE 0.9% FLUSH 12 ML IVP (13:57)
[2025-07-14] MEDS: MIDAZOLAM INJ 1 MG/ML VIAL 2 ML 2 MG IVP ×2 (14:04→20:38)
[2025-07-14] MEDS: ZIPRASIDONE INJ 20 MG/ML VIAL (NON-FORMULARY) 10 MG IM (14:19)
[2025-07-14] MEDS: DEXMEDETOMIDINE 400 MCG IVPB 400 MCG/100 ML BAG 17.56 MCG IV ×2 (17:05→20:15)
--- NOTE | 2025-07-14 17:23 | EKG_ITS ---
[facility] Test Date: 2025-07-14 Pat Name: ALBERTO DOMINGUEZ [facility] Gender[facility] All Source Intelligence: ECOBN1 : 1980 Requested By: Dustin Stapleton Order Number: [id number] Reading MD: Dustin Stapleton Measurements Intervals Howard Rate: 79 P: 36 AL: 150 QRS: 10 QRSD: 102 T: 43 QT: 362 QTc: 416 Interpretive Statements SINUS RHYTHM POSSIBLE LEFT VENTRICULAR HYPERTROPHY Compared to ECG 10/20/2019 14:33:56 No significant changes /[id number]/S0/[id number]
[2025-07-14] MEDS: INSULIN LISPRO (AdmeLOG) 1 UNIT/0.01 ML UNIT 5 UNIT SC (18:38)
[2025-07-14] MEDS: ENOXAPARIN SOD INJ 40 MG/0.4 ML SYRINGE SC (19:47)
[2025-07-14] MEDS: POTASSIUM CHL 10 mEq IVPB 10 MEQ/100 ML BAG 100 MEQ IV ×4 (20:37→23:47)
[2025-07-15] VITALS (19 sets, daily range): BP systolic 93–129; BP diastolic 61–92; PULSE 59–120; RESP 16–33; TEMP 36.6–37.2; O2SAT 78–100; BMI 29.3
[2025-07-15] MEDS: INSULIN LISPRO (AdmeLOG) 1 UNIT/0.01 ML UNIT SC ×3 (01:07→11:51)
--- NOTE | 2025-07-15 02:35 | PC.RT ---
flow titrated to 3L hnc at this time hr 59, RR26, sats 100%
[2025-07-15] MEDS: DEXMEDETOMIDINE 400 MCG IVPB 400 MCG/100 ML BAG 21.95 MCG IV (03:12)
[2025-07-15] MEDS: MIDAZOLAM INJ 1 MG/ML VIAL 2 ML 2 MG (04:24)
[2025-07-15] MEDS: MIDAZOLAM INJ 1 MG/ML VIAL 2 ML 2 MG IVP (04:35)
[2025-07-15 05:28] LABS: Basophils # (Auto) 0.0 Thou/mm3 (0.0-0.2); Basophils % (Auto) 0 % (0-2.5); Eosinophils # (Auto) 0.1 Thou/mm3 (0.0-0.5); Eosinophils % (Auto) 1 % (0-10); Hematocrit 38.1 % (41.0-53.0); Hemoglobin 12.7 g/dL (13.5-16.0); Immature Granulocytes Auto 0.05 Thou/mm3 (0.00-0.00); Lymphocytes # (Auto) 1.8 Thou/mm3 (1.0-4.8); Lymphocytes % (Auto) 14 % (10-50); Mean Corpuscular HGB Conc 33.3 g/dl (31.0-37.0); Mean Corpuscular Hemoglobin 31.1 pg (25.0-35.0); Mean Corpuscular Volume 93 fL (80-100); Monocytes # (Auto) 0.8 Thou/mm3 (0.0-0.8); Monocytes % (Auto) 6 % (0-12); Neutrophils # (Auto) 9.8 Thou/mm3 (1.8-7.7); Neutrophils % (Auto) 78 % (37-80); Nucleated Red Blood Cell # 0.00 Thou/mm3 (0.00-0.00); Nucleated Red Blood Cell % 0 /100 WBC (0); Platelet Count 170 Thou/mm3 (140-440); RDW Standard Deviation 44.6 fL (35.1-43.9); Red Blood Count 4.08 Miln/mm3 (4.50-5.90); White Blood Count 12.6 Thou/mm3 (3.8-10.6)
[2025-07-15 05:41] LABS: Glucose Estimated Average 223 mg/dL (80-131); Hemoglobin A1C 9.4 % Hgb (4.8-6.0)
[2025-07-15 05:51] LABS: Alanine Aminotransferase 46 U/L (10-49); Albumin, Serum 4.3 gm/dL (3.5-5.0); Albumin/Globulin Ratio 2.4 (1.2-2.2); Alkaline Phosphatase 87 U/L (46-116); Anion Gap 10 (7-16); Aspartate Amino Transferase 27 U/L (0-34); BUN/Creatinine Ratio 19 Ratio (12-20); Bilirubin,Total 1.4 mg/dL (0.3-1.2); Blood Urea Nitrogen 17 mg/dL (9-23); Calcium 9.1 mg/dL (8.3-10.6); Calcium (Corrected) 9.1 mg/dL (8.5-10.1); Carbon Dioxide 28.4 mMol/L (20.0-31.0); Chloride 104 mMol/L (98-107); Creatinine (Component) 0.9 mg/dL (0.6-1.3); Estimated Creatinine Clearance 114.0 mL/min (>60); Globulin 1.8 gm/dL (2.3-3.5); Glucose 186 mg/dL (74-106); Magnesium 2.2 mg/dL (1.6-2.6); Osmolality,Calculated 289 (275-295); Phosphorous 3.6 mg/dL (2.4-5.1); Potassium 3.6 mMol/L (3.4-5.1); Sodium 142 mMol/L (136-145); Total Protein 6.1 gm/dL (5.7-8.2); eGFR > 60 See Note
[2025-07-15] MEDS: DEXMEDETOMIDINE 400 MCG IVPB 400 MCG/100 ML BAG 17.56 MCG IV (07:37)
--- NOTE | 2025-07-15 08:22 | PD.INTPROG ---
Documentation for date of: 07/15/25 Exam Vital Signs Temp Pulse Resp BP Pulse Ox O2 Del Method O2 Flow Rate 98.2 F 60 25 H 116/76 100 Nasal Cannula 3 07/15/25 04:00 07/15/25 06:00 07/15/25 06:00 07/15/25 06:00 07/15/25 06:00 07/14/25 16:00 07/14/25 16:00 FiO2 30 07/14/25 10:41 Objective - Pocket Machine Operator Labs 07/15/25 04:07 07/15/25 04:07 Labs: Laboratory Results - last 24 hr 07/15/25 04:07 WBC 12.6 H RBC 4.08 L Hgb 12.7 L Hct 38.1 L MCV 93 MCH 31.1 MCHC 33.3 RDW Std Deviation 44.6 H Plt Count 170 D Neut % (Auto) 78 Lymph % (Auto) 14 [place] % (Auto) 6 Eos % (Auto) 1 Baso % (Auto) 0 Neut # (Auto) 9.8 H Lymph # (Auto) 1.8 [place] # (Auto) 0.8 Eos # (Auto) 0.1 Baso # (Auto) 0.0 Immature Gran # (Auto) 0.05 H Absolute Nucleated RBC 0.00 Immature Gran % 0 Nucleated RBC % 0 Sodium 142 Potassium 3.6 Chloride 104 Carbon Dioxide 28.4 Anion Gap 10 BUN 17 Creatinine 0.9 Estim Creat Clear Calc 114.0 eGFR > 60 BUN/Creatinine Ratio 19 [address] Glu mg/dL 223 H Hemoglobin A1c 9.4 H Calculated Osmolality 289 Calcium 9.1 Corrected Calcium 9.1 Phosphorus 3.6 Magnesium 2.2 Total Bilirubin 1.4 H AST 27 ALT 46 Alkaline Phosphatase 87 D Total Protein 6.1 Albumin 4.3 Globulin 1.8 L Albumin/Globulin Ratio 2.4 H Assessment & Plan Provider Notation Provider Notation: Although this document has been carefully reviewed, there may still be some phonetic and other typographical errors. These errors are purely grammatical due to imperfections in the software program and should not be construed in any way to compromise the substance of the patient's medical care during this visit. Thank you for the opportunity and privilege in assisting you with this patient's care and management.
--- NOTE | 2025-07-15 08:27 | ESPR_ITS ---
<Statement entered by Kole Shelton MD - 07/15/25 16:38> I have reviewed the note and agree with the resident's assessment & plan with exceptions as below. I have personally reviewed labs, imaging, home meds/prior records, examined the patient, formulated and discussed management plan with my attending. Patient was seen and examined at bedside this morning. No acute overnight events. Patient Versed pushes x 2 due to agitation. In the morning patient was still very angry and wanting to leave AMA, but fianc? and mother were at bedside who were able to convince the patient to stay in the hospital. Patient on multiple psychiatric medications at home, but patient did not mention any psychiatric disorders. When asked to he had an intentional overdose or any thoughts about harming self or others patient refused. At this time patient most likely had a benzodiazepine overdose given requirement to intubate to protect airway and given that patient had only 10 pills of clonazepam left and recently refilled bottle. Patient this morning was stable enough to be downgraded to the medical floors as he was off Precedex and was not agitated at this time. Started patient on Librium 50 mg twice daily to avoid any withdrawals and start Depakote 250 mg twice daily for mood stabilizing. Discontinued short acting benzodiazepines and Klonopin. Would recommend antipsychotics as needed for agitation. Continue Rocephin for PNA. Kole Shelton PGY2 Disclaimer: Even though this this note was dictated by speech recognition and even though it was carefully revised there may still be minor errors in [employer] due to voice recognition software. Documentation for date of: 07/15/25 Subjective Subjective Interval history: (History per chart review): Mr. Antunez is a 45-year-old male with past medical history of benzodiazepine abuse, chronic neuropathic pain, type II dnd-mdlacbg-vpbciugkm diabetes mellitus, TBI, PTSD, Depression, Anxiety who was brought to the ED after mother noticed patient was extremely drowsy this morning. Patient was last in his normal state of health around dinnertime on 07/12/2025. Most of the history obtained from ED documentation and mother at bedside, this morning, patient was supposed to go to [place] to meet his girlfriend, when mother went to the room, patient was very drowsy and minimally responsive. He was only responding with moans and groans, so mother decided to call EMS. Last known well unknown. On scene patient was a GCS of 7 and found lying in bed, with urine incontinence. Bilateral pupils were dilated and no Narcan given on scene. En route to ED patient was given Narcan 2 mg IV with no change. Patient has previously been hospitalized for benzodiazepine use disorder, however as per ED evaluation, this visit patient's U tox has been negative. On arrival, per EMS documentation GCS was 5 and on ED physician evaluation GCS was 9. Patient was intubated to protect the airway while in the ED. Per ED physician, mother denied any recent sick contacts or systemic symptoms. Patient is fairly independent in his ADLs and was in his normal state of health until yesterday. In the ED, vitals were within normal limits. Bedside fingerstick glucose 296. Initial laboratory workup remarkable for leukocytosis WBC 12.4 neutrophil predominant, hemoconcentration Hb 16.3, mildly elevated ESR 17, renal liver function within normal limits, lactic acid within normal limits. Ammonia <10, trops negative and subclinical hypothyroid low TSH 0.40, normal free T4. Urinalysis showed 4+ glucose, 4 RBC, 3 WBC but otherwise sterile no bacteria. Urine toxicology showed positive results only for THC. On imaging, chest x-ray negative for any consolidation, no signs of aspiration at this time. Cervical spine CT and head CT negative for any acute findings. CT chest abdomen pelvis showed bibasilar lung opacity, moderate vascular congestion and moderate disc narrowing at L5-S1. Patient was admitted for the work-up and management of acute encephalopathy, possibly in the setting of suspected benzodiazepine withdrawal s/p seizure(s). Interval History 07/14/2025: Patient today initially continued to be sedated and intubated. Patient was weaned off of sedation and tolerated pressure support with successful extubation at around mid-day. Patient became agitated needing physical restraining by nurses and physicians. Patient was given klonopin 1 mg, precedex drip briefly, ativan 2 mg x2, phenobarb 130 mg, versed 2 mg, ziprasidone 10 mg in order to calm him down. Patient was given 10 u degludec with step 2 sliding scale; had inadequate bedside glucose response, had long acting increased to 15 u SC qday with lispro 5 units TID with step 3 sliding scale. 07/15/2025: Patient breathing comfortably on room air today without any increased work of breathing. Patient required Versed x2 overnight for excessive agitation. Patient continues to be very agitated, frequently requesting to leave the hospital. The patient's fianc? and mother were at the patient's bedside and ultimately were able to convince the patient to not leave AMA. Patient states that he was prescribed clonazepam by the ED, supposedly for PTSD. Med rec was performed with medications brought by jerome?. It is noted that the patient is on quetiapine and olanzapine, however the patient did not mention any history of additional psychiatric disorders. When questioned about potential overdose, the patient denied and stated that he did not take more of his medications than prescribed. It was noted that the patient only had 10 pills of his clonazepam remaining although the bottle was recently prescribed on 07/05/2025 and initially had 60 pills at that time. Patient is downgraded to medical floors given continued stability after Precedex drip was discontinued this morning and tolerating extubation without complication. Given the patient's agitation, the patient was started on chlordiazepoxide 50 mg twice daily and Depakote 250 mg twice daily. Lorazepam and midazolam PRNs were discontinued. Exam Vital Signs Temp Pulse Resp BP Pulse Ox O2 Del Method O2 Flow Rate 98.2 F 60 25 H 116/76 100 Nasal Cannula 3 07/15/25 04:00 07/15/25 06:00 07/15/25 06:00 07/15/25 06:00 07/15/25 06:00 07/14/25 16:00 07/14/25 16:00 FiO2 30 07/14/25 10:41 Narrative Exam Physical Exam: General: Alert, no acute distress. Agitated. Skin: Warm, dry, intact. Head: Normocephalic, atraumatic. Eye: Normal conjunctiva, PERRL. Cardiovascular: Regular rate and rhythm, no murmur, +S1/S2. Respiratory: Lungs are clear to auscultation, respirations unlabored, no crackles, no wheezing. Gastrointestinal: Soft, nontender, non-distended. No guarding or rebound tenderness. Extremities: No edema, no cyanosis, no clubbing. 2+ radial pulse bilaterally, 2+ pedal pulse bilaterally. Neuro: No focal deficits observed. Conversant, moving all extremities. No overt cerebellar signs/incoordination. Objective Labs 07/16/25 04:45 07/16/25 04:45 Labs: Laboratory Results - last 24 hr 07/15/25 04:07 WBC 12.6 H RBC 4.08 L Hgb 12.7 L Hct 38.1 L MCV 93 MCH 31.1 MCHC 33.3 RDW Std Deviation 44.6 H Plt Count 170 D Neut % (Auto) 78 Lymph % (Auto) 14 Lyon % (Auto) 6 Eos % (Auto) 1 Baso % (Auto) 0 Neut # (Auto) 9.8 H Lymph # (Auto) 1.8 Lyon # (Auto) 0.8 Eos # (Auto) 0.1 Baso # (Auto) 0.0 Immature Gran # (Auto) 0.05 H Absolute Nucleated RBC 0.00 Immature Gran % 0 Nucleated RBC % 0 Sodium 142 Potassium 3.6 Chloride 104 Carbon Dioxide 28.4 Anion Gap 10 BUN 17 Creatinine 0.9 Estim Creat Clear Calc 114.0 eGFR > 60 BUN/Creatinine Ratio [address] Glu mg/dL 223 H Hemoglobin A1c 9.4 H Calculated Osmolality 289 Calcium 9.1 Corrected Calcium 9.1 Phosphorus 3.6 Magnesium 2.2 Total Bilirubin 1.4 H AST 27 ALT 46 Alkaline Phosphatase 87 D Total Protein 6.1 Albumin 4.3 Globulin 1.8 L Albumin/Globulin Ratio 2.4 H ABG Interpretation ABG results: 07/13/25 07/14/25 17:14 04:18 ABG pH 7.33 L 7.57 H D ABG pCO2 38 30 L ABG pO2 534 H 83 D ABG HCO3 20 27 H ABG O2 Saturation 99 H 97 ABG Base Excess -6 L 6 H Quality Measures Quality Measures VTE prophylaxis Assessment & Plan Assessment Current Active Medications: Generic Name Dose Route Start Last Admin Trade Name Freq PRN Reason Stop Dose Admin Hydrocodone Bitart/Acetaminophen 1 tab 07/14/25 12:27 Hydrocodone/Apap 7.5/325 Tablet PO 07/19/25 12:26 Q6HR PRN PAIN Clonazepam 1 mg 07/14/25 12:30 07/14/25 19:47 Clonazepam 0.5 Mg Tablet PO 07/19/25 12:29 1 mg BID KRYSTAL Administration Dextrose 50 ml 07/13/25 22:33 Dextrose 50%-Water Inj 50 Ml Syringe IV 08/12/25 22:32 Q15MIN PRN BG <50 OR BG <70 & pt unresponsive Enoxaparin Sodium 40 mg 07/13/25 21:00 07/14/25 19:47 Enoxaparin Sod Inj 40 Mg/0.4 Ml Syringe SC 07/27/25 20:59 40 mg QPM KRYSTAL Administration Glucagon 1 mg 07/13/25 22:33 Glucagon Inj 1 Mg Vial IM Q15MIN PRN BG <70, and no IV access Ceftriaxone Sodium/Dextrose 1 gm in 50 mls @ 100 mls/hr 07/15/25 09:00 Rocephin/D5w 1gm Iv Premix IV 07/22/25 08:59 QDAY KRYSTAL Dexmedetomidine/Sodium Chloride 400 mcg in 100 mls @ 4.39 mls/hr 07/14/25 17:25 07/15/25 04:00 Precedex Ivpb IV 08/13/25 13:08 1.2 mcg/kg/hr .[id number] PRN 26.34 mls/hr Per PROTOCOL Titration Protocol 0.2 MCG/KG/HR Insulin Degludec 15 unit 07/15/25 09:00 Insulin Degludec 5 Unit/0.05 Ml (Per 5 Units) SC 08/14/25 08:59 QDAY KRYSTAL Insulin Human Lispro 5 unit 07/15/25 08:00 Insulin Lispro (Admelog) 1 Unit/0.01 Ml Unit SC 08/14/25 07:59 TIDWM KRYSTAL Insulin Human Lispro 0 unit 07/14/25 21:00 07/15/25 01:07 Insulin Lispro (Admelog) 1 Unit/0.01 Ml Unit SC 08/13/25 20:59 3 unit ACHS KRYSTAL Administration Protocol Lorazepam 2 mg 07/14/25 13:34 07/14/25 19:44 Lorazepam 2 Mg/Ml Vial IVP 07/19/25 13:33 2 mg Q6H PRN Administration ANXIETY Ondansetron HCl 4 mg 07/13/25 20:36 Ondansetron Inj 2 Mg/Ml Inj 2 Ml IVP 08/12/25 20:35 Q6H PRN NAUSEA OR VOMITING Protocol Plan This patient is a 45-year-old male with a past history of benzodiazepine abuse, chronic neuropathic pain, non insulin-dependent T2DM, TBI, DVT, depression, and anxiety who presented to [facility] ED on 07/13 due to altered mental status and was admitted to ICU for management of acute encephalopathy requiring intubation to protect airway. The patient was extubated on 07/14 and downgraded to medical floors on 07/15. NEURO #Acute encephalopathy 10/16 #Suspected benzodiazepine overdose #History of PTSD #History of benzodiazepine abuse #Agitation Patient was found on 07/13 by family after he was noted to be tired, went to bed, and then became unresponsive to his mother. EMS was called and found the patient unresponsive with a GCS of 7 and urinary continence. Pupils were found to be dilated bilaterally. Narcan and flumazenil was given in ED without improvement in response. On physical exam in the ED, patient was noted to have GCS of 8, so patient was sedated and intubated. Patient's fiance brought the patient's medications on 07/15 and it was noted that the patient recently had his clonazepam refilled on 07/05/2025 with 60 pills, but only 10 pills were noted in the bottle on 07/15/2025. Additionally, patient's fiance noted that the patient is an active alcohol drinker, but patient is noted to deny alcohol consumption. DDx: Polypharmacy Dx: UDS 07/13 positive for THC, negative for benzodiazepines Initial renal and liver functions within normal limits, ammonia less than 10 Lactic acid within normal limits on presentation CT cervical spine and CT head performed 07/13 negative for acute findings Rx: Librium 50 mg twice daily given patient's agitation, patient would likely benefit from long-acting benzodiazepine to prevent possible withdrawal Depakote to 250 mg twice daily given patient's agitation Patient was given Klonopin 1 mg, Ativan 2 mg x 2, phenobarbital 130 mg, Versed 2 mg, ziprasidone 10 mg, and Versed x 2 for agitation post extubation Precedex drip stopped 07/15 Neurology consulted, appreciate recommendations given unclear etiology of acute encephalopathy RRx: Patient may benefit from resumption of his home antipsychotic medications Benzodiazepine withdrawal was considered given negative UDS, but overall overdose more closely fits clinical picture CARDIO #No active problems PULM #Intubation for airway protection, GCS 8, s/p extubation 07/14 #Aspiration pneumonia versus community-acquired pneumonia Patient noted to have GCS of 7 upon evaluation by EMS with bilaterally dilated pupils. GCS not improved with Narcan nor flumazenil in the ED. Given GCS of 8 in ED, patient was intubated to protect his airways in ED. Patient successfully extubated on 07/14 without complication. Dx: CT chest/abdomen/pelvis showed bibasilar lung opacity with moderate vascular congestion, possibly suggestive of aspiration pneumonia On arrival, patient noted to have increased WBC of 12.4 Blood cultures collected 07/13 negative for growth after 24 hours Sputum cultures preliminary show 3+ gram-positive cocci, pending speciation Rx: Ceftriaxone 1 gm daily (07/13 - ) GI #No active problems NEPHRO #No active problems URO #No active problems HEME #Leukocytosis Dx: WBC 12.4 => 13.8 => 12.6, negative for fever, cough, and respiratory distress Rx: Continue to trend WBC, continue treatment for suspected underlying infection ENDO #Wlb-ilmqksq-zmqfqylra type 2 diabetes mellitus Patient has noted to have a history of NID T2DM per chart review. Patient reported to take metformin at home. Dx: Glucose on presentation to [facility] Hemoglobin A1c 9.4% 07/15 Rx: Fine scale insulin step 3 Insulin degludec 15 units daily Insulin lispro 5 units 3 times daily with meals Diet carbohydrate consistent low Bedside glucose checks ACHS RRx: Increase insulin degludec and lispro as needed depending on blood glucose in a.m. and fingerstick #Subclinical hypothyroid Dx: subclinical hypothyroid low TSH 0.40, normal free T4 Rx: Can follow up outpatient ID #Aspiration pneumonia vs community acquired pneumonia Patient noted to possibly have aspiration pneumonia versus community-acquired pneumonia given leukocytosis and findings on CT chest/abdomen/pelvis Dx: CT chest/abdomen/pelvis showed bibasilar lung opacity with moderate vascular congestion, possibly suggestive of aspiration pneumonia On arrival, patient noted to have increased WBC of 12.4 Blood cultures collected 07/13 negative for growth after 24 hours Sputum cultures preliminary show 3+ gram-positive cocci, pending speciation Rx: Ceftriaxone 1 gm daily (07/13 - ) MSK #Chronic osteoporotic compressions T9, T8, T7, T6, T5 Dx CT showed Chronic osteoporotic compressions T9, T8, T7, T6, T5 Rx He takes baclofen, ibuprofen, and cyclobenzaprine Outpatient follow up SKIN #No active problems DVT prophylaxis: Enoxaparin GI prophylaxis: Famotidine Diet: Carbohydrate consistent low Thomas: Present Lines: Peripheral IV, Central IV Antibiotics: Ceftriaxone CODE STATUS: FULL Vent Status: N/A Reason for ICU care: N/A Patient plan of care was discussed with the attending truck crane operator helper, Dr. Banks and senior resident Dr. Shelton (PGY-2). Parish Linares, PGY-1 Attending Provider Attestation/Addendum Patient seen and examined with above resident, Parish Linares, DO. I agree with the findings, assessment, and plan of care as documented except for any differences below. Patient successfully weaned from mechanical ventilation yesterday. He remains significantly agitated this morning though sister and mother are at bedside. They both of reiterated to the patient that he cannot leave to go to their homes without clearance from medical providers. Patient with underlying psychiatric illness likely with unintentional overdose of benzodiazepines and alcohol. Patient counseled on the importance of discontinuation of these agents and receiving appropriate therapy for his underlying claim of PTSD. Patient was started on a mood stabilizer and we will minimize use of benzodiazepines with plan for Librium taper to ensure avoidance of any withdrawal. Patient ultimately was agreeable to staying in the hospital despite multiple threats to leave AGAINST MEDICAL ADVICE. Patient otherwise remained stable on room air and we will decannulate with plan for transition to medicine silva for ongoing management until discharge in coming days. Complete course of antibiotics for aspiration versus community-acquired pneumonia. Total critical care time: Personally spent 45 minutes for review of physiologic parameters, directing plan of care throughout the day, coordination of care with other specialists, and counseling the patient and his family extensively at bedside. This is exclusive of time spent teaching on staff or performing any separate billable procedures. Patient remains at significant risk for further morbidity and mortality warranting close monitoring care only available in the ICU. Critical care services required for benzodiazepine/alcohol overdose, acute encephalopathy, acute respiratory failure, aspiration pneumonia.
[2025-07-15] MEDS: INSULIN DEGLUDEC 5 UNIT/0.05 ML (PER 5 UNITS) 15 UNIT SC (08:29)
[2025-07-15] MEDS: INSULIN LISPRO (AdmeLOG) 1 UNIT/0.01 ML UNIT 5 UNIT SC ×2 (08:30→11:51)
[2025-07-15] MEDS: cefTRIAXone/D5w 1gm IV premix 1 GM/50 ML BAG IV (08:31)
[2025-07-15] MEDS: VALPROIC ACID SYRUP 250 MG/5 ML UDC PO ×2 (11:28→21:43)
[2025-07-15] MEDS: HYDROcodone/APAP 7.5/325 TABLET 1 TAB PO ×2 (16:08→22:05)
--- NOTE | 2025-07-15 16:09 | PC.NURSE ---
Pt keeps taking leads of chest. Pt uncooperative. Redirected multiple times. Notifed Dr. Amin. Freddieasure in room. Will continue to monitor
--- NOTE | 2025-07-15 16:18 | PC.NURSE ---
John Gan called, pt. attempting to walk out after SW informed he is being put on a 5150 hold. Pt. yelling at everyone and being aggressive toward all staff and visitors, security at bedside for 1:1 SI sitter.
[2025-07-15] MEDS: ZIPRASIDONE INJ 20 MG/ML VIAL (NON-FORMULARY) 10 MG IM (16:34)
--- NOTE | 2025-07-15 16:45 | ESPR_ITS ---
<Statement entered by Albert Amin MD - 07/15/25 17:45> Patient was seen and examined at bedside. I agree on the assessment and plan on this note as documented by resident [place] DO PGY1. 45-year-old male with past medical history of chronic neuropathic pain, type II ang-zzyuqle-hgjnxsayb diabetes mellitus, traumatic brain injury, PTSD, depression, anxiety and underlying psychiatric issues who was admitted to [facility] intensive care unit on 07/13/2025 secondary to postintubation for airway protection with suspected benzodiazepine overdose, patient was successfully extubated on 07/14 and downgraded to med/tele today. Patient is alert and oriented x 3, agitated insisting that he wants to get discharged, patient's Precedex drip was discontinued this morning, he received Klonopin and Librium earlier this morning. Will discontinue Klonopin, patient is medically clear pending crisis evaluation as patient reportedly was seen in the emergency department in February earlier this year for suicidal ideation. Will continue to monitor otherwise for any signs of benzodiazepine withdrawal, will continue Librium 50mg BID, Valproic Acid 250mg BID, insulin for diabetes management and norco for pain management. Patient was seen and assessed by crisis evaluation decision made to transfer patient for psych evaluation by a psychiatrist, patient very agitated after talking to crisis evaluation worker, explained to patient benefits of evaluation by a psychiatrist, patient combative and grabbed his mother forcefully, bettie villeda was called. Will initiate behavioral restraints, given ziprasidone 10 mg IM x 1 and Benadryl 25 mg IM x 1. Pending psych placement. Case discussed with attending Dr. Pako Amin MD PGY-2 Documentation for date of: 07/15/25 Subjective Subjective Interval history: Patient was seen and examined at bedside accompanied by fiance and mother at different time points. Patient is downgraded to medical floors given continued stability after Precedex drip was discontinued this morning and tolerating extubation without complication. Patient required Versed x2 overnight for excessive agitation. Patient continues to be very agitated, frequently requesting to leave the hospital. Patient states that he was prescribed clonazepam for PTSD. Additionally patient reports taking paroxitine, olanzepine, and quetiapine. When questioned about potential overdose, the patient denied and stated that he has taken one pill of clonazepam only. It was noted that the patient only had 10 pills of his clonazepam remaining although the bottle was recently prescribed on 07/05/2025 and initially had 60 pills at that time. Given the patient's agitation, the patient was started on chlordiazepoxide 50 mg twice daily and Depakote 250 mg twice daily. Crises evaluation saw the patient who found him to be unsafe and in marked cognitive impairment, enforcing 5150 hold and follow-up evaluation at a psychiatric hospital. Patient was resistant, and combative to medical staff and family members at bedside. Code Villeda was activated. Given 10mg of Ziprasidone and Benedryl 25mg for sedation. Exam Vital Signs Temp Pulse Resp BP Pulse Ox O2 Del Method O2 Flow Rate 98.8 F 97 16 109/78 78 L Room Air 3 07/15/25 12:02 07/15/25 12:35 07/15/25 12:35 07/15/25 12:02 07/15/25 12:40 07/15/25 12:02 07/15/25 08:00 FiO2 30 07/14/25 10:41 Narrative Exam Physical Exam: General: Alert, and agitated. Skin: Warm, dry, intact. Head: Normocephalic, atraumatic. Eye: Normal conjunctiva, PERRL. Cardiovascular: Regular rate and rhythm, no murmur, +S1/S2. Respiratory: Lungs are clear to auscultation, respirations unlabored, no crackles, no wheezing. Gastrointestinal: Soft, nontender, non-distended. No guarding or rebound tenderness. Extremities: No edema, no cyanosis, no clubbing. 2+ radial pulse bilaterally, 2+ pedal pulse bilaterally. Neuro: No focal deficits observed. Conversant, moving all extremities. No overt cerebellar signs/incoordination. Objective Labs 07/16/25 04:45 07/16/25 04:45 Labs: Laboratory Results - last 24 hr 07/15/25 04:07 WBC 12.6 H RBC 4.08 L Hgb 12.7 L Hct 38.1 L MCV 93 MCH 31.1 MCHC 33.3 RDW Std Deviation 44.6 H Plt Count 170 D Neut % (Auto) 78 Lymph % (Auto) 14 [place] % (Auto) 6 Eos % (Auto) 1 Baso % (Auto) 0 Neut # (Auto) 9.8 H Lymph # (Auto) 1.8 [place] # (Auto) 0.8 Eos # (Auto) 0.1 Baso # (Auto) 0.0 Immature Gran # (Auto) 0.05 H Absolute Nucleated RBC 0.00 Immature Gran % 0 Nucleated RBC % 0 Sodium 142 Potassium 3.6 Chloride 104 Carbon Dioxide 28.4 Anion Gap 10 BUN 17 Creatinine 0.9 Estim Creat Clear Calc 114.0 eGFR > 60 BUN/Creatinine Ratio 19 [address]ucose [address] Glu mg/dL 223 H Hemoglobin A1c 9.4 H Calculated Osmolality 289 Calcium 9.1 Corrected Calcium 9.1 Phosphorus 3.6 Magnesium 2.2 Total Bilirubin 1.4 H AST 27 ALT 46 Alkaline Phosphatase 87 D Total Protein 6.1 Albumin 4.3 Globulin 1.8 L Albumin/Globulin Ratio 2.4 H ABG Interpretation ABG results: 07/13/25 07/14/25 17:14 04:18 ABG pH 7.33 L 7.57 H D ABG pCO2 38 30 L ABG pO2 534 H 83 D ABG HCO3 20 27 H ABG O2 Saturation 99 H 97 ABG Base Excess -6 L 6 H Quality Measures Quality Measures VTE prophylaxis Assessment & Plan Assessment Current Active Medications: Generic Name Dose Route Start Last Admin Trade Name Freq PRN Reason Stop Dose Admin Hydrocodone Bitart/Acetaminophen 1 tab 07/14/25 12:27 07/15/25 16:08 Hydrocodone/Apap 7.5/325 Tablet PO 07/19/25 12:26 1 tab Q6HR PRN Administration PAIN Chlordiazepoxide HCl 50 mg 07/15/25 11:00 07/15/25 11:28 Chlordiazepoxide Hcl 25 Mg Capsule PO 07/20/25 10:59 50 mg BID KRYSTAL Administration Dextrose 50 ml 07/13/25 22:33 Dextrose 50%-Water Inj 50 Ml Syringe IV 08/12/25 22:32 Q15MIN PRN BG <50 OR BG <70 & pt unresponsive Enoxaparin Sodium 40 mg 07/13/25 21:00 07/14/25 19:47 Enoxaparin Sod Inj 40 Mg/0.4 Ml Syringe SC 07/27/25 20:59 40 mg QPM KRYSTAL Administration Glucagon 1 mg 07/13/25 22:33 Glucagon Inj 1 Mg Vial IM Q15MIN PRN BG <70, and no IV access Insulin Degludec 15 unit 07/15/25 09:00 07/15/25 08:29 Insulin Degludec 5 Unit/0.05 Ml (Per 5 Units) SC 08/14/25 08:59 15 unit QDAY KRYSTAL Administration Insulin Human Lispro 5 unit 07/15/25 08:00 07/15/25 11:51 Insulin Lispro (Admelog) 1 Unit/0.01 Ml Unit SC 08/14/25 07:59 5 unit TIDWM KRYSTAL Administration Insulin Human Lispro 0 unit 07/14/25 21:00 07/15/25 11:51 Insulin Lispro (Admelog) 1 Unit/0.01 Ml Unit SC 08/13/25 20:59 3 unit ACHS KRYSTAL Administration Protocol Ondansetron HCl 4 mg 07/13/25 20:36 Ondansetron Inj 2 Mg/Ml Inj 2 Ml IVP 08/12/25 20:35 Q6H PRN NAUSEA OR VOMITING Protocol Valproic Acid 250 mg 07/15/25 11:00 07/15/25 11:28 Valproic Acid Syrup 250 Mg/5 Ml Udc PO 08/14/25 10:59 250 mg BID KRYSTAL Administration Plan This patient is a 45-year-old male with a past history of benzodiazepine abuse, chronic neuropathic pain, non insulin-dependent T2DM, TBI, DVT, depression, and anxiety who presented to [facility] ED on 07/13 due to altered mental status and was admitted to ICU for management of acute encephalopathy requiring intubation to protect airway. The patient was extubated on 07/14 and downgraded to medical floors on 07/15. #Acute encephalopathy 2/2 #Suspected benzodiazepine overdose #History of PTSD #History of benzodiazepine abuse #Agitation #Intubation for airway protection, GCS 8, s/p extubation 07/14 Ddx: Polypharmacy Patient was found on 07/13 by family after he was noted to be tired, went to bed, and then became unresponsive to his mother. EMS was called and found the patient unresponsive with a GCS of 7 and urinary continence. Pupils were found to be dilated bilaterally. Narcan and flumazenil was given in ED without improvement in response. On physical exam in the ED, patient was noted to have GCS of 8, so patient was sedated and intubated. Patient's fiance brought the patient's medications on 07/15 and it was noted that the patient recently had his clonazepam refilled on 07/05/2025 with 60 pills, but only 10 pills were noted in the bottle on 07/15/2025. Additionally, patient's fiance noted that the patient is an active alcohol drinker, but patient is noted to deny alcohol consumption. Patient successfully extubated on 07/14 without complication. Patient was given Klonopin 1 mg, Ativan 2 mg x 2, phenobarbital 130 mg, Versed 2 mg, ziprasidone 10 mg, and Versed x 2 for agitation post extubation UDS 07/13 positive for THC, negative for benzodiazepines Initial renal and liver functions within normal limits, ammonia less than 10 Lactic acid within normal limits on presentation CT cervical spine and CT head performed 07/13 negative for acute findings Plan: Librium 50 mg twice daily given patient's agitation, patient would likely benefit from long-acting benzodiazepine to prevent possible withdrawal Depakote to 250 mg twice daily given patient's agitation Ziprasidone IM 10mg, upgrade to ICU if persistently agitated after two such doses. Neurology consulted, appreciate recommendations given unclear etiology of acute encephalopathy #Aspiration pneumonia vs community acquired pneumonia #Leukocytosis Patient noted to possibly have aspiration pneumonia versus community-acquired pneumonia given leukocytosis and findings on CT chest/abdomen/pelvis CT chest/abdomen/pelvis showed bibasilar lung opacity with moderate vascular congestion, possibly suggestive of aspiration pneumonia On arrival, patient noted to have increased WBC of 12.4 Blood cultures collected 07/13 negative for growth after 24 hours Sputum cultures preliminary show 3+ gram-positive cocci, pending speciation WBC 12.4 => 13.8 => 12.6, negative for fever, cough, and respiratory distress Plan: Recieved Ceftriaxone 1 gm x1 Continue to trend WBC Monitor respiratory status, currently stable on room air #Dsu-koliybu-tqcvhmvzo type 2 diabetes mellitus Patient has noted to have a history of NID T2DM per chart review. Patient reported to take metformin at home. Glucose on presentation to 297 Hemoglobin A1c 9.4% 07/15 Plan: Sliding scale insulin step 3 Insulin degludec 15 units daily Insulin lispro 5 units 3 times daily with meals Diet carbohydrate consistent low Bedside glucose checks ACHS Increase insulin degludec and lispro as needed depending on blood glucose in a.m. and fingerstick #Subclinical hypothyroid subclinical hypothyroid low TSH 0.40, normal free T4 -Can follow up outpatient #Chronic osteoporotic compressions T9, T8, T7, T6, T5 CT showed Chronic osteoporotic compressions T9, T8, T7, T6, T5 He takes baclofen, ibuprofen, and cyclobenzaprine -Outpatient follow up Health Maintenance: Disposition: Med Surg, monitoring for signs of benzodiazipne withdrawal, pending evaluation at a psychiatric hospital. DVT prophylaxis: Enoxaparin GI prophylaxis: Famotidine Diet: Carbohydrate consistent low CODE STATUS: FULL This case was discussed with my attending physician, Dr. Robertson, and senior resident, Dr. Amin. [place], DO PGY I Attending Provider Attestation/Addendum I have examined the patient, reviewed labs and imaging findings, discussed the case with the resident(s), and reviewed entered orders. I agree with the plan of care as outlined in this note, with these additional summaries/recommendations: Patient seen at bedside. Patient downgraded from ICU and hospitalist team to resume care. Patient was admitted to the ICU for acute encephalopathy and inability to protect airway requiring intubation and mechanical ventilation. Etiology for acute encephalopathy suspected to be secondary to benzodiazepine abuse/overdose versus polypharmacy. Patient denies wanting to hurt himself or others. Documentation shows patient may have taken more clonazepam than recommended on prescription bottle. There is also documentation on 03/07/2025 the patient presented to the ER with overdose and at that time patient reported taking a significant amount of the benzodiazepines and suicidal ideation. Given this history and concern of overdose, I would like patient to be evaluated by crisis team before he can be safely discharged. We will continue Librium for now to prevent benzodiazepine withdrawal. Patient was suspected of having aspiration pneumonia although antibiotics were discontinued. Patient's O2 saturation appropriate on room air. Continue insulin sliding scale for diabetes mellitus type 2 with Accu-Cheks. A1c 9.4%. Will follow-up with crisis team for additional recommendations. Please see residents note for additional details and management. Dr. Marcelo MD
--- NOTE | 2025-07-15 16:59 | PC.SS ---
Clay received a phone call from Dr. Robertson who requested a mental health evaluation for patient due to suffering from an overdose. Per Dr. Robertson, patient was admitted to the ICU on 07/13/2025 for altered mental status. However, Dr. Robertson reported that E Resident Dr. Linares did a medication reconciliation and discovered that patient's clonazepam was filled on 07/05/2025, for a total quantity of 60 pills, when he counted the pills, patient only had 10 pills left. Therefore, it was suggested that patient had suffered on an overdose on clonazepam. Clay met with patient [id number] to complete mental health evaluation. PIECE HAND introduced herself, role in the agency, reason for visit, and discussed limits of confidentiality. Patient requested to have his mother, Junie Rogel ([phone]) present during evaluation. Patient appeared alert and oriented to self, place and situation. Patient was guarded and minimal with his answers. Patient's mood was anxious and behavior was agitated with flat affect. Patient appeared disheveled and malodorous. PIECE HAND requested to know the reason for admission. Patient was only able to report that he took a pill, and came to the ED. Junie reported that on , 07/12/2025, patient was acting weird. [facility] asked for Junie to provide more details. Junie reported that patient appeared drowsy and kept falling around the house. However, patient requested to be reminded of his train ride for 07/13/2025 at 06:30 AM to [place]. Junie reported that patient slept with his feet hanging off the bed, and she attempted several times to wake-up throughout the day with no success. It was not until 1529 that [facility] sent a deputy to patient's house to do a welfare check at the request of his fianceIndu. Junie informed [facility] deputies that she had called to send an ambulance due to patient being unarousable. Patient reported that he had only taken one clonazepam pill. PIECE HAND challenged patient's cognition and requested to know what had happened to his clonazepam medication since 50 pills were missing from the bottle. Patient became upset and agitated and reported that the pills were dropped in his room. Patient reported that he would never attempt to kill himself and denied any previous suicide attempts. Patient denied any HI, A/h or V/h. Patient informed that PIECE HAND reviewed his EMR and noticed that he had another overdose admission to the ED on 03/07/2025 in which it was stated that he had taken a total of 15 pills of diazepam and norco. However, at that time, patient was allowed to AMA by Dr. Jalloh. Patient declined to provide any explanation for that admission. Patient reported that he suffers from PTSD (from the , not connected to the [facility]) and depression. Patient reported that the last time he felt depressed was in August of 2024 after breaking up with his ex-girlfriend. Patient reported that his PCP-Dr. Pruitt is prescribing all his psychotropic medications: klonopin, paroxetine, quetiapine, and cyclobenzaprine. Patient reported that he is pending a referral to see a psychiatrist at [facility] in [place]. Patient denied any outpatient mental health services at this time. PIECE HAND consulted with PIECE HAND-Yue Metz; it was determined that patient is a danger to himself with poor insight and judgment to his mental health condition and impulsive behavior of overdosing on clonazepam. PIECE HAND notified patient and his mother, Junie that patient will be placed on a 5150 hold for danger to self as of 07/15/2025 at 1606. PIECE HAND also notified patient that if attempted to elope, a code green would be called and staff would be instructed to call [place] [employer] for patient to be brought to the ED for a MHE.
[2025-07-15] MEDS: BENZONATATE 100 MG CAPSULE PO (23:15)
--- NOTE | 2025-07-15 23:42 | PD.NEUROPROG ---
Documentation for date of: 07/15/25 Subjective Subjective Interval history: He was seen in [facility] at bedside. No symptoms or complaints reported. Patient is back to his baseline Exam - Neurology Vital Signs Temp Pulse Resp BP Pulse Ox O2 Del Method O2 Flow Rate 98.8 F 97 16 109/78 78 L Room Air 3 07/15/25 12:02 07/15/25 12:35 07/15/25 12:35 07/15/25 12:02 07/15/25 12:40 07/15/25 12:02 07/15/25 08:00 FiO2 30 07/14/25 10:41 Narrative Exam GENERAL APPEARANCE: Well hydrated, well-nourished in no acute distress. HEENT: Normocephalic, atraumatic, extraocular movements intact. Pupils: Equal reacting to light and accommodation NECK: Supple, no JVD or bruits. CARDIOVASULAR: Heart: S1, S2 heard, regular without S3-S4 or murmur no rubs or gallops. LUNGS/CHEST: Clear to auscultation bilaterally. No rails, rhonchi, or wheezing. Normal inspection. ABDOMEN: Soft, nontender, with normal bowel sounds. No pulsatile masses. No rebound, rigidity, or guarding. Normal inspection and palpation. EXTREMITIES: Normal inspection and palpation. No edema, clubbing or cyanosis. SKIN: Warm and dry without rashes. Normal inspection. MUSCULOSKELETAL: No cervical, thoracic, lumbar or midline bony tenderness. Normal inspection. NEURO: Alert, awake and oriented x3. Cranial nerves: II through XII grossly intact. Speech and language: Normal with no dysarthria or dysphasia. Motor system: Tone and bulk: Normal: Strength: 5 out of 5 in all 4 extremities; No pronator drift noted. Deep tendon reflexes: 2+ bilaterally symmetrical. Plantar reflex: Downgoing bilaterally. Sensory system: Intact to all modalities of sensation bilaterally. Coordination: Intact to xpawyi-[id number] and nmxx-mfap-seke test bilaterally. No ataxia, no dysmetria, or dysdiadochokinesia noted. No intention tremors noted. Gait: Not tested. No signs of meningeal irritation noted. PSYCHIATRIC: Normal mood and affect. Denies homicidal or suicidal ideation. Objective Labs 07/15/25 04:07 07/15/25 04:07 Labs: Laboratory Results - last 24 hr 07/15/25 04:07 WBC 12.6 H RBC 4.08 L Hgb 12.7 L Hct 38.1 L MCV 93 MCH 31.1 MCHC 33.3 RDW Std Deviation 44.6 H Plt Count 170 D Neut % (Auto) 78 Lymph % (Auto) 14 [place] % (Auto) 6 Eos % (Auto) 1 Baso % (Auto) 0 Neut # (Auto) 9.8 H Lymph # (Auto) 1.8 [place] # (Auto) 0.8 Eos # (Auto) 0.1 Baso # (Auto) 0.0 Immature Gran # (Auto) 0.05 H Absolute Nucleated RBC 0.00 Immature Gran % 0 Nucleated RBC % 0 Sodium 142 Potassium 3.6 Chloride 104 Carbon Dioxide 28.4 Anion Gap 10 BUN 17 Creatinine 0.9 Estim Creat Clear Calc 114.0 eGFR > 60 BUN/Creatinine Ratio 19 [address]ucose [address] Glu mg/dL 223 H Hemoglobin A1c 9.4 H Calculated Osmolality 289 Calcium 9.1 Corrected Calcium 9.1 Phosphorus 3.6 Magnesium 2.2 Total Bilirubin 1.4 H AST 27 ALT 46 Alkaline Phosphatase 87 D Total Protein 6.1 Albumin 4.3 Globulin 1.8 L Albumin/Globulin Ratio 2.4 H ABG Interpretation ABG results: 07/13/25 07/14/25 17:14 04:18 ABG pH 7.33 L 7.57 H D ABG pCO2 38 30 L ABG pO2 534 H 83 D ABG HCO3 20 27 H ABG O2 Saturation 99 H 97 ABG Base Excess -6 L 6 H Assessment & Plan Assessment and plan (1) AMS (altered mental status): Status: Acute Assessment and plan: Resolving and is back to baseline. Continue to monitor him closely (2) Pneumonia: Status: Acute Assessment and plan: On antibiotics (3) Sepsis: Status: Acute Assessment and plan: Treated with IV fluids and antibiotic (4) Depression: Status: Chronic
[2025-07-16] VITALS: BP 119/79; PULSE 67; RESP 10; TEMP 36.9; O2SAT 93
[2025-07-16] MEDS: ACETAMINOPHEN 325 MG TABLET 650 MG PO (01:47)
--- NOTE | 2025-07-16 03:15 | PC.NURSE ---
Patient has not shown any aggressive behavior since the wrist restraints has been removed. Patient resting quietly in bed. Will continue to monitor. Security at bedside 5150 hold.
[2025-07-16 04:00] VITALS: BP 132/87; PULSE 94; RESP 18; TEMP 36.3; O2SAT 96
[2025-07-16] MEDS: HYDROcodone/APAP 7.5/325 TABLET 1 TAB PO (05:17)
[2025-07-16 05:54] LABS: Basophils # (Auto) 0.0 Thou/mm3 (0.0-0.2); Basophils % (Auto) 0 % (0-2.5); Eosinophils # (Auto) 0.2 Thou/mm3 (0.0-0.5); Eosinophils % (Auto) 2 % (0-10); Hematocrit 37.2 % (41.0-53.0); Hemoglobin 12.6 g/dL (13.5-16.0); Immature Granulocytes Auto 0.03 Thou/mm3 (0.00-0.00); Lymphocytes # (Auto) 1.1 Thou/mm3 (1.0-4.8); Lymphocytes % (Auto) 16 % (10-50); Mean Corpuscular HGB Conc 33.9 g/dl (31.0-37.0); Mean Corpuscular Hemoglobin 31.0 pg (25.0-35.0); Mean Corpuscular Volume 91 fL (80-100); Monocytes # (Auto) 0.5 Thou/mm3 (0.0-0.8); Monocytes % (Auto) 7 % (0-12); Neutrophils # (Auto) 5.2 Thou/mm3 (1.8-7.7); Neutrophils % (Auto) 74 % (37-80); Nucleated Red Blood Cell # 0.00 Thou/mm3 (0.00-0.00); Nucleated Red Blood Cell % 0 /100 WBC (0); Platelet Count 162 Thou/mm3 (140-440); RDW Standard Deviation 44.1 fL (35.1-43.9); Red Blood Count 4.07 Miln/mm3 (4.50-5.90); White Blood Count 7.0 Thou/mm3 (3.8-10.6)
[2025-07-16 06:00] VITALS: BMI 29.3
[2025-07-16 06:14] LABS: Alanine Aminotransferase 43 U/L (10-49); Albumin, Serum 4.3 gm/dL (3.5-5.0); Albumin/Globulin Ratio 2.4 (1.2-2.2); Alkaline Phosphatase 85 U/L (46-116); Anion Gap 10 (7-16); Aspartate Amino Transferase 43 U/L (0-34); BUN/Creatinine Ratio 20 Ratio (12-20); Bilirubin,Total 0.9 mg/dL (0.3-1.2); Blood Urea Nitrogen 16 mg/dL (9-23); Calcium 9.3 mg/dL (8.3-10.6); Calcium (Corrected) 9.3 mg/dL (8.5-10.1); Carbon Dioxide 28.2 mMol/L (20.0-31.0); Chloride 102 mMol/L (98-107); Creatinine (Component) 0.8 mg/dL (0.6-1.3); Estimated Creatinine Clearance 128.3 mL/min (>60); Globulin 1.8 gm/dL (2.3-3.5); Glucose 106 mg/dL (74-106); Magnesium 2.1 mg/dL (1.6-2.6); Osmolality,Calculated 280 (275-295); Phosphorous 4.3 mg/dL (2.4-5.1); Potassium 3.3 mMol/L (3.4-5.1); Sodium 140 mMol/L (136-145); Total Protein 6.1 gm/dL (5.7-8.2); eGFR > 60 See Note
[2025-07-16] MEDS: INSULIN LISPRO (AdmeLOG) 1 UNIT/0.01 ML UNIT 5 UNIT SC (07:50)
[2025-07-16 08:00] VITALS: BP 143/97; PULSE 116; RESP 19; TEMP 36.9; O2SAT 97
--- NOTE | 2025-07-16 09:26 | PC.SS ---
Addendum entered by UYEN Santos 07/16/25 15:15: ASSOCIATE MATERIAL HANDLER placed phone call to the following facilities to inquire if they can accept patient: [facility]- Not available, left [facility]- no male beds [facility]- no male beds [facility] no male beds [facility] stated that they are at max capacity, However, they may have bed available tomorrow and they will review referral tomorrow. [facility]- no male beds [facility]- ASSOCIATE MATERIAL HANDLER spoke to Celsa at [facility] and stated that they do not accept referrals via ensocare or fax only through phone calls will they submit a review then will request clincials afterwards. ASSOCIATE MATERIAL HANDLER provided verbal call back number if there are beds available tomorrow. Celsa will reach out if they can accept patient. Addendum entered by UYEN Santos 07/16/25 13:13: [facility] Admission staff stated that they would relay information to doctor and will call back if they are able to accept patient, however they stated that the latest they can take patient is 21:00. ASSOCIATE MATERIAL HANDLER contacted [facility] to inquire if they are able to accept patient, intake staff stated that they will review file and call if they are able to accept patient, ASSOCIATE MATERIAL HANDLER provided contact number. ASSOCIATE MATERIAL HANDLER called the following hospitals and all stated that they are at max capacity: [facility] Addendum entered by UYEN Santos 07/16/25 12:44: DONNA Castro placed phone call to [facility] to inquire if they are able to accept patient, [facility] Staff requested patient home meds, ASW transferred phone call to bedside nurse Geri to provide home medication list. Addendum entered by Beth Tinoco 07/16/25 10:25: Psychiatric Placement packet submitted via George to the following facilities: [facility], [facility] 18+ [facility] Original Note: Patient requested to speak to SS. Machine Grainer connected with patient at bedside; role and purpose of today?s contact was explained to patient and his mother Junie Antunez. Patient was calm and willing to engage with this communications writer. Patient requested an update on his discharge date. Patient further explained he does not have current suicidal ideations, plan, method, or intent to end life. Patient?s responses were disorganized and incoherent. ?Patient reported he is connected with a psychiatrist, but further explained he had a referral pending in September 2025 with a psychiatrist. 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 and is going to be in 2 weeks; therefore, he has a will to live. Patient stated he needed to discharge home to care for his elderly mother Junie. Patient?s mother Junie reiterated her need to have patient discharge home to care for her. Machine Grainer validated patient?s and his mother?s concerns. Machine Grainer informed patient he would be informed if any updates are provided. Machine Grainer informed GME Resident Dr. Amin patient was calm and willing to engage with this communications writer.? Patient was not physically aggressive towards this communications writer during encounter. Security was informed additional support was not needed during encounter with this patient at this time. Security proceeded to remain seated outside of the patient?s room door for as needed support for this communications writer.
--- NOTE | 2025-07-16 09:27 | ESPR_ITS ---
Documentation for date of: 07/16/25 Subjective Subjective Interval history: Patient seen examined at bedside, restraints were discontinued overnight, complained of cough was given Benadryl and Tessalon. Was downgraded from intensive care unit yesterday to medical floors, suspicion of benzodiazepine overdose. Patient is calm alert and oriented x 4, has not needed chemical or physical restraints since yesterday. Denies any suicidal ideation, pending placement to psychiatric facility per crisis evaluation team. Exam Vital Signs Temp Pulse Resp BP Pulse Ox O2 Del Method O2 Flow Rate 98.4 F 116 H 19 143/97 H 97 Room Air 3 07/16/25 08:00 07/16/25 08:00 07/16/25 08:00 07/16/25 08:00 07/16/25 08:00 07/16/25 08:00 07/15/25 08:00 FiO2 30 07/14/25 10:41 Narrative Exam Physical Exam General: Awake and in no acute distress. Conversational and non-toxic appearing. HEENT: Normocephalic, atraumatic, mucous membranes moist. Heart: Regular rate and rhythm, no murmurs. Lungs: Clear to auscultation with no wheezing or crackles. Abdomen: Soft, nondistended, nontender, positive bowel sounds. ?No guarding or rebound tenderness. Neurologic: Alert and oriented x3, no gross neurological deficit, and patient able to move all 4 extremities. Extremities: No edema. Skin: No rash or ecchymoses. Objective Labs 07/16/25 04:45 07/16/25 04:45 Labs: Laboratory Results - last 24 hr 07/16/25 04:45 WBC 7.0 D RBC 4.07 L Hgb 12.6 L Hct 37.2 L MCV 91 MCH 31.0 MCHC 33.9 RDW Std Deviation 44.1 H Plt Count 162 Neut % (Auto) 74 Lymph % (Auto) 16 [place] % (Auto) 7 Eos % (Auto) 2 Baso % (Auto) 0 Neut # (Auto) 5.2 Lymph # (Auto) 1.1 [place] # (Auto) 0.5 Eos # (Auto) 0.2 Baso # (Auto) 0.0 Immature Gran # (Auto) 0.03 H Absolute Nucleated RBC 0.00 Immature Gran % 0 Nucleated RBC % 0 Sodium 140 Potassium 3.3 L Chloride 102 Carbon Dioxide 28.2 Anion Gap 10 BUN 16 Creatinine 0.8 Estim Creat Clear Calc 128.3 eGFR > 60 BUN/Creatinine Ratio 20 Glucose 106 D Calculated Osmolality 280 Calcium 9.3 Corrected Calcium 9.3 Phosphorus 4.3 Magnesium 2.1 Total Bilirubin 0.9 D AST 43 H ALT 43 Alkaline Phosphatase 85 Total Protein 6.1 Albumin 4.3 Globulin 1.8 L Albumin/Globulin Ratio 2.4 H ABG Interpretation ABG results: 07/13/25 07/14/25 17:14 04:18 ABG pH 7.33 L 7.57 H D ABG pCO2 38 30 L ABG pO2 534 H 83 D ABG HCO3 20 27 H ABG O2 Saturation 99 H 97 ABG Base Excess -6 L 6 H Quality Measures Quality Measures VTE prophylaxis Assessment & Plan Assessment Current Active Medications: Generic Name Dose Route Start Last Admin Trade Name Freq PRN Reason Stop Dose Admin Hydrocodone Bitart/Acetaminophen 1 tab 07/14/25 12:27 07/16/25 05:17 Hydrocodone/Apap 7.5/325 Tablet PO 07/19/25 12:26 1 tab Q6HR PRN Administration PAIN Benzonatate 100 mg 07/15/25 22:49 07/15/25 23:15 Benzonatate 100 Mg Capsule PO 08/14/25 22:48 100 mg Q8HR PRN Administration COUGH Protocol Chlordiazepoxide HCl 50 mg 07/15/25 11:00 07/15/25 21:43 Chlordiazepoxide Hcl 25 Mg Capsule PO 07/20/25 10:59 50 mg BID KRYSTAL Administration Dextrose 50 ml 07/13/25 22:33 Dextrose 50%-Water Inj 50 Ml Syringe IV 08/12/25 22:32 Q15MIN PRN BG <50 OR BG <70 & pt unresponsive Enoxaparin Sodium 40 mg 07/13/25 21:00 07/15/25 21:45 Enoxaparin Sod Inj 40 Mg/0.4 Ml Syringe SC 07/27/25 20:59 Not Given QPM KRYSTAL Glucagon 1 mg 07/13/25 22:33 Glucagon Inj 1 Mg Vial IM Q15MIN PRN BG <70, and no IV access Insulin Degludec 15 unit 07/15/25 09:00 07/15/25 08:29 Insulin Degludec 5 Unit/0.05 Ml (Per 5 Units) SC 08/14/25 08:59 15 unit QDAY KRYSTAL Administration Insulin Human Lispro 5 unit 07/15/25 08:00 07/16/25 07:50 Insulin Lispro (Admelog) 1 Unit/0.01 Ml Unit SC 08/14/25 07:59 5 unit TIDWM KRYSTAL Administration Insulin Human Lispro 0 unit 07/14/25 21:00 07/16/25 07:53 Insulin Lispro (Admelog) 1 Unit/0.01 Ml Unit SC 08/13/25 20:59 Not Given ACHS KRYSTAL Protocol Ondansetron HCl 4 mg 07/13/25 20:36 Ondansetron Inj 2 Mg/Ml Inj 2 Ml IVP 08/12/25 20:35 Q6H PRN NAUSEA OR VOMITING Protocol Valproic Acid 250 mg 07/15/25 11:00 07/15/25 21:43 Valproic Acid Syrup 250 Mg/5 Ml Udc PO 08/14/25 10:59 250 mg BID KRYSTAL Administration Plan This patient is a 45-year-old male with a past history of benzodiazepine abuse, chronic neuropathic pain, non insulin-dependent T2DM, TBI, DVT, depression, and anxiety who presented to [facility] ED on 07/13 due to altered mental status and was admitted to ICU for management of acute encephalopathy requiring intubation to protect airway. The patient was extubated on 07/14 and downgraded to medical floors on 07/15. #Acute encephalopathy, resolved 2/ #Suspected benzodiazepine overdose #History of PTSD #History of benzodiazepine abuse #Agitation, resolved #Intubation for airway protection, GCS 8, s/p extubation 07/14 Ddx: Polypharmacy Patient was found on 07/13 by family after he was noted to be tired, went to bed, and then became unresponsive to his mother. EMS was called and found the patient unresponsive with a GCS of 7 and urinary continence. Pupils were found to be dilated bilaterally. Narcan and flumazenil was given in ED without improvement in response. On physical exam in the ED, patient was noted to have GCS of 8, so patient was sedated and intubated. Patient's fiance brought the patient's medications on 07/15 and it was noted that the patient recently had his clonazepam refilled on 07/05/2025 with 60 pills, but only 10 pills were noted in the bottle on 07/15/2025. Additionally, patient's fiance noted that the patient is an active alcohol drinker, but patient is noted to deny alcohol consumption. Patient successfully extubated on 07/14 without complication. Patient was given Klonopin 1 mg, Ativan 2 mg x 2, phenobarbital 130 mg, Versed 2 mg, ziprasidone 10 mg, and Versed x 2 for agitation post extubation UDS 07/13 positive for THC, negative for benzodiazepines Initial renal and liver functions within normal limits, ammonia less than 10 Lactic acid within normal limits on presentation CT cervical spine and CT head performed 07/13 negative for acute findings Patient evaluated by neurology, per neurology patient back at baseline Plan: Continue Librium 50 mg twice daily for management of benzodiazepine withdrawal Continue Depakote 250 mg twice a day Neurology consulted, appreciate recommendations given unclear etiology of acute encephalopathy #Aspiration pneumonia vs community acquired pneumonia #Leukocytosis Patient noted to possibly have aspiration pneumonia versus community-acquired pneumonia given leukocytosis and findings on CT chest/abdomen/pelvis CT chest/abdomen/pelvis showed bibasilar lung opacity with moderate vascular congestion, possibly suggestive of aspiration pneumonia On arrival, patient noted to have increased WBC of 12.4 Blood cultures collected 07/13 negative for growth after 24 hours Sputum cultures preliminary show 3+ gram-positive cocci, pending speciation WBC 12.4 => 13.8 => 12.6, negative for fever, cough, and respiratory distress Plan: Recieved Ceftriaxone 1 gm x1 Monitor respiratory status, currently stable on room air #Wsn-[id number]-[id number] type 2 diabetes mellitus Patient has noted to have a history of NID T2DM per chart review. Patient reported to take metformin at home. Glucose on presentation to 297 Hemoglobin A1c 9.4% 07/15 Plan: Sliding scale insulin step 3 Insulin degludec 15 units daily Insulin lispro 5 units 3 times daily with meals Diet carbohydrate consistent low Bedside glucose checks ACHS Increase insulin degludec and lispro as needed depending on blood glucose in a.m. and fingerstick #Subclinical hypothyroid subclinical hypothyroid low TSH 0.40, normal free T4 -Can follow up outpatient #Chronic osteoporotic compressions T9, T8, T7, T6, T5 CT showed Chronic osteoporotic compressions T9, T8, T7, T6, T5 He takes baclofen, ibuprofen, and cyclobenzaprine -Outpatient follow up Health Maintenance: Disposition: Med Surg, monitoring for signs of benzodiazipne withdrawal, pending placement/eval. at a psychiatric hospital. DVT prophylaxis: Enoxaparin GI prophylaxis: Not indicated Diet: Carbohydrate consistent low CODE STATUS: FULL Case discussed with Attending Physician Dr. Pako Amin MD Internal Medicine PGY-2 Disclaimer: This note was dictated by speech recognition. Minor errors in brake tester may be present due to voice recognition software. Attending Provider Attestation/Addendum I have examined the patient, reviewed labs and imaging findings, discussed the case with the resident(s), and reviewed entered orders. I agree with the plan of care as outlined in this note, with these additional summaries/recommendations: Patient seen at bedside. Patient was placed on 5150 yesterday. Patient presented to emergency room on 03/07/2025 with chief complaint of overdose from diazepam, depression, and suicidal ideation. Patient then represented to [facility] emergency department on 07/13/2025 with suspected overdose of benzodiazepine requiring intubation given patient's inability to protect his airway and life-threatening state. It appears patient likely overdosed on his home Klonopin. Given these reasons, we requested crisis evaluation & patient was placed on hold. He is pending transfer. We will continue Librium for now to prevent benzodiazepine withdrawal. Patient was suspected of having aspiration pneumonia although antibiotics were discontinued. Patient's O2 saturation appropriate on room air. Continue insulin sliding scale for diabetes mellitus type 2 with Accu-Cheks. A1c 9.4%. Will follow-up with crisis team for additional recommendations. Please see residents note for additional details and management. Patient left the hospital later in the afternoon. John Winters was called. I was unable to see patient before he left or develop a safety plan. Attempt made to contact patient via telephone were unsuccessful. Local police notified immediately. Dr. Marcelo MD
[2025-07-16] MEDS: INSULIN DEGLUDEC 5 UNIT/0.05 ML (PER 5 UNITS) 15 UNIT SC (09:41)
[2025-07-16] MEDS: VALPROIC ACID SYRUP 250 MG/5 ML UDC PO (09:41)
[2025-07-16 12:00] VITALS: BP 139/101; PULSE 109; RESP 17; TEMP 37.1; O2SAT 97
--- NOTE | 2025-07-16 12:35 | PC.SS ---
MG met with pt and his mother Junie at bedside to update on LPS placement. MG explained com writer is not in charge of case but just giving update that they are working on said case and will provide update when they have one. Pt was adamant on going home, stating he can not leave his mother alone as she is elderly and unable to care for herself. Mother, Junie stated to MG, I do not want him to go to a facility, i need him home with me. MG explained com writer will express concerns to UYEN Castro who is following case from Beth FLETCHER.
--- NOTE | 2025-07-16 16:00 | PC.SS ---
Addendum entered by UYEN Santos 07/16/25 16:26: UYEN Castro spoke to Lucho at [place] [employer] and informed him patient left hospital and is on a 5150 hold-DTS, ROTARY CUTTER FEEDER provided address and phone number for patient. AfshanCarin stated that since they were unable to locate patient in [place], it will be handed over to [facility] as he lives in [place]. Original Note: Team B, RN LUCINDA Linton requested that ROTARY CUTTER FEEDER speak to patient about current status. UYEN Castro met with patient and patients mother at [facility]. ROTARY CUTTER FEEDER informed patient that LPS placement is still pending as there are no beds available. Patient became angry and stated that he should not be placed on a hold and he is going to leave. 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 Patients mother stated that she does not want her son to be transferred and wants to take him home. Patients mother also stated that she was not informed that he was on a 5150-hold. ROTARY CUTTER FEEDER reminded patient and patients mother that she was present in the room when CHANCE Stern informed them of the hold, and at the time mother had verbalized understanding. ROTARY CUTTER FEEDER informed patient that he is on a [id number] and if he leaves [place] PD will be called. Patient at that point eloped with IV intact. Patient exited the hospital with his mother. ROTARY CUTTER FEEDER called [place] [employer] 15:37 and informed them patient has eloped and is on a 5150-hold.
--- NOTE | 2025-07-16 16:14 | PC.NURSE ---
Pt combative and on 5150 hold with security 1:1 and mom at bedside. Pt left angry and violently AMA with IV in place on 18G LFA. Code green initiated at 1543. Crisis team, Ariela SAENZ, Dr. Robertson and Dr. Amin notified.
--- NOTE | 2025-07-16 16:21 | PD.RESEVENT ---
Documentation for date of: 07/16/25 Event Note Event Note: Code green initiated for patient at 1543 after being agitated upon informed by the crisis evaluation team that an LPS placement was still pending and that no psychiatric beds were currently available. Patient subsequently eloped from the facility while under a 5150 hold for Danger to Self. The patient was medically cleared yesterday, the crisis team had determined that patient met criteria for a 5150 hold due to suicidal risk as patient was intubated on admission with workup revealing suspected Benzodiazepine Overdose in ICU. Ariela SAENZ informed by MANAGER DEVELOPMENTAL. Case discussed with Attending Physician Dr. Pako Amin MD Internal Medicine PGY-2 Disclaimer: This note was dictated by speech recognition. Minor errors in balancing machine operator may be present due to voice recognition software.
--- NOTE | 2025-07-17 13:29 | PC.NURSE ---
1125: Called [place] [employer] ([employer]) if they were able to locate the patient at the time staff had notified them. Per [employer], they were busy at the time they were made aware of the elopement and stated that by the time of their arrival they could not locate the patient. Asked if they followed up at the patient's home address or the mother's address, they said no. They were also asked if they follow up on finding a patient that eloped, [employer] said they do not. 1217: Attempted to contact patient x2, no answer both times. [facility]
== END 2025-07-16 15:43 | disposition left against medical advice (07) | DRG 52 ==
LOC: SERX 19:41 → SERHOLD 20:58 → S2SX 07-14 03:16 → S3NX 07-15 13:39
PROVIDERS: Student in an Organized Health Care Education/Training Program; Admitting Provider Student in an Organized Health Care Education/Training Program; Emergency Provider Emergency Medicine; Visit Provider Student in an Organized Health Care Education/Training Program
DX: G93.41 Metabolic encephalopathy (principal); E11.40 Type 2 diabetes mellitus with diabetic neuropathy, unspecified; D72.829 Elevated white blood cell count, unspecified; E03.8 Other specified hypothyroidism; Z79.84 Long term (current) use of oral hypoglycemic drugs; F13.239 Sedative, hypnotic or anxiolytic dependence with withdrawal, unspecified; Z88.2 Allergy status to sulfonamides; Z79.4 Long term (current) use of insulin; Z79.899 Other long term (current) drug therapy; F32.A Depression, unspecified; J18.9 Pneumonia, unspecified organism; M81.0 Age-related osteoporosis without current pathological fracture; M48.061 Spinal stenosis, lumbar region without neurogenic claudication; R32 Unspecified urinary incontinence; Z78.1 Physical restraint status; T42.4X2A Poisoning by benzodiazepines, intentional self-harm, initial encounter; Z53.29 Procedure and treatment not carried out because of patient's decision for other reasons; T51.0X1A Toxic effect of ethanol, accidental (unintentional), initial encounter
CPT/HCPCS: 36415; 36600; 51702; 70450; 71250; 72125; 74176; 80053; 80061; 80069; 80307; 80320; 80329; 81001; 82140; 82248; 82550; 82803; 83036; 83605; 83690; 83735; 83880; 84100; 84145; 84439; 84443; 84484; 85025; 85610; 85652; 85730; 86140; 87040; 87077; 87081; 87186; 87205; 87811; 93005; 93225; 93306; 94002; 94003; 96361; 96374; 96375; 99285; 99292; A4216; A4314; J0330; J0696; J1200; J1650; J1815; J2060; J2250; J2251; J2560; J2704; J3010; J3480; J3486; J3490; J7120; A9270; G0480

== ENCOUNTER 2025-08-12 11:33 | Emergency (ER) | payer MEDICAID, SELFPAY ==
[2025-08-12 11:33] VITALS: BMI 25.0
[2025-08-12 11:50] VITALS: BP 139/95; PULSE 112; RESP 18; TEMP 37; O2SAT 97
--- NOTE | 2025-08-12 12:18 | XR_ITS ---
Examination: CT lumbar spine, without contrast. 2-D sagittal reconstructions. 2-D coronal reconstructions. 3-D reconstructions. Date and time of exam: August 12, 2025, 1328 hours INDICATIONS: Ground-level fall today with injury to lower back, lower back pain CTDI: vol (mGy): 24.1 DLP: (mGycm): 905 Technique: Multiple 1.25 mm axial sections of the lumbar spine without intravenous contrast have been obtained. 2-D sagittal and coronal reconstructions have been obtained. 3-D reconstructions have been obtained. Low dose protocols were performed. One or more of the following dose reduction techniques were used; automated exposure control, adjustment of the mA and/or KV according to patient size, use of iterative reconstruction technique. Findings: Adequate alignment lumbar vertebral bodies No lumbar vertebral body compression fracture Lumbar pedicles, laminae, transverse and posterior spinous processes intact L5-S1 calcified 4 mm central left paracentral osteophyte disc complex displacing the left S1 nerve root More cephalad levels unremarkable IMPRESSION: No lumbar fracture L5-S1 4 mm calcified central left paracentral disc complex displacing the left S1 nerve root
--- NOTE | 2025-08-12 12:18 | XR_ITS ---
Examination: CT brain head without contrast. 2-D sagittal coronal reconstructions Date and time of exam: August 12, 2025, 0125 hours INDICATIONS: Ground-level fall today with injury to the head, head pain CTDI: vol (mGy): 49.3 DLP: (mGycm): 951 Technique: Multiple CT axial sections of the brain have been obtained, 5 mm slice thickness. Contrast has not been administered. 2-D sagittal, coronal reconstructions have been obtained Low dose protocols were performed. One or more of the following dose reduction techniques were used; automated exposure control, adjustment of the mA and/or KV according to patient size, use of iterative reconstruction technique. Findings: No significant ventricular enlargement. Intra-axial or extra-axial hemorrhage density is not seen. No mass effect or midline shift Basal cisterns are not remarkable. Fourth ventricle is midline. Cranial vault intact. Impression: Negative for acute hemorrhage, mass effect or midline shift
--- NOTE | 2025-08-12 12:19 | PD.EDFALL ---
ED Fall Injury RME/HPI General Chief Complaint: Fall Stated Complaint: FALL/ HEAD PAIN Time Seen by Provider: 08/12/25 12:11 Arrival date/time: 08/12/25 11:33 45-year-old male patient with significant history of chronic sciatica, history of traumatic brain injury, came in for evaluation regarding ground-level fall. Patient sustained a ground-level lost balance and hit head on the toilet bowl no complaint of headache, confusion, worsening sciatica or low back pain, severity moderate. Patient denies any chest pain denies any abdominal pain. Patient is ambulatory. No medication was taken prior to ER visit. Patient is not taking any blood thinner. Related Data Home Medications ?Medication ?Instructions ?Recorded ?Confirmed amitriptyline 10 mg tablet 10 mg PO HS 07/15/25 07/15/25 baclofen 20 mg tablet 20 mg PO BID 07/15/25 07/15/25 clonazepam 1 mg tablet 1 mg PO BID 07/15/25 07/15/25 cyclobenzaprine 5 mg tablet 10 mg PO TID PRN muscle pain 07/15/25 07/15/25 hydrochlorothiazide 12.5 mg tablet 12.5 mg PO QDAY 07/15/25 07/15/25 ibuprofen 800 mg tablet 400 mg PO TID PRN pain 07/15/25 07/15/25 lisinopril 10 1 tab PO QDAY 07/15/25 07/15/25 mg-hydrochlorothiazide 12.5 mg tablet olanzapine 5 mg tablet 5 mg PO BID 07/15/25 07/15/25 paroxetine HCl 20 mg tablet 20 mg PO QDAY 07/15/25 07/15/25 quetiapine 25 mg tablet 25 mg PO QDAY 07/15/25 07/15/25 sumatriptan succinate 50 mg tablet 50 mg PO Q2H PRN migraine headache 07/15/25 07/15/25 Previous Rx's ?Medication ?Instructions ?Recorded acetaminophen 300 mg-codeine 30 mg 1 tab PO TID PRN pain #21 tabs 08/12/25 tablet Allergies Allergy/AdvReac Type Severity Reaction Status Date / Time Sulfa (Sulfonamide Allergy Severe Rash Verified 03/20/25 15:30 Antibiotics) Review of Systems Review of Systems Narrative Review of Systems: Review of system reviewed and within normal limits except mentioned in HPI ED Exam Narrative Physical exam: VITAL SIGNS: Reviewed. GENERAL APPEARANCE: Alert and interactive, follows commands, no acute distress, HEAD AND FACE: Non-traumatic. ENT: PERRL, pink conjunctivitis, eyelid no trauma, Mucous membrane moist. NECK: Supple, nontender, no nuchal rigidity. CHEST: No tenderness, no crepitus, no paradoxical movement, no retractions. LUNGS: Clear, well ventilated, symmetric, no rales, no wheezing, no ronchi, no stridor, good breath sounds bilaterally. HEART: Regular rate, regular rhythm, no murmur, no gallops. ABDOMEN: Soft, positive bowel sounds, nondistended, no guarding, nontender, no rebound, no masses, RECTAL: Deferred. GENITAL: Deferred. NEUROLOGICAL: Gross motor function intact sensory function intact, Appropriate for age. MUSCULOSKELETAL: low back nontender, full range of motion. EXTREMITIES: Nontender, full range of motion. SKIN: Color pink, dry, no rash, no lacerations, no abrasions, no contusions. LYMPHATICS: Deferred. Course Quality Measures none Orders Category Date Time Status CT cervical spine wo con Stat Exams 08/12/25 12:[address] head/brain wo con Stat Exams 08/12/25 12:[address] lumbar spine wo con Stat Exams 08/12/25 12:18 Completed ACETAMINOPHEN w/COD 300-30 [Tylenol w/Cod #3] Med 08/12/25 12:18 Discontinued 1 tab PO X1 ONE Ondansetron Odt [Zofran Odt] Med 08/12/25 12:58 Discontinued 4 mg PO X1 ONE Vital Signs Vital signs: Vital Signs Temperature 98.6 F 08/12/25 11:50 Pulse Rate 112 H 08/12/25 11:50 Respiratory Rate 18 08/12/25 11:50 Blood Pressure 139/95 H 08/12/25 11:50 Pulse Oximetry (%) 97 08/12/25 11:50 Oxygen Delivery Method Room Air 08/12/25 11:50 Fall MDM Narrative MDM Narrative:: 45-year-old male patient with significant history of chronic sciatica, history of traumatic brain injury, came in for evaluation regarding ground-level fall. Patient sustained a ground-level lost balance and hit head on the toilet bowl no complaint of headache, confusion, worsening sciatica or low back pain, severity moderate. Patient denies any chest pain denies any abdominal pain. Patient is ambulatory. No medication was taken prior to ER visit. Patient is not taking any blood thinner. CT scan of the head came back unremarkable. CT scan of the neck came back unremarkable. X-ray of the lumbar spine showed No lumbar fracture L5-S1 4 mm calcified central left paracentral disc complex displacing the left S1 nerve root Results discussed with the patient. Patient was also given a copy of his CT scans. Patient was advised to follow-up closely with spine surgeon for his lumbar disc problem. Patient agrees with the plan I will send the patient home on Tylenol with codeine Stable for discharge home Patient data External records reviewed:: None Clinical information provided by:: patient Social determinants that could affect healthcare access:: none Patient has the following chronic illnesses:: History of traumatic brain injury history of chronic back pain with sciatica How is presenting disease/condition affected by chronic disease/condition?: exacerbated by Evaluation data The following diagnostics were reviewed and interpreted by me:: radiology exam(s) Lab and/or radiology exams considered but not ordered:: None Interpretation Summary: See above Medications / Prescriptions Medications or Prescriptions considered but not ordered:: None Medication administrations:: Medication Administration History Discontinued Medications Acetaminophen/Codeine Phosphate (Acetaminophen W/Cod 300-30 Tablet) 1 tab PO X1 ONE Stop: 08/12/25 12:19 Last Admin: 08/12/25 12:52 Dose: 1 tab Documented By: JAYNE Ondansetron HCl (Ondansetron Odt 4 Mg Tabrap) 4 mg PO X1 ONE; Protocol Stop: 08/12/25 12:59 Last Admin: 08/12/25 13:12 Dose: 4 mg Documented By: Margoth Patrickenol with codeine Consultations Consultation(s) initiated? (list below): No Diagnosis Fall Differential Diagnosis: concussion with loss of consciousness and other (Intracranial bleed, closed head injury, low back pain status post fall) Most likely diagnosis given after review of the tests above:: Closed head injury, low back pain status post fall Admission Indicated Admission indicated?: not indicated Admission Request Was there a request for admission?: No Disposition Plan Disposition Plan: Discharge Discharge Attestation Discharge Attestation: The patient and all family members were given an opportunity to ask questions and understood the discharge instructions. Discharge instructions specifically effects, indications for sooner follow up or return to the emergency department, and the expected course of current diagnosis. Patient condition: Stable Discharge Plan Plan Patient Disposition: HOME (Self Care) Discharge Disposition comment: Stable Prescriptions/Referrals Prescriptions/Med Rec: New acetaminophen-codeine 300-30 mg tablet 1 tab PO TID PRN (Reason: pain) Qty: 21 0RF No Action amitriptyline 10 mg tablet 10 mg PO HS Patient Comments: TAKE ONE TABLET BY MOUTH AT BEDTIME sumatriptan succinate 50 mg tablet 50 mg PO Q2H PRN (Reason: migraine headache) Patient Comments: TAKE 1 TABLET BY MOUTH AT ONSET OF MIGRAINE. MAY REPEAT ONCE AFTER 2 HOURS IF NEEDED clonazepam 1 mg tablet 1 mg PO BID hydrochlorothiazide 12.5 mg tablet 12.5 mg PO QDAY Patient Comments: TAKE 1 TABLET BY MOUTH EVERY DAY baclofen 20 mg tablet 20 mg PO BID Patient Comments: TAKE 1 TABLET BY MOUTH TWICE A DAY cyclobenzaprine 5 mg tablet 10 mg PO TID PRN (Reason: muscle pain) Patient Comments: TAKE ONE TABLET BY MOUTH AT BEDTIME NEEDED FOR MUSCLE SPASMS ibuprofen 800 mg tablet 400 mg PO TID PRN (Reason: pain) Patient Comments: TAKE 1 TABLET (800 MG) BY MOUTH EVERY 6 HOURS IF NEEDED FOR MODERATE 5-6 PAIN FOR UP TO 10 DAYS. lisinopril-hydrochlorothiazide 10-12.5 mg tablet 1 tab PO QDAY Patient Comments: TAKE ONE TABLET BY MOUTH EVERY MORNING FOR BLOOD PRESSURE paroxetine HCl 20 mg tablet 20 mg PO QDAY Patient Comments: TAKE ONE TABLET BY MOUTH EVERY MORNING quetiapine 25 mg tablet 25 mg PO QDAY Patient Comments: TAKE ONE TABLET BY MOUTH EVERY DAY olanzapine 5 mg tablet 5 mg PO BID Referrals: Ricardo Harvey MD [Primary Care Provider, Family Practice] - In 1 week Problem List Clinical Impression: Closed head injury, Low back pain Patient/Caregiver Discharge Instructions Discharge Activity: activity as tolerated Education Materials: ED Head Injury (Adult) Additional Instructions: Thank you for the opportunity for serving you today. You are stable for discharged . You are advised to: Follow-up with your PCP in 1 to 2 days Return to ED for worsening of symptoms Increase oral fluids Take medication as prescribed Print Language: Albanian Stand Alone Forms: Isabel Award Info., Patient Portal Info Letter YUMIKO/RADHA Supervising Physician YUMIKO/RADHA Supervising Physician: Howie Tian MD
--- NOTE | 2025-08-12 12:23 | XR_ITS ---
Examination: CT cervical spine without contrast 2-D sagittal reconstructions 2-D coronal reconstructions 3-D reconstructions. Exam date and time: August 12, 2025, 1325 hours INDICATIONS: Ground-level fall today with injury to the neck, neck pain CTDI:vol (mGy) 17.8 DLP: (mGycm) 389 Technique: Multiple 2 mm axial sections of the cervical spine have been obtained. The coronal and sagittal reconstructions have been obtained. 3-D reconstructions have been obtained. Low dose protocols were performed. One or more of the following dose reduction techniques were used; automated exposure control, adjustment of the mA and/or KV according to patient size, use of iterative reconstruction technique. Findings: Axial sections demonstrate intact base of the skull. C1 exhibit satisfactory relationship to the odontoid. No acute cervical vertebral body fracture seen. Alignment posterior spinous processes satisfactory. Impression: No acute cervical fracture.
[2025-08-12] MEDS: ACETAMINOPHEN w/COD 300-30 TABLET 1 TAB PO (12:52)
[2025-08-12] MEDS: ONDANSETRON ODT 4 MG TABRAP PO (13:12)
[2025-08-12 15:15] VITALS: BP 154/98; PULSE 100; RESP 16; TEMP 36.8; O2SAT 97
== END 2025-08-12 15:16 | disposition home or self-care (01) ==
PROVIDERS: Emergency Provider Emergency Medicine; PCP Family Medicine
DX: S09.90XA Unspecified injury of head, initial encounter (principal); S19.9XXA Unspecified injury of neck, initial encounter; S39.92XA Unspecified injury of lower back, initial encounter; M51.17 Intervertebral disc disorders with radiculopathy, lumbosacral region; W01.198A Fall on same level from slipping, tripping and stumbling with subsequent striking against other object, initial encounter; Z87.820 Personal history of traumatic brain injury
CPT/HCPCS: 70450; 72125; 72131; 99283; Q0162; A9270

== ENCOUNTER 2025-08-26 14:45 | Inpatient (IN) | payer MEDICAID, SELFPAY ==
[2025-08-26] VITALS (7 sets, daily range): BP systolic 126–150; BP diastolic 87–96; PULSE 93–108; RESP 19–93; TEMP 36.1–37.6; O2SAT 89–96; BMI 24.1
--- NOTE | 2025-08-26 14:51 | XR_ITS ---
Exam: Chest PA, lateral 2 views Technique: Chest upright PA lateral 2 views Date and time of exam: 08/26/2025, 3:00 p.m. INDICATION: Shortness of breath Comparison 07/13/2025. FINDINGS: Heart size and pulmonary vascular structures appear normal. Diffuse patchy areas of opacification seen involving all lung ramon. No evidence of pneumothorax. No pleural effusion. No acute bony abnormality Impression: Diffuse bilateral multifocal infiltrates involving all lung zones.
--- NOTE | 2025-08-26 14:51 | EKG_ITS ---
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
--- NOTE | 2025-08-26 14:57 | PD.EDSOB ---
ED SOB =RME/HPI General Chief Complaint: Shortness of Breath/Dyspnea Stated Complaint: SOB Time Seen by Provider: 08/26/25 14:49 Arrival date/time: 08/26/25 14:45 RME / HPI RME / HPI Narrative: 45 yo male patient BIBA c/o SOB. Patient was found with O2 saturation 62% on room air by fire. When EMS arrived he was saturating 94% on 6L with desaturation to the 80s on 2L. Patient initially refused transport. I spoke to the patient via EMS and patient still refused transport. Shortly after EMS left, the patient called them back and agreed to transport. Per [facility] records, patient has a h/o TBI and benzodiazepine abuse. Patient states he has been sick off and on for the last two weeks. More difficulty breathing over the last 3 days. Patient states that he has been trying to sleep in a more seated position because he has been too short of breath to lie flat. 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 Denies history of TB. Related Data Home Medications ?Medication ?Instructions ?Recorded ?Confirmed baclofen 20 mg tablet 20 mg PO BID 07/15/25 08/26/25 clonazepam 1 mg tablet 1 mg PO BID 07/15/25 08/26/25 hydrochlorothiazide 12.5 mg tablet 12.5 mg PO QDAY 07/15/25 08/26/25 ibuprofen 800 mg tablet 400 mg PO TID PRN pain 07/15/25 08/26/25 paroxetine HCl 20 mg tablet 20 mg PO QDAY 07/15/25 08/26/25 sumatriptan succinate 50 mg tablet 50 mg PO Q2H PRN migraine headache 07/15/25 08/26/25 albuterol sulfate 90 mcg/actuation 2 puff inhalation Q4H PRN 08/26/25 08/26/25 aerosol inhaler shortness of breath or wheezing benzonatate 200 mg capsule 200 mg PO TID PRN cough 08/26/25 08/26/25 cyclobenzaprine 10 mg tablet 10 mg PO HS PRN spasms 08/26/25 08/26/25 hydrocodone 5 mg-acetaminophen 325 1 tab PO Q12H PRN pain 08/26/25 08/26/25 mg tablet lisinopril 10 mg tablet 10 mg PO QDAY 08/26/25 08/26/25 pregabalin 25 mg capsule 25 mg PO Q12H 08/26/25 08/26/25 promethazine-DM 6.25 mg-15 mg/5 mL 5 ml PO Q4H PRN cough 08/26/25 08/26/25 oral syrup Previous Rx's ?Medication ?Instructions ?Recorded amoxicillin-potassium clavulanate 1 tab PO Q12H #14 tabs 08/31/25 1,000 mg-62.5 mg tablet,ext.rel 12hr (Augmentin XR) Allergies Allergy/AdvReac Type Severity Reaction Status Date / Time Sulfa (Sulfonamide Allergy Severe Rash Verified 08/26/25 14:54 Antibiotics) Course Quality Measures none Orders Category Date Time Status Bedside COVID-19 Antigen Test NOW Care 08/26/25 15:42 Completed Bedside Influenza A&B Antigen Test NOW Care 08/26/25 15:43 Completed Vp Cardiovascular NOW Care 08/26/25 14:51 Completed EKG (ED ONLY) *Do not use* NOW Care 08/26/25 14:51 Completed SVN NEEDED Care 08/26/25 16:02 Completed EKG (ED Only) Stat Exams 08/26/25 14:51 Draft XR chest 2V Stat Exams 08/26/25 14:51 Completed ABG [Arterial Blood Gas] Stat Lab 08/26/25 16:40 Completed B-Type Natriuretic Peptide Stat Lab 08/26/25 14:58 Completed Blood Culture (Lab) Stat Lab 08/26/25 16:10 Completed CBC Stat Lab 08/26/25 14:58 Completed Cocci Serology IgM with reflex to IgG [Cocci Serology, Lab 08/26/25 16:10 Completed Unk History] Stat Cocci Serology, IgG Stat Lab 08/26/25 16:10 Completed Comprehensive Metabolic Panel Stat Lab 08/26/25 14:58 Completed Drug Screen,Urine Stat Lab 08/26/25 17:15 Completed HIV (1&2) Antibody Rapid Stat Lab 08/26/25 14:58 Completed LDH (Lactate Dehydrogenase) Stat Lab 08/26/25 16:10 Completed Lactate (Lactic Acid) Stat Lab 08/26/25 16:10 Completed Lipase Stat Lab 08/26/25 14:58 Completed Magnesium Stat Lab 08/26/25 14:58 Completed Partial Thromboplastin Time Stat Lab 08/26/25 14:58 Completed Procalcitonin Stat Lab 08/26/25 16:10 Completed Prothrombin Time with INR Stat Lab 08/26/25 14:58 Completed Sputum Culture and Gram Stain Stat Lab 08/26/25 18:28 Completed Troponin I Stat Lab 08/26/25 14:58 Completed UA, C/S IF [Urinalysis, C/S if Indicated] Stat Lab 08/26/25 17:15 Completed Azithromycin Inj [Zithromax Inj] 500 mg Med 08/26/25 16:08 Discontinued Sodium Chloride 0.9% 250 ml [Ns] 250 ml IV X1 Sodium Chloride Rt Alecia 10% [NS Rt Alecia 10%] Med 08/26/25 16:01 Discontinued 5 ml INH X1 ONE Sodium Chloride Rt Alecia 10% [NS Rt Alecia 10%] Med 08/26/25 16:01 Discontinued 5 ml INH X1 ONE cefTRIAXone/D5w 1gm IV premix [Rocephin/D5w 1gm IV Med 08/26/25 16:08 Discontinued premix] 1 gm in 50 ml IV X1 Oxygen Delivery NOW RT 08/26/25 15:04 Completed Sputum Induction NOW RT 08/26/25 16:15 Ordered Sputum Induction PRN RT 08/26/25 16:15 Ordered Vital Signs Vital signs: Vital Signs Temperature 97.7 F 08/26/25 14:48 Pulse Rate 108 H 08/26/25 14:48 Respiratory Rate 20 08/26/25 14:48 Blood Pressure 150/95 H 08/26/25 14:48 Pulse Oximetry (%) 89 L 08/26/25 14:48 Oxygen Delivery Method Nasal Cannula 08/26/25 14:48 Oxygen Flow Rate 4 08/26/25 14:48 Shortness of Breath / Dyspnea Patient data External records reviewed:: [facility] previous records Clinical information provided by:: patient and EMS Social determinants that could affect healthcare access:: none Patient has the following chronic illnesses:: HTN How is presenting disease/condition affected by chronic disease/condition?: uneffected by Evaluation data The following diagnostics were reviewed and interpreted by me:: lab results, radiology exam(s) and EKG tracing(s) Lab and/or radiology exams considered but not ordered:: Considered CTA chest Interpretation Summary: Chest Xray 1 view AP portable interpreted by me: good inspiratory effort, normal cardiac shadow, diaphragms well-defined, no effusions, patchy infiltrates throughout lung ramon, normal pulmonary artery contour, consistent with an atypical pneumonia EKG interpreted by me: Sinus tachycardia rate of 102, IVCD, notched P wave in lead I and II, similar to previous, no acute ischemic changes Laboratory values interpreted by me: Slight anemia hemoglobin 12.4, no leukocytosis however neutrophilic predominance, mild lymphopenia?lymphocytes 0.7 Medications / Prescriptions Medications or Prescriptions considered but not ordered:: none Medication administrations:: Medication Administration History Discontinued Medications Acetaminophen (Acetaminophen 325 Mg Tablet) 650 mg PO Q6H PRN PRN Reason: Fever >101.5 Stop: 09/25/25 16:33 Hydrocodone Bitart/Acetaminophen (Hydrocodone/Apap 5/325 Tablet) 1 tab PO X1 ONE Stop: 08/27/25 00:16 Last Admin: 08/27/25 00:39 Dose: 1 tab Documented By: RB Hydrocodone Bitart/Acetaminophen (Hydrocodone/Apap 5/325 Tablet) 1 tab PO Q6HR PRN PRN Reason: PAIN SCALE 4-10(Mod-Sev Stop: 09/01/25 09:37 Last Admin: 08/31/25 08:50 Dose: 1 tab Documented By: Admin: 08/30/25 16:26 Dose: 1 tab Documented By: Admin: 08/30/25 04:53 Dose: 1 tab Documented By: Admin: 08/29/25 21:26 Dose: 1 tab Documented By: Admin: 08/29/25 11:39 Dose: 1 tab Documented By: Admin: 08/29/25 04:31 Dose: 1 tab Documented By: Admin: 08/28/25 19:12 Dose: 1 tab Documented By: [email or web address] Admin: 08/28/25 10:24 Dose: 1 tab Documented By: Admin: 08/27/25 21:20 Dose: 1 tab Documented By: Admin: 08/27/25 10:15 Dose: 1 tab Documented By: LETY Albuterol/Ipratropium (Albuterol/Ipratropium (Duoneb) Rt Alecia 3 Ml Nebu) 3 ml INH Q4HRRT KRYSTAL Stop: 09/26/25 14:59 Last Admin: 08/31/25 11:27 Dose: 3 ml Documented By: Admin: 08/31/25 06:58 Dose: 3 ml Documented By: Admin: 08/31/25 02:28 Dose: Not Given Documented By: GB Non-Admin Reason: Patient Refused Admin: 08/30/25 23:00 Dose: Not Given Documented By: GB Non-Admin Reason: Patient Refused Admin: 08/30/25 18:45 Dose: 3 ml Documented By: Admin: 08/30/25 15:13 Dose: 3 ml Documented By: Admin: 08/30/25 10:07 Dose: 3 ml Documented By: Admin: 08/30/25 06:11 Dose: 3 ml Documented By: Admin: 08/30/25 03:10 Dose: Not Given Documented By: KB Non-Admin Reason: Patient Refused Admin: 08/29/25 22:48 Dose: Not Given Documented By: PAR Non-Admin Reason: Patient Refused Admin: 08/29/25 18:33 Dose: 3 ml Documented By: Admin: 08/29/25 14:52 Dose: 3 ml Documented By: Admin: 08/29/25 10:53 Dose: Not Given Documented By: AA Non-Admin Reason: Not In Room Admin: 08/29/25 07:36 Dose: 3 ml Documented By: Admin: 08/29/25 03:24 Dose: Not Given Documented By: GB Non-Admin Reason: Patient Refused Admin: 08/28/25 22:51 Dose: Not Given Documented By: GB Non-Admin Reason: Patient Refused Admin: 08/28/25 19:55 Dose: 3 ml Documented By: Admin: 08/28/25 16:22 Dose: 3 ml Documented By: Admin: 08/28/25 10:44 Dose: 3 ml Documented By: Admin: 08/28/25 07:36 Dose: Not Given Documented By: BJ Non-Admin Reason: Patient Refused Admin: 08/28/25 03:01 Dose: 3 ml Documented By: Admin: 08/27/25 23:54 Dose: 3 ml Documented By: Admin: 08/27/25 18:23 Dose: 3 ml Documented By: Admin: 08/27/25 15:16 Dose: 3 ml Documented By: MICHAEL Albuterol/Ipratropium (Albuterol/Ipratropium (Duoneb) Rt Alecia 3 Ml Nebu) 3 ml INH Q2HR PRN PRN Reason: SHORTNESS OF BREATH OR WHEEZE Stop: 01/13/26 13:59 Azithromycin (Azithromycin 250 Mg Tablet) 500 mg PO QDAY K[facility]STAL Stop: 09/08/25 12:00 Last Admin: 08/29/25 08:38 Dose: 500 mg Documented By: JANINE Baclofen (Baclofen 10 Mg Tablet) 20 mg PO BID KRYSTAL Stop: 09/26/25 09:44 Last Admin: 08/31/25 08:52 Dose: 20 mg Documented By: Admin: 08/30/25 20:55 Dose: 20 mg Documented By: JOSE ANTONIO Admin: 08/30/25 09:04 Dose: 20 mg Documented By: Admin: 08/29/25 21:09 Dose: 20 mg Documented By: Admin: 08/29/25 08:38 Dose: 20 mg Documented By: Admin: 08/28/25 20:56 Dose: 20 mg Documented By: Admin: 08/28/25 08:20 Dose: 20 mg Documented By: Admin: 08/27/25 21:01 Dose: 20 mg Documented By: Admin: 08/27/25 10:02 Dose: 20 mg Documented By: LETY Clonazepam (Clonazepam 0.5 Mg Tablet) 1 mg PO BID KRYSTAL Stop: 08/28/25 09:00 Last Admin: 08/27/25 15:42 Dose: 1 mg Documented By: LETY Clonazepam (Clonazepam 0.5 Mg Tablet) 1 mg PO BID KRYSTAL Stop: 09/02/25 09:59 Last Admin: 08/31/25 08:51 Dose: 1 mg Documented By: Admin: 08/30/25 20:55 Dose: 1 mg Documented By: JOSE ANTONIO Admin: 08/30/25 09:05 Dose: 1 mg Documented By: Admin: 08/29/25 21:09 Dose: 1 mg Documented By: Admin: 08/29/25 08:38 Dose: 1 mg Documented By: Admin: 08/28/25 20:56 Dose: 1 mg Documented By: Admin: 08/28/25 10:23 Dose: 1 mg Documented By: DUNCAN Cyclobenzaprine HCl (Cyclobenzaprine 5 Mg Tablet) 10 mg PO HS PRN PRN Reason: spasms Last Admin: 08/30/25 21:20 Dose: 10 mg Documented By: Admin: 08/28/25 19:12 Dose: 10 mg Documented By: RONIT Dextrose (Dextrose 50%-Water Inj 50 Ml Syringe) 25 ml IV Q15MIN PRN PRN Reason: BG 50-70 responsive npo pt Stop: 09/25/25 18:18 Dextrose (Dextrose 50%-Water Inj 50 Ml Syringe) 50 ml IV Q15MIN PRN PRN Reason: BG <50 OR BG <70 & pt unresponsive Stop: 09/25/25 18:18 Fluconazole (Fluconazole 100 Mg Tablet) 400 mg PO QDAY [facility] Stop: 09/05/25 08:59 Last Admin: 08/29/25 08:37 Dose: 400 mg Documented By: JANINE Glucagon (Glucagon Inj 1 Mg Vial) 1 mg IM Q15MIN PRN PRN Reason: BG <70, and no IV access Heparin Sodium (Porcine) (Heparin Sod Inj 5000 Unit/Ml Vial) 5,000 unit SC BID [facility] Stop: 09/09/25 20:59 Last Admin: 08/31/25 08:49 Dose: 5,000 unit Documented By: LETY Co-signed By: LALO Admin: 08/30/25 20:56 Dose: 5,000 unit Documented By: WB Co-signed By: MANDA Admin: 08/30/25 09:11 Dose: 5,000 unit Documented By: JANINE Co-signed By: LEAH Admin: 08/29/25 21:10 Dose: 5,000 unit Documented By: RONIT Co-signed By: GERALD Admin: 08/29/25 08:44 Dose: 5,000 unit Documented By: JANINE Co-signed By: ROMARIO Admin: 08/28/25 20:57 Dose: 5,000 unit Documented By: RONIT Co-signed By: KENNA Admin: 08/28/25 08:21 Dose: 5,000 unit Documented By: DUNCAN Co-signed By: ROMARIO Admin: 08/27/25 21:02 Dose: 5,000 unit Documented By: AM Co-signed By: CCT Admin: 08/27/25 10:04 Dose: 5,000 unit Documented By: LETY Co-signed By: ROMARIO(2) Admin: 08/26/25 21:14 Dose: Not Given Documented By: RB Non-Admin Reason: Patient Refused Hydrochlorothiazide (Hydrochlorothiazide 12.5 Mg Capsule) 12.5 mg PO QDAY [facility] Stop: 09/26/25 09:44 Last Admin: 08/31/25 08:52 Dose: 12.5 mg Documented By: Admin: 08/30/25 09:04 Dose: 12.5 mg Documented By: Admin: 08/29/25 08:38 Dose: 12.5 mg Documented By: Admin: 08/28/25 08:21 Dose: 12.5 mg Documented By: Admin: 08/27/25 10:03 Dose: 12.5 mg Documented By: LETY Azithromycin 500 mg/ Sodium (Chloride) 250 mls @ 250 mls/hr IV X1 ONE Stop: 08/26/25 17:07 Last Admin: 08/26/25 16:51 Dose: 250 mls/hr Documented By: EF Ceftriaxone Sodium/Dextrose (Rocephin/D5w 1gm Iv Premix) 1 gm in 50 mls @ 100 mls/hr IV X1 ONE Stop: 08/26/25 16:37 Last Infusion: 08/26/25 17:20 Dose: Infused Documented By: Admin: 08/26/25 16:50 Dose: 100 mls/hr Documented By: EF Ceftriaxone Sodium/Dextrose (Rocephin/D5w 1gm Iv Premix) 1 gm in 50 mls @ 100 mls/hr IV HS [facility]STAL Stop: 09/03/25 20:59 Last Infusion: 08/28/25 21:46 Dose: Infused Documented By: Admin: 08/28/25 20:55 Dose: 100 mls/hr Documented By: Infusion: 08/27/25 21:31 Dose: Infused Documented By: Admin: 08/27/25 21:01 Dose: 100 mls/hr Documented By: AM Azithromycin 250 mg/ Sterile (Water 2.5 ml/ Sodium Chloride) 252.5 mls @ 252.5 mls/hr IV HS [facility]AL Stop: 09/03/25 20:59 Last Admin: 08/27/25 21:20 Dose: 252.5 mls/hr Documented By: AM Cefepime HCl 1 gm/ Sodium (Chloride) 50 mls @ 100 mls/hr IV Q8HR [facility] Stop: 09/05/25 10:06 Last Admin: 08/31/25 05:58 Dose: 100 mls/hr Documented By: Infusion: 08/30/25 21:50 Dose: Infused Documented By: Admin: 08/30/25 21:20 Dose: 100 mls/hr Documented By: Infusion: 08/30/25 14:17 Dose: Infused Documented By: Admin: 08/30/25 13:47 Dose: 100 mls/hr Documented By: Infusion: 08/30/25 05:31 Dose: Infused Documented By: Admin: 08/30/25 05:01 Dose: 100 mls/hr Documented By: Infusion: 08/29/25 21:40 Dose: Infused Documented By: Admin: 08/29/25 21:10 Dose: 100 mls/hr Documented By: Admin: 08/29/25 13:13 Dose: Not Given Documented By: JANINE Non-Admin Reason: WRONG TIME, TOO CLOSE Infusion: 08/29/25 11:59 Dose: Infused Documented By: Admin: 08/29/25 11:29 Dose: 100 mls/hr Documented By: JANINE Sodium Chloride (Ns) 1,000 mls @ 125 mls/hr IV .Q8H ONE Stop: 08/30/25 15:54 Last Admin: 08/30/25 09:03 Dose: 125 mls/hr Documented By: JANINE Insulin Human Lispro (Insulin Lispro (Admelog) 1 Unit/0.01 Ml Unit) 0 unit SC AC [facility]; Protocol Stop: 09/26/25 07:29 Last Admin: 08/28/25 12:28 Dose: 2 unit Documented By: DUNCAN Co-signed By: ROMARIO Admin: 08/28/25 08:31 Dose: Not Given Documented By: DUNCAN Non-Admin Reason: patient not eating Admin: 08/27/25 18:20 Dose: Not Given Documented By: CP Non-Admin Reason: not eating Admin: 08/27/25 15:26 Dose: Not Given Documented By: LETY Non-Admin Reason: Per Protocol Comments: not eating. med held Admin: 08/27/25 09:59 Dose: Not Given Documented By: LETY Non-Admin Reason: Per Protocol Insulin Human Lispro (Insulin Lispro (Admelog) 1 Unit/0.01 Ml Unit) 0 unit SC ACHS [facility]ST[facility]; Protocol Stop: 09/27/25 16:59 Last Admin: 08/30/25 07:30 Dose: 5 unit Documented By: JANINE Co-signed By: CAROLYN Admin: 08/29/25 21:10 Dose: 5 unit Documented By: RONIT Co-signed By: GERALD Admin: 08/29/25 17:16 Dose: 5 unit Documented By: ROMARIO(2) Co-signed By: JACQUE Admin: 08/29/25 11:28 Dose: 4 unit Documented By: JANINE Co-signed By: ROMARIO Admin: 08/29/25 08:43 Dose: 5 unit Documented By: JANINE Co-signed By: ROMARIO Admin: 08/28/25 20:56 Dose: 4 unit Documented By: RONIT Co-signed By: KENNA Admin: 08/28/25 17:22 Dose: Not Given Documented By: DUNCAN Non-Admin Reason: pt reports poor appetite, not eating rn Insulin Human Lispro (Insulin Lispro (Admelog) 1 Unit/0.01 Ml Unit) 0 unit SC ACHS [facility]; Protocol Stop: 09/27/25 11:29 Last Admin: 08/31/25 12:08 Dose: 6 unit Documented By: LETY Co-signed By: MASHA Admin: 08/31/25 08:52 Dose: 6 unit Documented By: LETY Co-signed By: LALO Comments: late due to pt not eating yet Admin: 08/30/25 20:56 Dose: 6 unit Documented By: JOSE ANTONIO Co-signed By: MANDA Admin: 08/30/25 16:26 Dose: 6 unit Documented By: JANINE Co-signed By: LEAH Admin: 08/30/25 11:47 Dose: 6 unit Documented By: JANINE Co-signed By: TALAT Insulin Human Lispro (Insulin Lispro (Admelog) 1 Unit/0.01 Ml Unit) 10 unit SC X1 ONE Stop: 08/30/25 12:00 Last Admin: 08/30/25 12:11 Dose: 10 unit Documented By: JANINE Co-signed By: LEAH Insulin Human Lispro (Insulin Lispro (Admelog) 1 Unit/0.01 Ml Unit) 5 unit SC X1 ONE Stop: 08/31/25 08:05 Last Admin: 08/31/25 08:50 Dose: 5 unit Documented By: LETY Co-signed By: LALO Lisinopril (Lisinopril 2.5 Mg Tablet) 10 mg PO QDAY [facility] Stop: 09/26/25 08:59 Last Admin: 08/31/25 08:50 Dose: 10 mg Documented By: Admin: 08/30/25 09:05 Dose: 10 mg Documented By: Admin: 08/29/25 08:39 Dose: 10 mg Documented By: Admin: 08/28/25 08:20 Dose: 10 mg Documented By: Admin: 08/27/25 10:03 Dose: 10 mg Documented By: LETY Comments: late due to multiple pt meds Lorazepam (Lorazepam 2 Mg/Ml Vial) 2 mg IVP X1 PRN PRN Reason: prior for scheduled CTA scan Lorazepam (Lorazepam 2 Mg/Ml Vial) 1 mg IVP X1 PRN PRN Reason: prior for scheduled CTA scan Melatonin (Melatonin 3 Mg Tablet) 6 mg PO HS [facility] Stop: 09/26/25 20:59 Last Admin: 08/30/25 20:55 Dose: 6 mg Documented By: JOSE ANTONIO Admin: 08/29/25 21:09 Dose: 6 mg Documented By: Admin: 08/28/25 20:56 Dose: 6 mg Documented By: Admin: 08/27/25 21:01 Dose: 6 mg Documented By: AM Methylprednisolone Sodium Succinate (Methylprednisolone Sod Succ 40 Mg/Ml Vial) 60 mg IVP BID [facility] Stop: 09/04/25 20:59 Last Admin: 08/31/25 08:48 Dose: 60 mg Documented By: Admin: 08/30/25 20:55 Dose: 60 mg Documented By: JOSE ANTONIO Admin: 08/30/25 09:04 Dose: 60 mg Documented By: Admin: 08/29/25 21:09 Dose: 60 mg Documented By: Admin: 08/29/25 08:37 Dose: 60 mg Documented By: Admin: 08/28/25 20:55 Dose: 60 mg Documented By: RONIT Paroxetine HCl (Paroxetine Hcl 10 Mg Tablet) 20 mg PO QDAY [facility] Stop: 09/29/25 08:59 Last Admin: 08/31/25 08:51 Dose: 20 mg Documented By: Admin: 08/30/25 09:04 Dose: 20 mg Documented By: JANINE Potassium Chloride (Potassium Chloride 20 Meq Tabcr) 40 meq PO X1 ONE Stop: 08/28/25 07:58 Last Admin: 08/28/25 08:20 Dose: 40 meq Documented By: DUNCAN Pregabalin (Pregabalin 25 Mg Capsule) 25 mg PO BID [facility] Stop: 09/26/25 09:44 Last Admin: 08/31/25 08:51 Dose: 25 mg Documented By: Admin: 08/30/25 20:55 Dose: 25 mg Documented By: Admin: 08/30/25 09:05 Dose: 25 mg Documented By: Admin: 08/29/25 21:09 Dose: 25 mg Documented By: Admin: 08/29/25 08:38 Dose: 25 mg Documented By: Admin: 08/28/25 20:57 Dose: 25 mg Documented By: Admin: 08/28/25 08:20 Dose: 25 mg Documented By: Admin: 08/27/25 21:01 Dose: 25 mg Documented By: Admin: 08/27/25 10:04 Dose: 25 mg Documented By: LETY Promethazine HCl/Dextromethorphan (Promethazine/Dm Syrup 5 Ml Dose) 5 ml PO X1 ONE; Protocol Stop: 08/27/25 03:50 Last Admin: 08/27/25 04:02 Dose: 5 ml Documented By: RB Sodium Chloride (Sodium Chloride Rt 10% 15 Ml Nebu) 5 ml INH X1 ONE Stop: 08/26/25 16:02 Last Admin: 08/26/25 18:29 Dose: Not Given Documented By: BILL Non-Admin Reason: Tx not needed for sputum induction Sodium Chloride (Sodium Chloride Rt 10% 15 Ml Nebu) 5 ml INH X1 ONE Stop: 08/26/25 16:02 Last Admin: 08/26/25 21:07 Dose: Not Given Documented By: MEHRAN Non-Admin Reason: sputum pending pt expectorated Sodium Chloride (Sodium Chloride Rt 10% 15 Ml Nebu) 5 ml INH X1 ONE Stop: 08/27/25 10:06 Sodium Chloride (Sodium Chloride Rt 10% 15 Ml Nebu) 5 ml INH X1 ONE Stop: 08/27/25 10:29 Last Admin: 08/27/25 16:46 Dose: Not Given Documented By: LETY Non-Admin Reason: Per Protocol Sodium Chloride (Sodium Chloride Rt 10% 15 Ml Nebu) 5 ml INH X1 ONE Stop: 08/27/25 10:32 Sodium Chloride (Sodium Chloride Rt 10% 15 Ml Nebu) 5 ml INH X1 ONE Stop: 08/27/25 16:11 Last Admin: 08/28/25 03:08 Dose: Not Given Documented By: NE Non-Admin Reason: pt able to expectorate AFB at 0100 sent Sodium Chloride (Sodium Chloride Rt 10% 15 Ml Nebu) 5 ml INH X1 ONE Stop: 08/27/25 16:23 Last Admin: 08/28/25 03:07 Dose: Not Given Documented By: NE Non-Admin Reason: AFB due at 0100 Sodium Chloride (Sodium Chloride Rt 10% 15 Ml Nebu) 5 ml INH X1 ONE Stop: 08/27/25 23:52 Last Admin: 08/28/25 07:23 Dose: Not Given Documented By: BJ Non-Admin Reason: not needed to get sample Sodium Polystyrene Sulfonate (Sod Polystyrene Sulfon Susp 15 Gm/60 Ml Btl) 30 gm PO X1 ONE Stop: 08/30/25 07:56 Last Admin: 08/30/25 09:03 Dose: 30 gm Documented By: DA Sumatriptan Succinate (Sumatriptan 25 Mg Tablet) 50 mg PO Q2H PRN PRN Reason: Migraine Headache Stop: 09/29/25 18:33 Last Admin: 08/30/25 19:41 Dose: 50 mg Documented By: WB Tuberculin PPD (Tuberculin Ppd Inj 5 Unit/0.1 Ml Dose) 5 unit ID X1 ONE Stop: 08/26/25 17:07 Tuberculin PPD (Tuberculin Ppd Inj 5 Unit/0.1 Ml Dose) 5 unit ID X1 ONE Stop: 08/27/25 10:01 Last Admin: 08/27/25 10:16 Dose: 5 unit Documented By: CP as above Consultations Consultation(s) initiated? (list below): Yes Diagnosis Shortness of Breath Differential Diagnosis: acute exacerbation of chronic obstructive airways disease, congestive heart failure, community acquired pneumonia, asthma with exacerbation and pulmonary embolism Most likely diagnosis given after review of the tests above:: pneumonia Admission Indicated Admission indicated?: indicated Admission Request Was there a request for admission?: Yes Admission Attestation Admission request attestation: Discussed case with [] from Hospitalist service regarding admission. Discussed patients ED course, exam findings, labs, and radiology results. The Hospitalist [agrees,declines] to accept the patient for admission. Disposition Plan Disposition Plan: Admit Discharge Plan Plan Patient Disposition: Admit Acute Care w/in Hospital Patient condition on transfer: Stable Problem List Clinical Impression: Pneumonia, Hypoxia
[2025-08-26 15:30] LABS: Alanine Aminotransferase 26 U/L (10-49); Albumin, Serum 4.2 gm/dL (3.5-5.0); Albumin/Globulin Ratio 1.6 (1.2-2.2); Alkaline Phosphatase 139 U/L (46-116); Anion Gap 11 (7-16); Aspartate Amino Transferase 28 U/L (0-34); BUN/Creatinine Ratio 19 Ratio (12-20); Basophils # (Auto) 0.0 Thou/mm3 (0.0-0.2); Basophils % (Auto) 0 % (0-2.5); Bilirubin,Total 0.9 mg/dL (0.3-1.2); Blood Urea Nitrogen 15 mg/dL (9-23); Calcium 8.6 mg/dL (8.3-10.6); Calcium (Corrected) 8.6 mg/dL (8.5-10.1); Carbon Dioxide 26.9 mMol/L (20.0-31.0); Chloride 99 mMol/L (98-107); Creatinine (Component) 0.8 mg/dL (0.6-1.3); Eosinophils # (Auto) 0.0 Thou/mm3 (0.0-0.5); Eosinophils % (Auto) 0 % (0-10); Estimated Creatinine Clearance 130.7 mL/min (>60); Globulin 2.7 gm/dL (2.3-3.5); Glucose 207 mg/dL (74-106); Hematocrit 37.9 % (41.0-53.0); Hemoglobin 12.4 g/dL (13.5-16.0); Immature Granulocytes Auto 0.10 Thou/mm3 (0.00-0.00); Lipase 35 U/L (12-53); Lymphocytes # (Auto) 0.7 Thou/mm3 (1.0-4.8); Lymphocytes % (Auto) 10 % (10-50); Magnesium 1.9 mg/dL (1.6-2.6); Mean Corpuscular HGB Conc 32.7 g/dl (31.0-37.0); Mean Corpuscular Hemoglobin 30.0 pg (25.0-35.0); Mean Corpuscular Volume 92 fL (80-100); Monocytes # (Auto) 0.2 Thou/mm3 (0.0-0.8); Monocytes % (Auto) 3 % (0-12); Neutrophils # (Auto) 5.8 Thou/mm3 (1.8-7.7); Neutrophils % (Auto) 85 % (37-80); Nucleated Red Blood Cell # 0.02 Thou/mm3 (0.00-0.00); Nucleated Red Blood Cell % 0 /100 WBC (0); Osmolality,Calculated 280 (275-295); Platelet Count 180 Thou/mm3 (140-440); Potassium 3.7 mMol/L (3.4-5.1); RDW Standard Deviation 47.8 fL (35.1-43.9); Red Blood Count 4.14 Miln/mm3 (4.50-5.90); Sodium 137 mMol/L (136-145); Total Protein 6.9 gm/dL (5.7-8.2); Troponin I < 0.020 ng/mL (0.0-0.045); White Blood Count 6.8 Thou/mm3 (3.8-10.6); eGFR > 60 See Note
[2025-08-26 15:39] LABS: INR 1.0 (0.9-1.3); Partial Thromboplastin Time 27.5 Seconds (22.0-36.0); Prothrombin Time 10.9 Seconds (9.0-12.2)
[2025-08-26 16:04] LABS: B-Type Natriuretic Peptide 34 pg/mL (0-100)
[2025-08-26 16:25] LABS: Lactate (Lactic Acid) 1.3 mMol/L (0.4-2.0)
--- NOTE | 2025-08-26 16:34 | ESHP_ITS ---
<Statement entered by Lex Harvey MD - 08/27/25 13:59> Patient was examined and case was reviewed with team including attending physician. Note reviewed, I agree with most of its contents and agree with the patient's care as documented by Dr. Sanchez 45y/o M with PMHx of chronic sciatica, traumatic brain injury, PTSD, cocci infection, and hypertension BIBA to the ED for shortness of breathe and dyspnea. Patient states he has had generalized malaise for about 1-2 weeks with associated dry non-productive cough. On however he started getting rapid progressive shortness of breath. He states he is unable to lay flat at all. His ADLs are limited at this time due to the increased work of breathing to the point that he cannot tolerate walking 20-30 steps without getting short of breath. Initially he called EMS who reported the patient being at 62% on room air and increased to 90% on 6L, the patient however wanted to not come to the hospital and told them to leave about 5 minutes after EMS leaves he calls them again because he was too short of breath. ED physician spoke to him on the phone and convinced him to come to the hospital. Patient will be admitted for AHRF and CAP. Patient will be started on IV Abx therapy and DuoNebs. Case discussed with my attending Dr. Maximiliano Harvey MD PGY-2 Disclaimer: Despite multiple revisions, due to the dictation software being used, the document bellow may not be free of grammatical errors including phonetic/typographic errors. However, this does not deter from our commitment to providing health care in the patient's best interest in mind. Documentation for date of: 08/26/25 HPI History of Present Illness Chief complaint: Shortness of Breath/Dyspnea History of present illness: Mr. Antunez is a 45M with history of chronic sciatica, TBI, PTSD, cocci infection, and hypertension BIBA to the ED for shortness of breathe and dyspnea. Patient stated for the last week, he started feeling generalized malaise with occasional cough, leading to shortness of breath and dyspnea with exertion on last week (08/17/25). He denied chest pain, palpitation, recent travel, hemotypsis, sick contact, unilateral swelling, diarrhea, however, does endorse orthopnea and dyspnea. He denied prior history of TB, and is up to date on flu and covid vaccines. 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 He was admitted for shortness of breath and dyspnea. ED Course In the ED, patient is satting 84% on RA. RR 33. Oxygen improved to 94% with 6L NC. WBC 6.8. Na 137. K 3.7. Canine Deputy 0.8. Lactate 1.3. Procalc 0.63. CXR revealed diffuse bilateral multifocal infiltrates involving all lung zones. He was treated empirically with azithromycin 500mg and ceftriaxone 1g in the ED. ROS * Constitutional: Resp distress, a/o x 3, + chill, sore throat. * GI: Denies nausea, vomiting, diarrhea, * CV: Denies chest pain or palpitations. * Resp: +SOB, dyspnea, orthopnea, cough. * : Denies dysuria, CVA tenderness, suprapubic tenderness. * Neuro: Denies dizziness, no focal deficits. Past Medical History * Cocci * Hypertension Social History * Lives at home, independent baseline. * Denies drug/alcohol/smoking. Surgical History * Hernia repair Allergies * Sulfa - hives Home Meds * lisinopril. Exam Vital Signs Temp Pulse Resp BP Pulse Ox O2 Del Method O2 Flow Rate 97.7 F 102 H 30 H 150/95 H 89 L Nasal Cannula 4 08/26/25 14:48 08/26/25 15:10 08/26/25 15:10 08/26/25 14:48 08/26/25 14:48 08/26/25 14:48 08/26/25 14:48 Narrative Exam General: Awake and in no acute distress. A/O x 3. HEENT: Normocephalic, atraumatic, mucous membranes dry. Oropharynx erythematous. Heart: Tachycardiac, normal sinus rhythm. Lungs: Crackles, diminished to bilateral lower lung ramon. Abdomen: Soft, nondistended, nontender. No guarding or rebound tenderness. Neurologic: Alert and oriented x3, no gross neurological deficit, and patient able to move all 4 extremities. Extremities: No pitting edema. Normal muscle tone. Scaling to right palm. Skin: No rash. No ecchymoses. Results: Labs 08/27/25 04:34 08/27/25 04:34 Labs: Short CBC 08/26/25 Range/Units 14:58 WBC 6.8 (3.8-10.6) Thou/mm3 Hgb 12.4 L (13.5-16.0) g/dL Hct 37.9 L (41.0-53.0) % Plt Count 180 (140-440) Thou/mm3 BMP 08/26/25 14:58 Sodium 137 Potassium 3.7 Chloride 99 Carbon Dioxide 26.9 BUN 15 Creatinine 0.8 Glucose 207 H Calcium 8.6 Cardiac Enzymes 08/26/25 Range/Units 14:58 Troponin I < 0.020 (0.0-0.045) ng/mL Liver Function 08/26/25 Range/Units 14:58 Total Bilirubin 0.9 (0.3-1.2) mg/dL AST 28 (0-34) U/L ALT 26 (10-49) U/L Alkaline Phosphatase 139 H (46-116) U/L Albumin 4.2 (3.5-5.0) gm/dL Quality Measures Quality Measures VTE prophylaxis Medications Home Medications and Allergies Home Medications ?Medication ?Instructions ?Recorded ?Confirmed ?Type baclofen 20 mg tablet 20 mg PO BID 07/15/25 History clonazepam 1 mg tablet 1 mg PO BID 07/15/25 5 History hydrochlorothiazide 12.5 mg tablet 12.5 mg PO QDAY 10/0808/26/25 History ibuprofen 800 mg tablet 400 mg PO TID PRN pain 07/1508/26/25 History paroxetine HCl 20 mg tablet 20 mg PO QDAY 07/15/25 History sumatriptan succinate 50 mg tablet 50 mg PO Q2H PRN mi graine headache 07/15/25 08/26/25 History albuterol sulfate 90 mcg/actuation 2 puff inhalation Q 4H PRN 08/26/25 08/26/25 History aerosol inhaler shortness of breath or wheez ing benzonatate 200 mg capsule 200 mg PO TID PRN cough 08/26/25 History cefdinir 300 mg capsule 300 mg PO Q12H 08/26/2508/14 History cyclobenzaprine 10 mg tablet 10 mg PO HS PRN spasms 08/26/25 History hydrocodone 5 mg-acetaminophen 325 1 tab PO Q12H PRN p ain 08/26/25 08/26/25 History mg tablet lisinopril 10 mg tablet 10 mg PO QDAY 08/26/2508/26 History pregabalin 25 mg capsule 25 mg PO Q12H 08/26/2508/26 History promethazine-DM 6.25 mg-15 mg/5 mL 5 ml PO Q4H PRN cou gh 08/26/25 08/26/25 History oral syrup Allergies Allergy/AdvReac Type Severity Reaction Status Date / Time Sulfa (Sulfonamide Allergy Severe Rash Verified 08/26/25 14:54 Antibiotics) Visit Medications Azithromycin 500 mg/ Sodium (Chloride) 250 mls @ 250 mls/hr IV X1 ONE Stop: 08/26/25 17:07 Ceftriaxone Sodium/Dextrose (Rocephin/D5w 1gm Iv Premix) 1 gm in 50 mls @ 100 mls/hr IV X1 ONE Stop: 08/26/25 16:37 Discontinued Medications Sodium Chloride (Sodium Chloride Rt 10% 15 Ml Nebu) 5 ml INH X1 ONE Stop: 08/26/25 16:02 Sodium Chloride (Sodium Chloride Rt 10% 15 Ml Nebu) 5 ml INH X1 ONE Stop: 08/26/25 16:02 Assessment & Plan Plan Mr. Antunez is a 45M with history chronic sciatica, TBI, PTSD, cocci infection, and hypertension admitted for shortness of breathe and dyspnea. #Shortness of breathe #Dyspnea #Community acquired pneumonia #Hx of cocci infection Satting at 84% on RA. Tachypnea. Initial CXR revealed diffuse bilateral multifocal infiltrates involving all lung zones. Received azithromycin and ceftriaxone in the ER. ABG: pH 7.47/PCO2 37/PHCO3 26/PO2 62 - Continue empiric abx azithromycin 250mg and ceftriaxone 1g (08/27 ~ 09/03) - Pending Bcx - Pending Sputum Cx - Pending COVID-19 PCR - Pending HIV-1 RNA - Pending Aspergillus Ag, Legionella Ag - Pending Cocci Serology IgM - Pending 1-3-B-D Glucan - Pending CTA Chest. #Hypertension - chronic medical problem - will restart home med after med recs #PTSD - chronic medical problem - will restart home med after med recs Health maintenance Dispo: pending cultures DVT prophylaxis: HEPARIN GI prophylaxis: N/A Antibiotics: ceftriaxone + azithromycin Bowel Regimen: N/A Diet: Regular diet Lines: Peripheral IV Code status: Full code Case discussed with my senior resident Dr. Carias Case discussed with my attending Dr. Maximiliano Sanchez, PGY 1 Attending Provider Attestation/Addendum I have seen and examined the patient. I was physically present for the [place] portions of the services provided including history, physical exam, diagnosis, treatment plans and orders. I agree with assessment and plan of care as documented by residents. After examination of the patient and review of the clinical data I feel that this patient needs admission to the hospital for further treatment/evaluation. Even though this this note was carefully revised there may still be minor errors in grounds worker due to voice recognition software. Noe Viera MD
--- NOTE | 2025-08-26 16:38 | XR_ITS ---
Examination: CTA chest with intravenous contrast 2-D reconstructions 3-D reconstructions, vascular Date and time of exam: August 27, 2025, 1600 hours, comparison July 13, 2025 INDICATIONS: Shortness of breath chest pain today CTDI: vol (mGy) 14.6 DLP: (mGycm) 446 Technique: Multiple axial sections of the thorax have been obtained. 3 mm slice thickness, from below the hemidiaphragms to above the apices of the lungs. Mediastinal and lung density settings have been obtained. 2-D sagittal and coronal reconstructions. 3-D angiographic renderings, 3-D volume renderings, 3D post processing, vascular maximum intensity projections obtained. Contrast administered is 100 cc [id number]-370. Low dose protocols were performed. One or more of the following dose reduction techniques were used; automated exposure control, adjustment of the mA and/or KV according to patient size, use of iterative reconstruction technique. Findings: 4 mm left thyroid nodule 20 mm right tracheobronchial lymph node, mild right hilar lymphadenopathy No thoracic aortic aneurysmal dilatation No pulmonary artery emboli Severe diffuse bilateral lung opacity No pneumothorax Liver enlarged, incompletely visualized, irregular in contour Splenomegaly AP dimension 13 cm No gallstones No pancreatic or adrenal mass Kidneys partially visualized no hydronephrosis Mild fluid distended small bowel loops Kyphosis dorsal spine secondary to chronic osteoporotic wedging mid dorsal vertebral bodies IMPRESSION: 4 mm left thyroid nodule Negative for pulmonary artery emboli Severe diffuse pneumonia/ARDS pattern bilaterally Hepatomegaly, cirrhosis versus primary palisading disease Mild splenomegaly
[2025-08-26 16:44] LABS: Base Excess 3 (-3-3); HCO3 26 mEq/L (20-26); Inspired Oxygen, FIO2 21 %; O2 Saturation 93 % (91-98); PCO2 37 mmHg (32.0-48.0); PO2 62 mmHg (83-108); pH, Arterial 7.47 (7.35-7.45)
[2025-08-26 16:46] LABS: Allen Test Performed/OK; Puncture Site Right Radial
[2025-08-26] MEDS: cefTRIAXone/D5w 1gm IV premix 1 GM/50 ML BAG IV (16:50)
[2025-08-26] MEDS: AZITHROMYCIN INJ 500 MG in SODIUM CHLORIDE 0.9% 250 ML 250 ML 250 MG IV (16:51)
[2025-08-26 17:06] LABS: Procalcitonin 0.63 ng/ml (0.0-0.49)
[2025-08-26 17:16] LABS: HIV (1&2) Antibody Rapid Non-Reactive
[2025-08-26 17:21] LABS: Collection Type, Urine Clean Catch
[2025-08-26 17:30] LABS: Bacteria,Urine Rare; Bilirubin,Urine 1+ (Negative); Blood,Urine Negative (Negative); Budding Yeast,Urine Present; Clarity,Urine Clear (Clear/Hazy); Color,Urine Yellow (Lt Yel-Yel); Culture Indicated,Urine Not Indicated; Glucose, Urine 4+ (Negative); Ketones,Urine 4+ (Negative); Leukocyte Esterase,Urine Negative (Negative); Nitrite,Urine Negative (Negative); PH,Urine 7.5 (5.0-7.0); Protein,Urine 2+ (Neg - Trace); RBC,Urine 1 /hpf (0-3); Specific Gravity,Urine 1.042 (1.001-1.035); Squamous Epithelial Cell,Urine < 1 /hpf (0-5); Urobilinogen,Urine 8.0 mg/dL (0.0-1.0); WBC,Urine 1 /hpf (0-5)
[2025-08-26 17:34] LABS: Amphetamine/Methamp Scrn,U Negative (Negative); Barbiturate Screen,Urine Negative (Negative); Benzodiazepines Screen,Urine Negative (Negative); Benzoylecgonine Screen, Ur Negative (Negative); Fentanyl Screen,Urine Negative (Negative); Opiate Screen,Urine Positive (Negative); THC Screen,Urine Positive (Negative)
--- NOTE | 2025-08-26 18:37 | PC.NURSE ---
informed dr pastor patient was unable to tolerate ct scan due to coughing and SOB
[2025-08-26 22:36] LABS: LDH (Lactate Dehydrogenase) 639 U/L (120-246)
[2025-08-26 23:08] LABS: Respiratory Syncytial Virus Ag Negative (Negative)
[2025-08-27] VITALS (11 sets, daily range): BP systolic 134–151; BP diastolic 74–97; PULSE 87–125; RESP 18–30; TEMP 36.1–36.5; O2SAT 92–99; BMI 24.1
[2025-08-27] MEDS: HYDROcodone/APAP 5/325 TABLET 1 TAB PO ×3 (00:39→21:20)
[2025-08-27] MEDS: PROMETHAZINE/DM SYRUP 5 ML DOSE PO (04:02)
[2025-08-27 05:35] LABS: Basophils # (Auto) 0.0 Thou/mm3 (0.0-0.2); Basophils % (Auto) 0 % (0-2.5); Eosinophils # (Auto) 0.0 Thou/mm3 (0.0-0.5); Eosinophils % (Auto) 0 % (0-10); Hematocrit 34.2 % (41.0-53.0); Hemoglobin 11.3 g/dL (13.5-16.0); Immature Granulocytes Auto 0.09 Thou/mm3 (0.00-0.00); Lymphocytes # (Auto) 0.8 Thou/mm3 (1.0-4.8); Lymphocytes % (Auto) 11 % (10-50); Mean Corpuscular HGB Conc 33.0 g/dl (31.0-37.0); Mean Corpuscular Hemoglobin 30.2 pg (25.0-35.0); Mean Corpuscular Volume 91 fL (80-100); Monocytes # (Auto) 0.3 Thou/mm3 (0.0-0.8); Monocytes % (Auto) 5 % (0-12); Neutrophils # (Auto) 6.0 Thou/mm3 (1.8-7.7); Neutrophils % (Auto) 83 % (37-80); Nucleated Red Blood Cell # 0.00 Thou/mm3 (0.00-0.00); Nucleated Red Blood Cell % 0 /100 WBC (0); Platelet Count 172 Thou/mm3 (140-440); RDW Standard Deviation 47.8 fL (35.1-43.9); Red Blood Count 3.74 Miln/mm3 (4.50-5.90); White Blood Count 7.2 Thou/mm3 (3.8-10.6)
[2025-08-27 05:54] LABS: Alanine Aminotransferase 20 U/L (10-49); Albumin, Serum 4.0 gm/dL (3.5-5.0); Albumin/Globulin Ratio 1.6 (1.2-2.2); Alkaline Phosphatase 128 U/L (46-116); Anion Gap 13 (7-16); Aspartate Amino Transferase 23 U/L (0-34); BUN/Creatinine Ratio 21 Ratio (12-20); Bilirubin,Total 0.9 mg/dL (0.3-1.2); Blood Urea Nitrogen 15 mg/dL (9-23); Calcium 8.5 mg/dL (8.3-10.6); Calcium (Corrected) 8.5 mg/dL (8.5-10.1); Carbon Dioxide 25.0 mMol/L (20.0-31.0); Chloride 99 mMol/L (98-107); Creatinine (Component) 0.7 mg/dL (0.6-1.3); Estimated Creatinine Clearance 149.3 mL/min (>60); Globulin 2.5 gm/dL (2.3-3.5); Glucose 208 mg/dL (74-106); Magnesium 1.9 mg/dL (1.6-2.6); Osmolality,Calculated 280 (275-295); Phosphorous 2.7 mg/dL (2.4-5.1); Potassium 4.0 mMol/L (3.4-5.1); Sodium 137 mMol/L (136-145); Total Protein 6.5 gm/dL (5.7-8.2); eGFR > 60 See Note
[2025-08-27] MEDS: BACLOFEN 10 MG TABLET 20 MG PO ×2 (10:02→21:01)
[2025-08-27] MEDS: PREGABALIN 25 MG CAPSULE PO ×2 (10:04→21:01)
[2025-08-27] MEDS: HEPARIN SOD INJ 5000 UNIT/ML VIAL SC ×2 (10:04→21:02)
[2025-08-27] MEDS: TUBERCULIN PPD INJ 5 UNIT/0.1 ML DOSE ID (10:16)
--- NOTE | 2025-08-27 12:14 | ESPR_ITS ---
Documentation for date of: 08/27/25 Subjective Subjective Interval history: Mr. Antunez is a 45M with history of chronic sciatica, TBI, PTSD, cocci infection, and hypertension BIBA to the ED for shortness of breathe and dyspnea. He started feeling generalized malaise with occasional cough on last week (08/17/25). He denied chest pain, palpitation, recent travel, hemotypsis, sick contact, unilateral swelling, diarrhea. He denied prior history of TB, and is up to date on flu and covid vaccines. 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 CXR revealed diffuse bilateral multifocal infiltrates involving all lung zones. He was admitted for shortness of breath and dyspnea. 08/27/25: NAOE. Patient could not tolerate CTA Chest yesterday due to orthopnea and anxiety. Will reattempt CT scan today. His oxygen status had improved to 94% on 3L NC with abx treatment. LDH was found to be markly elevated. At this time, still pedning Bcx and sputum culture. AFB sputum cultured ordered for TB r/o given his high risk. Exam Vital Signs Temp Pulse Resp BP Pulse Ox O2 Del Method O2 Flow Rate 96.9 F 104 H 20 150/74 H 95 Nasal Cannula 3 08/27/25 08:00 08/27/25 10:03 08/27/25 08:00 08/27/25 10:03 08/27/25 08:00 08/27/25 08:00 08/27/25 08:00 Narrative Exam General: Awake and in no acute distress. A/O x 3. HEENT: Normocephalic, atraumatic. Heart: RRR, no M/R/G. Lungs: Crackles bilateral lower lung ramon. Abdomen: Soft, nondistended, nontender. No guarding or rebound tenderness. Neurologic: Alert and oriented x3, no gross neurological deficit, and patient able to move all 4 extremities. Extremities: No pitting edema. Normal muscle tone. Scaling to right palm. Skin: No rash. No ecchymoses. Objective Labs 08/27/25 04:34 08/27/25 04:34 Labs: Laboratory Results - last 24 hr 08/26/25 08/26/25 08/26/25 14:58 16:10 16:40 WBC 6.8 RBC 4.14 L Hgb 12.4 L Hct 37.9 L MCV 92 MCH 30.0 MCHC 32.7 RDW Std Deviation 47.8 H Plt Count 180 Neut % (Auto) 85 H Lymph % (Auto) 10 [place] % (Auto) 3 Eos % (Auto) 0 Baso % (Auto) 0 Neut # (Auto) 5.8 Lymph # (Auto) 0.7 L [place] # (Auto) 0.2 Eos # (Auto) 0.0 Baso # (Auto) 0.0 Immature Gran # (Auto) 0.10 H Absolute Nucleated RBC 0.02 H Immature Gran % 2 H Nucleated RBC % 0 PT 10.9 INR 1.0 APTT 27.5 Puncture Site Right Radial ABG pH 7.47 H ABG pCO2 37 ABG pO2 62 L ABG HCO3 26 ABG O2 Saturation 93 ABG Base Excess 3 FiO2 21 Sodium 137 Potassium 3.7 Chloride 99 Carbon Dioxide 26.9 Anion Gap 11 BUN 15 Creatinine 0.8 Estim Creat Clear Calc 130.7 eGFR > 60 BUN/Creatinine Ratio 19 Glucose 207 H Calculated Osmolality 280 Lactic Acid 1.3 Calcium 8.6 Corrected Calcium 8.6 Phosphorus Magnesium 1.9 Total Bilirubin 0.9 AST 28 ALT 26 Alkaline Phosphatase 139 H Lactate Dehydrogenase 639 H Troponin I < 0.020 B-Natriuretic Peptide 34 Total Protein 6.9 Albumin 4.2 Globulin 2.7 Albumin/Globulin Ratio 1.6 Lipase 35 Procalcitonin 0.63 H Ur Collection Type Urine Color Urine Clarity Urine pH Ur Specific [place] Urine Protein Urine Glucose (UA) Urine Ketones Urine Blood Urine Nitrite Urine Bilirubin Urine Urobilinogen (Auto) Ur Leukocyte Esterase Urine RBC Urine WBC Ur Squamous Epith Cells Urine Bacteria Urine Yeast (Budding) Ur Culture Indicated? Urine Opiates Screen Urine Fentanyl Screen Ur Barbiturates Screen U Amphetamin/Meth Scrn U Benzodiazepines Scrn U Cocaine Metab Screen U Marijuana (THC) Screen HIV 1&2 Antibody Rapid Non-Reactive RSV Rapid 08/26/25 08/26/25 08/27/25 17:15 21:56 04:34 WBC 7.2 RBC 3.74 L Hgb 11.3 L Hct 34.2 L MCV 91 MCH 30.2 MCHC 33.0 RDW Std Deviation 47.8 H Plt Count 172 Neut % (Auto) 83 H Lymph % (Auto) 11 [place] % (Auto) 5 Eos % (Auto) 0 Baso % (Auto) 0 Neut # (Auto) 6.0 Lymph # (Auto) 0.8 L [place] # (Auto) 0.3 Eos # (Auto) 0.0 Baso # (Auto) 0.0 Immature Gran # (Auto) 0.09 H Absolute Nucleated RBC 0.00 Immature Gran % 1 H Nucleated RBC % 0 PT INR APTT Puncture Site ABG pH ABG pCO2 ABG pO2 ABG HCO3 ABG O2 Saturation ABG Base Excess FiO2 Sodium 137 Potassium 4.0 Chloride 99 Carbon Dioxide 25.0 Anion Gap 13 BUN 15 Creatinine 0.7 Estim Creat Clear Calc 149.3 eGFR > 60 BUN/Creatinine Ratio 21 H Glucose 208 H Calculated Osmolality 280 Lactic Acid Calcium 8.5 Corrected Calcium 8.5 Phosphorus 2.7 Magnesium 1.9 Total Bilirubin 0.9 AST 23 ALT 20 Alkaline Phosphatase 128 H Lactate Dehydrogenase Troponin I B-Natriuretic Peptide Total Protein 6.5 Albumin 4.0 Globulin 2.5 Albumin/Globulin Ratio 1.6 Lipase Procalcitonin Ur Collection Type Clean Catch Urine Color Yellow Urine Clarity Clear Urine pH 7.5 H Ur Specific [place] 1.042 H Urine Protein 2+ A Urine Glucose (UA) 4+ A Urine Ketones 4+ A Urine Blood Negative Urine Nitrite Negative Urine Bilirubin 1+ A Urine Urobilinogen (Auto) 8.0 Ur Leukocyte Esterase Negative Urine RBC 1 Urine WBC 1 Ur Squamous Epith Cells < 1 Urine Bacteria Rare Urine Yeast (Budding) Present A Ur Culture Indicated? Not Indicated Urine Opiates Screen Positive A Urine Fentanyl Screen Negative Ur Barbiturates Screen Negative U Amphetamin/Meth Scrn Negative U Benzodiazepines Scrn Negative U Cocaine Metab Screen Negative U Marijuana (THC) Screen Positive A HIV 1&2 Antibody Rapid RSV Rapid Negative ABG Interpretation ABG results: 08/26/25 16:40 ABG pH 7.47 H ABG pCO2 37 ABG pO2 62 L ABG HCO3 26 ABG O2 Saturation 93 ABG Base Excess 3 Quality Measures Quality Measures VTE prophylaxis Assessment & Plan Assessment Current Active Medications: Generic Name Dose Route Start Last Admin Trade Name Freq PRN Reason Stop Dose Admin Acetaminophen 650 mg 08/26/25 16:34 Acetaminophen 325 Mg Tablet PO 09/25/25 16:33 Q6H PRN Fever >101.5 Hydrocodone Bitart/Acetaminophen 1 tab 08/27/25 09:38 08/27/25 10:15 Hydrocodone/Apap 5/325 Tablet PO 09/01/25 09:37 1 tab Q6HR PRN Administration PAIN SCALE 4-10(Mod-Sev Baclofen 20 mg 08/27/25 09:45 08/27/25 10:02 Baclofen 10 Mg Tablet PO 09/26/25 09:44 20 mg BID KRYSTAL Administration Dextrose 25 ml 08/26/25 18:19 Dextrose 50%-Water Inj 50 Ml Syringe IV 09/25/25 18:18 Q15MIN PRN BG 50-70 responsive npo pt Dextrose 50 ml 08/26/25 18:19 Dextrose 50%-Water Inj 50 Ml Syringe IV 09/25/25 18:18 Q15MIN PRN BG <50 OR BG <70 & pt unresponsive Glucagon 1 mg 08/26/25 18:19 Glucagon Inj 1 Mg Vial IM Q15MIN PRN BG <70, and no IV access Heparin Sodium (Porcine) 5,000 unit 08/26/25 21:00 08/27/25 10:04 Heparin Sod Inj 5000 Unit/Ml Vial SC 09/09/25 20:59 5,000 unit BID KRYSTAL Administration Hydrochlorothiazide 12.5 mg 08/27/25 09:45 08/27/25 10:03 Hydrochlorothiazide 12.5 Mg Capsule PO 09/26/25 09:44 12.5 mg QDAY KRYSTAL Administration Ceftriaxone Sodium/Dextrose 1 gm in 50 mls @ 100 mls/hr 08/27/25 21:00 Rocephin/D5w 1gm Iv Premix IV 09/03/25 20:59 HS [facility] Azithromycin 250 mg/ Sterile 252.5 mls @ 252.5 mls/hr 08/27/25 21:00 Water 2.5 ml/ Sodium Chloride IV 09/03/25 20:59 HS [facility] Insulin Human Lispro 0 unit 08/27/25 07:30 08/27/25 09:59 Insulin Lispro (Admelog) 1 Unit/0.01 Ml Unit SC 09/26/25 07:[address] [facility] Protocol Lisinopril 10 mg 08/27/25 09:00 08/27/25 10:03 Lisinopril 2.5 Mg Tablet PO 09/26/25 08:59 10 mg QDAY KRYSTAL Administration Melatonin 6 mg 08/27/25 21:00 Melatonin 3 Mg Tablet PO 09/26/25 20:59 HS [facility] Pregabalin 25 mg 08/27/25 09:45 08/27/25 10:04 Pregabalin 25 Mg Capsule PO 09/26/25 09:44 25 mg BID [facility] Administration Plan Mr. Antunez is a 45M with history chronic sciatica, TBI, PTSD, cocci infection, and hypertension admitted for shortness of breathe and dyspnea. #Shortness of breathe #Dyspnea #Community acquired pneumonia #Hx of cocci infection Satting at 84% on RA. Tachypnea. Initial CXR revealed diffuse bilateral multifocal infiltrates involving all lung zones. Received azithromycin and ceftriaxone in the ER. ABG: pH 7.47/PCO2 37/PHCO3 26/PO2 62 - Continue empiric abx azithromycin 250mg and ceftriaxone 1g (08/27 ~ 09/03) - Duoneb Q4HRRT - Pending Bcx - Pending Sputum Cx - Pending COVID-19 PCR - Pending HIV-1 RNA - Pending Aspergillus Ag, Legionella Ag - Pending Cocci Serology IgM - Pending 1-3-B-D Glucan - Pending CTA Chest. #Hypertension - chronic medical problem - Continue home HCTZ, lisinopril #PTSD #Anxiety - chronic medical problem - Continue home clonazepam #Chronic sciatica - Continue home baclofen, pregabalin - [place] Q6H PRN Health maintenance Dispo: pending cultures, serology DVT prophylaxis: HEPARIN GI prophylaxis: N/A Antibiotics: ceftriaxone + azithromycin Bowel Regimen: N/A Diet: Diet Carb consistent low. Lines: Peripheral IV Code status: Full code Case discussed with my attending Dr. Maximiliano Drew [facility], DO PGY 1 Attending Provider Attestation/Addendum I have seen and examined the patient. I was physically present for the [place] portions of the services provided including history, physical exam, diagnosis, treatment plans and orders. I agree with assessment and plan of care as documented by residents. Patient seen and examined at bedside this morning. Continues to complain of shortness of breath and tiredness. Continues to be on IV azithromycin and Rocephin. Was unable to complete CTA yesterday, we will try again with IV Ativan. Saturating well on nasal cannula. Lab results are mostly stable. HIV was negative COVID, flu. Pending, along with Legionella study glucan and cocci serology. Even though this this note was carefully revised there may still be minor errors in phone specialist due to voice recognition software. Noe Viera MD
[2025-08-27] MEDS: ALBUTEROL/IPRATROPIUM (Duoneb) RT SOL 3 ML NEBU INH ×3 (15:16→23:54)
[2025-08-27 15:22] LABS: Cocci Serology, IgM Negative (Negative)
[2025-08-27 17:10] LABS: Cult AFB Sendout- Sputum* See Sep Rpt
[2025-08-27] MEDS: cefTRIAXone/D5w 1gm IV premix 1 GM/50 ML BAG IV (21:01)
[2025-08-27] MEDS: MELATONIN 3 MG TABLET 6 MG PO (21:01)
[2025-08-27] MEDS: AZITHROMYCIN INJ 250 MG, Sterile Water 2.5 ML in SODIUM CHLORIDE 0.9% 250 ML 250 ML 252.5 MG IV (21:20)
[2025-08-28] VITALS (13 sets, daily range): BP systolic 126–139; BP diastolic 80–91; PULSE 69–113; RESP 18–30; TEMP 36.2–36.9; O2SAT 92–98; BMI 24.0
[2025-08-28 01:25] LABS: Cult AFB Sendout- Sputum* See Sep Rpt
[2025-08-28] MEDS: ALBUTEROL/IPRATROPIUM (Duoneb) RT SOL 3 ML NEBU INH ×4 (03:01→19:55)
--- NOTE | 2025-08-28 03:08 | PC.RT ---
AFB collected at 0100 lab received.
[2025-08-28 06:27] LABS: Basophils # (Auto) 0.0 Thou/mm3 (0.0-0.2); Basophils % (Auto) 0 % (0-2.5); Eosinophils # (Auto) 0.0 Thou/mm3 (0.0-0.5); Eosinophils % (Auto) 0 % (0-10); Hematocrit 33.6 % (41.0-53.0); Hemoglobin 11.2 g/dL (13.5-16.0); Immature Granulocytes Auto 0.17 Thou/mm3 (0.00-0.00); Lymphocytes # (Auto) 0.8 Thou/mm3 (1.0-4.8); Lymphocytes % (Auto) 10 % (10-50); Mean Corpuscular HGB Conc 33.3 g/dl (31.0-37.0); Mean Corpuscular Hemoglobin 30.0 pg (25.0-35.0); Mean Corpuscular Volume 90 fL (80-100); Monocytes # (Auto) 0.5 Thou/mm3 (0.0-0.8); Monocytes % (Auto) 6 % (0-12); Neutrophils # (Auto) 6.8 Thou/mm3 (1.8-7.7); Neutrophils % (Auto) 82 % (37-80); Nucleated Red Blood Cell # 0.00 Thou/mm3 (0.00-0.00); Nucleated Red Blood Cell % 0 /100 WBC (0); Platelet Count 183 Thou/mm3 (140-440); RDW Standard Deviation 46.4 fL (35.1-43.9); Red Blood Count 3.73 Miln/mm3 (4.50-5.90); White Blood Count 8.3 Thou/mm3 (3.8-10.6)
[2025-08-28 06:51] LABS: Quantiferon-TB* See Sep Rpt
[2025-08-28 07:02] LABS: Alanine Aminotransferase 14 U/L (10-49); Albumin, Serum 4.0 gm/dL (3.5-5.0); Albumin/Globulin Ratio 1.6 (1.2-2.2); Alkaline Phosphatase 117 U/L (46-116); Anion Gap 13 (7-16); Aspartate Amino Transferase 18 U/L (0-34); BUN/Creatinine Ratio 19 Ratio (12-20); Bilirubin,Total 0.7 mg/dL (0.3-1.2); Blood Urea Nitrogen 13 mg/dL (9-23); Calcium 8.5 mg/dL (8.3-10.6); Calcium (Corrected) 8.5 mg/dL (8.5-10.1); Carbon Dioxide 26.3 mMol/L (20.0-31.0); Chloride 98 mMol/L (98-107); Creatinine (Component) 0.7 mg/dL (0.6-1.3); Estimated Creatinine Clearance 149.3 mL/min (>60); Globulin 2.5 gm/dL (2.3-3.5); Glucose 190 mg/dL (74-106); Magnesium 1.8 mg/dL (1.6-2.6); Osmolality,Calculated 278 (275-295); Phosphorous 3.6 mg/dL (2.4-5.1); Potassium 3.3 mMol/L (3.4-5.1); Sodium 137 mMol/L (136-145); Total Protein 6.5 gm/dL (5.7-8.2); eGFR > 60 See Note
--- NOTE | 2025-08-28 08:12 | ECHO_ITS ---
Patient Info Name: Ashish Antunez Age: 45 years : 1980 Gender: Male Ht: 183 cm Wt: 81 kg BSA: 2.03 m2 BP: 129 / 80 mmHg HR: 97 bpm Exam Date: 08/28/2025 9:14 AM Admit Date: 08/26/2025 Site: [facility] Patient Status: I Exam Type: CA echo doppler complete Buckle And Button Maker: Della Cedillo Ordering Physician: Lex Harvey Study Info Indications PAH - Primary Location: [id number] Left Ventricular Outflow Tract Name Value Normal LVOT 2D LVOT Diameter 1.9 cm LVOT Doppler LVOT Peak Velocity 122 cm/s LVOT Mean Gradient 3 mmHg LVOT VTI 22 cm LVOT Stroke Volume 63 ml Pulmonic Valve Name Value Normal PV Doppler PV Peak Velocity 143 cm/s Mitral Valve Name Value Normal MV Doppler MV Decel [place] 538 cm/s2 MV PHT 35 ms MV Area (PHT) 6.3 cm2 4.0-5.0 MV Diastolic Function MV E Peak Velocity 65 cm/s MV A Peak Velocity 78 cm/s MV E/A 0.8 MV Annular TDI MV Lateral e' Velocity 7.9 cm/s MV E/e' (Lateral) 8.1 Tricuspid Valve Name Value Normal TV Regurgitation Doppler TR Peak Velocity 217 cm/s Estimated PAP/RSVP RA Pressure 3 mmHg <=5 PA Systolic Pressure 22 mmHg <36 RV Systolic Pressure 22 mmHg <36 Aortic Valve Name Value Normal AV 2D/MM AV Cusp Sep (MM) 1.6 cm AV Regurgitation 2D LVOT Area 2.8 cm2 Ventricles Name Value Normal LV Dimensions 2D/MM IVS Diastolic Thickness (2D) 0.8 cm 0.6-1.0 LVID Diastole (2D) 4.7 cm 4.2-5.8 LVIW Diastolic Thickness (2D) 1.3 cm 0.6-1.0 LVID Systole (2D) 3.5 cm 2.5-4.0 LVOT Diameter 1.9 cm LV Mass (2D Cubed) 175.83 g 88.00-224.00 LV Mass Index (2D Cubed) 87 g/m2 49-115 Relative Wall Thickness (2D) 0.55 <=0.42 IVS/LVIW Diastolic Thickness (2D) 0.62 0.00-1.50 LV Fractional Shortening/Ejection Fraction 2D/MM LV Fractional Shortening (2D) 26 % 25-43 LV EF (2D Teichholz) 50 % Left Ventricle Left ventricular chamber dimension is normal. Left ventricular systolic function is normal with visually estimated ejection fraction of 60-65%. There is concentric remodeling noted in the left ventricle. Left ventricular segmental wall motion is normal. There is grade I diastolic dysfunction in the left ventricle. Right Ventricle Right ventricular chamber dimension is normal. Right ventricular systolic function is normal. Left Atrium Left atrial chamber dimension is normal. Right Atrium Right atrial chamber dimension is normal. Aortic Valve The aortic valve is trileaflet. There is no aortic valve sclerosis. There is no aortic valve stenosis. There is no aortic valve regurgitation. Pulmonic Valve The pulmonic valve is normal. There is no pulmonic valve stenosis. There is no pulmonic regurgitation. Mitral Valve The mitral valve has normal leaflets. There is no mitral valve stenosis. There is trace mitral valve regurgitation. Tricuspid Valve The tricuspid valve leaflets are normal. There is no tricuspid valve stenosis. There is trace tricuspid valve regurgitation. No pulmonary hypertension, estimated pulmonary arterial systolic pressure is 22 mmHg and systemic blood pressure of 129 mmHg in systole. Pericardium/Pleural The pericardium appears normal. There is trivial pericardial effusion with no tamponade. No pleural effusion visualized. Inferior Vena Cava Normal inferior vena cava with >50% collapse upon inspiration consistent with normal right atrial pressure, 3 mmHg. Aorta The aortic measurements are indexed to age and body surface area. The aortic root at the sinus of Valsalva is not well visualized. The prox ascending aorta is not well visualized. Summary 1. Left ventricle size is normal and systolic function is normal. Estimated ejection fraction is 60-65%. There is grade I diastolic dysfunction. 2. Right ventricle chamber size is normal and systolic function is normal. Estimated RVSP is 22 mmHg. 3. There is trace mitral and tricuspid valve regurgitation. 4. There is trivial pericardial effusion with no tamponade. 5. No evidence of PAH. Prior Cardiovascular Procedures Transthoracic Echocardiogram: Yes Date of Previous TTE: 06/2025 Report Signatures Finalized by Jayjay Chaves on 08/28/2025 01:16 PM
[2025-08-28] MEDS: PREGABALIN 25 MG CAPSULE PO ×2 (08:20→20:57)
[2025-08-28] MEDS: BACLOFEN 10 MG TABLET 20 MG PO ×2 (08:20→20:56)
[2025-08-28] MEDS: HEPARIN SOD INJ 5000 UNIT/ML VIAL SC ×2 (08:21→20:57)
[2025-08-28 08:47] LABS: Path Review Blood Smear Sent to Pathologist
--- NOTE | 2025-08-28 09:30 | ESPR_ITS ---
<Statement entered by Amy Osborn MD - 09/07/25 08:24> I reviewed above note and agree with findings and plans. I have also personally examined the patient with medicine team and went over assessment and plan with medical team including financial services internship and resident physician. <Statement entered by Lex Harvey MD - 08/28/25 18:52> Patient was examined and case was reviewed with team including attending physician. Note reviewed, I agree with most of its contents and agree with the patient's care as documented by Dr. Parra Patient seen today at the bedside found awake, alert, orientedx3. No overnight events reported. Vital signs and labs reviewed. Oxygen demand have decreased, currently on 2L NC with 96% saturation. Patient was able to get Chest CTA which showed diffuse pneumonia, possibly ARDS pattern possibly in the setting of influenza/covid, however tests have been negative so far, confirmatiories pending at this time. He does have prior history of cocci, test currently pending. Infectious disease specialist recommended starting on fluconazole as precuation while test results come back. MARV, AFBs, COTY ordered to r/o other causes such as autoimmune etiology. Echocardiogram with normal EF 60-65% no evidence of PAH. Will continue with IV antibiotics at this time as well as antifungal for possible cocci as per ID. Case discussed with my attending Dr. Anurag Harvey MD PGY-2 Documentation for date of: 08/28/25 Subjective Subjective Interval history: Mr. Antunez is a 45M with history of chronic sciatica, TBI, PTSD, cocci infection, and hypertension BIBA to the ED for shortness of breathe and dyspnea. He started feeling generalized malaise with occasional cough on last week (08/17/25). He denied chest pain, palpitation, recent travel, hemotypsis, sick contact, unilateral swelling, diarrhea. He denied prior history of TB, and is up to date on flu and covid vaccines. 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 CXR revealed diffuse bilateral multifocal infiltrates involving all lung zones. He was admitted for shortness of breath and dyspnea. 08/27/25: NAOE. Patient could not tolerate CTA Chest yesterday due to orthopnea and anxiety. Will reattempt CT scan today. His oxygen status had improved to 94% on 3L NC with abx treatment. LDH was found to be markly elevated. At this time, still pedning Bcx and sputum culture. AFB sputum cultured ordered for TB r/o given his high risk. 08/28/25: NAOE. Oxygen demand decreased, currently on 2L NC with 96% saturation. CTA chest revealed severe diffuse pneumonia vs ARDS pattern bilaterally. Echocardiogram showed normal LV size and normal systolic function, LVEF 60-65%, no evidence of PAH. CT cervial spine from 08/12/25 revealed normal apical lung zones, unsure what's causing the rapid progression of patient's pneumonia/ARDS. Investigate autoimmune causes today (a-1 antitrypsin, MARV, COTY ordered). Started solumetrol 60mg BID today. Exam Vital Signs Temp Pulse Resp BP Pulse Ox O2 Del Method O2 Flow Rate 98.1 F 94 18 139/91 H 93 L Nasal Cannula 2 08/28/25 08:00 08/28/25 08:21 08/28/25 08:00 08/28/25 08:21 08/28/25 08:00 08/28/25 08:00 08/28/25 08:00 Narrative Exam General: Awake and in no acute distress. A/O x 3. On 2L NC. HEENT: Normocephalic, atraumatic Heart: Regular rate and rhythm Lungs: Crackles to lower lung zones. Increased work of breathing, orthopnea. Abdomen: Soft, nondistended, nontender. No guarding or rebound tenderness. Neurologic: Alert and oriented x3, no gross neurological deficit, and patient able to move all 4 extremities. Extremities: No pitting edema in lower extremities. Skin: No rash. No ecchymoses. Objective Labs 08/28/25 05:42 08/28/25 05:42 Labs: Laboratory Results - last 24 hr 08/26/25 08/28/25 16:10 05:42 WBC 8.3 RBC 3.73 L Hgb 11.2 L Hct 33.6 L MCV 90 MCH 30.0 MCHC 33.3 RDW Std Deviation 46.4 H Plt Count 183 Neut % (Auto) 82 H Lymph % (Auto) 10 [place] % (Auto) 6 Eos % (Auto) 0 Baso % (Auto) 0 Neut # (Auto) 6.8 Lymph # (Auto) 0.8 L [place] # (Auto) 0.5 Eos # (Auto) 0.0 Baso # (Auto) 0.0 Immature Gran # (Auto) 0.17 H Absolute Nucleated RBC 0.00 Immature Gran % 2 H Nucleated RBC % 0 Smear Path Review Sent to Pathologist Sodium 137 Potassium 3.3 L D Chloride 98 Carbon Dioxide 26.3 Anion Gap 13 BUN 13 Creatinine 0.7 Estim Creat Clear Calc 149.3 eGFR > 60 BUN/Creatinine Ratio 19 Glucose 190 H Calculated Osmolality 278 Calcium 8.5 Corrected Calcium 8.5 Phosphorus 3.6 Magnesium 1.8 Total Bilirubin 0.7 AST 18 ALT 14 Alkaline Phosphatase 117 H Total Protein 6.5 Albumin 4.0 Globulin 2.5 Albumin/Globulin Ratio 1.6 Coccidioides IgM Ab Negative ABG Interpretation ABG results: 08/26/25 16:40 ABG pH 7.47 H ABG pCO2 37 ABG pO2 62 L ABG HCO3 26 ABG O2 Saturation 93 ABG Base Excess 3 Quality Measures Quality Measures VTE prophylaxis Assessment & Plan Assessment Current Active Medications: Generic Name Dose Route Start Last Admin Trade Name Freq PRN Reason Stop Dose Admin Acetaminophen 650 mg 08/26/25 16:34 Acetaminophen 325 Mg Tablet PO 09/25/25 16:33 Q6H PRN Fever >101.5 Hydrocodone Bitart/Acetaminophen 1 tab 08/27/25 09:38 08/27/25 21:20 Hydrocodone/Apap 5/325 Tablet PO 09/01/25 09:37 1 tab Q6HR PRN Administration PAIN SCALE 4-10(Mod-Sev Albuterol/Ipratropium 3 ml 08/27/25 15:00 08/28/25 07:36 Albuterol/Ipratropium (Duoneb) Rt Alecia 3 Ml Nebu INH 09/26/25 14:59 Not Given Q4HRRT KRYSTAL Albuterol/Ipratropium 3 ml 08/27/25 14:00 Albuterol/Ipratropium (Duoneb) Rt [place] 3 Ml Nebu INH 09/26/25 13:59 Q2HR PRN SHORTNESS OF BREATH OR WHEEZE Baclofen 20 mg 08/27/25 09:45 08/28/25 08:20 Baclofen 10 Mg Tablet PO 09/26/25 09:44 20 mg BID KRYSTAL Administration Clonazepam 1 mg 08/28/25 10:00 Clonazepam 0.5 Mg Tablet PO 09/02/25 09:59 BID KRYSTAL Dextrose 25 ml 08/26/25 18:19 Dextrose 50%-Water Inj 50 Ml Syringe IV 09/25/25 18:18 Q15MIN PRN BG 50-70 responsive npo pt Dextrose 50 ml 08/26/25 18:19 Dextrose 50%-Water Inj 50 Ml Syringe IV 09/25/25 18:18 Q15MIN PRN BG <50 OR BG <70 & pt unresponsive Glucagon 1 mg 08/26/25 18:19 Glucagon Inj 1 Mg Vial IM Q15MIN PRN BG <70, and no IV access Heparin Sodium (Porcine) 5,000 unit 08/26/25 21:00 08/28/25 08:21 Heparin Sod Inj 5000 Unit/Ml Vial SC 09/09/25 20:59 5,000 unit BID KRYSTAL Administration Hydrochlorothiazide 12.5 mg 08/27/25 09:45 08/28/25 08:21 Hydrochlorothiazide 12.5 Mg Capsule PO 09/26/25 09:44 12.5 mg QDAY KRYSTAL Administration Ceftriaxone Sodium/Dextrose 1 gm in 50 mls @ 100 mls/hr 08/27/25 21:00 08/27/25 21:01 Rocephin/D5w 1gm Iv Premix IV 09/03/25 20:59 100 mls/hr HS KRYSTAL Administration Azithromycin 250 mg/ Sterile 252.5 mls @ 252.5 mls/hr 08/27/25 21:00 08/27/25 21:20 Water 2.5 ml/ Sodium Chloride IV 09/03/25 20:59 252.5 mls/hr HS KRYSTAL Administration Insulin Human Lispro 0 unit 08/27/25 07:30 08/28/25 08:31 Insulin Lispro (Admelog) 1 Unit/0.01 Ml Unit SC 09/26/25 07:29 Not Given AC [facility] Protocol Lisinopril 10 mg 08/27/25 09:00 08/28/25 08:20 Lisinopril 2.5 Mg Tablet PO 09/26/25 08:59 10 mg QDAY KRYSTAL Administration Lorazepam 1 mg 08/27/25 15:47 Lorazepam 2 Mg/Ml Vial IVP X1 PRN prior for scheduled CTA scan Melatonin 6 mg 08/27/25 21:00 08/27/25 21:01 Melatonin 3 Mg Tablet PO 09/26/25 20:59 6 mg HS KRYSTAL Administration Pregabalin 25 mg 08/27/25 09:45 08/28/25 08:20 Pregabalin 25 Mg Capsule PO 09/26/25 09:44 25 mg BID KRYSTAL Administration Plan Mr. Antunez is a 45M with history chronic sciatica, TBI, PTSD, cocci infection, and hypertension admitted for shortness of breathe and dyspnea. #Shortness of breathe #Dyspnea #Community acquired pneumonia #Diffused ground-glass opacity pneumonia #Acute respiratory hypoxia secondary to diffuse multifocal infiltrates #Hypersensitivty pneumonitis #Hx of cocci infection Satting at 84% on RA. Tachypnea. Initial CXR revealed diffuse bilateral multifocal infiltrates involving all lung zones. Received azithromycin and ceftriaxone in the ER. ABG: pH 7.47/PCO2 37/PHCO3 26/PO2 62 No elevated WBC. 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 - Started solumedrol 60mg IV BID. - CTA Chest 08/26/25 : neg PE, severe diffuse pneumonia/ARDS pattern bilaterally - Echo card normal LV, systolic function. LVEF 60~65% - Cocci IgM neg. - Rapid HIV 1&2 Antibody neg. - Duoneb Q4HRRT - Bcx NGTD - Pending Sputum Cx - Pending COVID-19 PCR - Pending HIV-1 RNA - Pending Aspergillus Ag, Legionella Ag - Pending Cocci Serology IgG - Pending 1-3-B-D Glucan - Pending COTY, MARV, Alpha-1 antitrypsin - Pending AFB #Left thyroid nodule 4mm left thyroid nodule noted on CTA 08/26/25 - outpatient follow up - 07/13/25: TSH 0.4, T4 1.59. #Hepatomegaly, cirrhosis vs primary palisading disease #Mild Splenomegaly As noted on CTA 08/26/25. AST/ALT this admission . - outpatient follow up - Will continue to monitor #Hypertension - chronic medical problem - Continue home HCTZ, lisinopril #PTSD #Anxiety - chronic medical problem - Continue home clonazepam #Chronic sciatica - Continue home baclofen, pregabalin - [place] Q6H PRN Health maintenance Dispo: pending cultures, serology DVT prophylaxis: HEPARIN GI prophylaxis: N/A Antibiotics: ceftriaxone + azithromycin + Flucanazole Bowel Regimen: N/A Diet: Diet Carb consistent low. Lines: Peripheral IV Code status: Full code Case discussed with my senior resident Dr. Carias Case discussed with my attending Dr. Anurag Sanchez, PGY 1 Attending Provider Attestation/Addendum I have seen and examined the patient. I was physically present for the [place] portions of the services provided including history, physical exam, diagnosis, treatment plans and orders. I agree with assessment and plan of care as documented by residents. Patient seen and examined at bedside this morning. Continues to complain of shortness of breath and tiredness. Continues to be on IV azithromycin and Rocephin. Was unable to complete CTA yesterday, we will try again with IV Ativan. Saturating well on nasal cannula. Lab results are mostly stable. HIV was negative COVID, flu. Pending, along with Legionella study glucan and cocci serology. Even though this this note was carefully revised there may still be minor errors in palm gatherer due to voice recognition software. Noe Viera MD
--- NOTE | 2025-08-28 10:16 | PD.IDPROG ---
Subjective Subjective Interval history: if you think he has tb, then get sputums for afb and send them to health dept. Exam Vital Signs Temp Pulse Resp BP Pulse Ox O2 Del Method O2 Flow Rate 98.1 F 94 18 139/91 H 93 L Nasal Cannula 2 08/28/25 08:00 08/28/25 08:21 08/28/25 08:00 08/28/25 08:21 08/28/25 08:00 08/28/25 08:00 08/28/25 08:00 Narrative Exam hx as noted. local tests for covid and flu a and b neg. hiv is neg too so pjp unlikely. cocci possible on O2. feels improved. may have cocci as duration similar to that. seems too short for tb Objective - Internal Medicine Labs 08/28/25 05:42 08/28/25 05:42 Labs: Laboratory Results - last 24 hr 08/26/25 08/28/25 16:10 05:42 WBC 8.3 RBC 3.73 L Hgb 11.2 L Hct 33.6 L MCV 90 MCH 30.0 MCHC 33.3 RDW Std Deviation 46.4 H Plt Count 183 Neut % (Auto) 82 H Lymph % (Auto) 10 [place] % (Auto) 6 Eos % (Auto) 0 Baso % (Auto) 0 Neut # (Auto) 6.8 Lymph # (Auto) 0.8 L [place] # (Auto) 0.5 Eos # (Auto) 0.0 Baso # (Auto) 0.0 Immature Gran # (Auto) 0.17 H Absolute Nucleated RBC 0.00 Immature Gran % 2 H Nucleated RBC % 0 Smear Path Review Sent to Pathologist Sodium 137 Potassium 3.3 L D Chloride 98 Carbon Dioxide 26.3 Anion Gap 13 BUN 13 Creatinine 0.7 Estim Creat Clear Calc 149.3 eGFR > 60 BUN/Creatinine Ratio 19 Glucose 190 H Calculated Osmolality 278 Calcium 8.5 Corrected Calcium 8.5 Phosphorus 3.6 Magnesium 1.8 Total Bilirubin 0.7 AST 18 ALT 14 Alkaline Phosphatase 117 H Total Protein 6.5 Albumin 4.0 Globulin 2.5 Albumin/Globulin Ratio 1.6 Coccidioides IgM Ab Negative ABG Interpretation ABG results: 08/26/25 16:40 ABG pH 7.47 H ABG pCO2 37 ABG pO2 62 L ABG HCO3 26 ABG O2 Saturation 93 ABG Base Excess 3 Assessment & Plan A&P Narrative 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 chenged azithro to 500/dfy x3 days and added flucon ok to stop flucon if cocci neg locally. Time Spent With Patient Time: Total time spent is greater than 50% in coordination of care (as documented) at patient's floor/unit and/or counseling patient:
[2025-08-28] MEDS: HYDROcodone/APAP 5/325 TABLET 1 TAB PO ×2 (10:24→19:12)
[2025-08-28 11:51] LABS: Cult AFB Sendout- Sputum* See Sep Rpt
--- NOTE | 2025-08-28 12:08 | ESCONSULT_ITS ---
RE: ALBERTO DOMINGUEZ : 1980 DATE OF CONSULTATION: 08/28/25 REFERRING PHYSICIAN: [facility] team. REASON FOR CONSULTATION: Severe hypoxemia and ARDS picture on chest x-ray with negative tests locally including influenza A, HIV, and COVID-19. He has also been tested several times for COVID-19. PAST SURGICAL HISTORY: Includes only a hernia repair as a child and . ALLERGIES: NONE NOTED. IMMUNIZATIONS: Last tetanus is not known. He does take a flu shot periodically, but not every year. He has had 4 COVID vaccines and has not had pneumococcal vaccine. FAMILY HISTORY: Positive for diabetes in his father and his mother. Mother had borderline diabetes, but lost some weight and was able to avoid it. SOCIAL HISTORY: Lives at home with his mother. 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 MEDICATIONS: He is on medications for pneumonia, bronchitis, depression, insomnia, restless leg syndrome, seizure disorder as noted. PAST MEDICAL HISTORY: He also has diabetes reportedly, but states his doctor told him he did not previously [facility]. PHYSICAL EXAMINATION: GENERAL: Patient is in no distress. He is on supplemental oxygen. He does not seem to be breathing rapidly on that. HEENT: Benign. HEART: Benign. LUNGS: Benign. ASSESSMENT AND PLAN: He has a benign exam, but may have Valley fever. 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 If his Valley fever test is negative, we may stop the fluconazole. But I wanted to start it as a precaution. I also changed his Zithromax from 250 mg daily to 500 mg daily for 3 days. Rocephin can be continued. I will check on him on Thursday. He says he feels a little bit better today, so that may mean he has turned the corner. DT: 11:07:48 TT: 12:07:00 Ref: [id number] - TID: [id number] MTDD
[2025-08-28] MEDS: INSULIN LISPRO (AdmeLOG) 1 UNIT/0.01 ML UNIT SC ×2 (12:28→20:56)
[2025-08-28 13:32] LABS: Vitamin D 25 Hydroxy Total 30.1 ng/mL (7.3-40.2)
--- NOTE | 2025-08-28 14:27 | PC.SS ---
Ashish Antunez is a 45-year-old male admitted to [facility] for SOB. Pts surrogate decision maker is his mother Junie Antunez [phone]. Pt resides at home with her. Pt is unemployed, not aligned with PCP services at this time. DC options discussed and pt wishes to return home. No further needs identified. DM: Mother Junie DC plan: Home
--- NOTE | 2025-08-28 14:30 | ESCONSULT_ITS ---
<Statement entered by Ortiz Shaikh MD - 08/30/25 13:26> pt seen with resident. see additional notes for details HPI Data of Consult Consult date: 08/28/25 Requesting Physician: Amy Osborn MD Admitting Provider: Rajendra Sanchez MD Attending Provider: Amy Osborn MD Primary Care Provider: Physician No Primary/Family Consult Narrative History of present illness: Mr. Antunez is a 45 year old male with Chronic back pain and traumatic brain injury, PTSD s/p IED in which pt was [place] in [place], pt also has known cocci infection which he states he has received treatment for previosuly and hypertension brought the ED on 08/26/25 for progressively worsening shortness of breathe and dyspnea. Patient reports flu like symptoms prior to coming to the ED including generalized malaise for about 1-2 weeks with non-productive cough. Pt states his cough worsened and progressed to worsening shortness of breath.Pt denies any sick contacts, recent travel history. night sweats or recent weight loss. Pt also have never been incarcerated. 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 Pt also have never had a positive TB test previously. On arrival to the ED, pt was saturating in the 60's % and was placed on oxygen via oxymask and nasal connula eventually which improved his oxygenation to 90% on 6L. On admission, COVID, Influenza A & B negative. On 08/26 CXR- Diffuse bilateral multifocal infiltrates involving all lung zones. CT of chest - Severe diffuse pneumonia/ARDS pattern bilaterally, 20mm right tracheobronchial lymph node, mild right hilar lymphadenopathy Primary team consulted ID regarding TB rule out based on image findings. PMH: Chronic back pain, Cocci infection and HTN PSH: multiple back and brain surgeries SH: denies tobacco, alcohol or illicit drugs Allergies: Sufa drugs causes rash Home Meds: Lisinopril, Hydrochlorothiazide, Baclofen, cyclobenzaprine, fluoxitine, cc:: cc: Amy Osborn MD Review of Systems Review of Systems Systems Reviewed: All systems reviewed, normal except as documented Exam Vital Signs Temp Pulse Resp BP Pulse Ox O2 Del Method O2 Flow Rate 97.3 F 100 20 154/97 H 100 Room Air 1 08/30/25 08:00 08/30/25 10:07 08/30/25 10:07 08/30/25 09:05 08/30/25 10:07 08/30/25 08:00 08/29/25 14:52 Narrative Exam GENERAL: A&Ox3 . saturing on 4L O2 via NC, pt appears to be in mild distress due to SOB. NEURO: no focal neurological deficits noted HEENT: Atraumatic, Normocephalic. mucous membranes moist. Eyes open, symmetrical, & clear HEART: Normal Heart Sounds LUNGS: Clear to auscultation with no wheezing or crackles. ABDOMEN: soft, non-distended, non-tender, bowel sounds heard, no guarding or rebound tenderness SKIN: No Rash or ecchymoses EXTREMITIES: No edema, tenderness, able to move all 4 extremities, pedal pulses palpated Results Labs 08/30/25 06:05 08/30/25 06:05 Labs: Short CBC 08/30/25 Range/Units 06:05 WBC 15.1 H D (3.8-10.6) Thou/mm3 Hgb 12.1 L (13.5-16.0) g/dL Hct 34.7 L (41.0-53.0) % Plt Count 349 D (140-440) Thou/mm3 BMP 08/30/25 06:05 Sodium 132 L Potassium 5.2 H Chloride 98 Carbon Dioxide 22.2 BUN 25 H Creatinine 1.0 Glucose 430 H* D Calcium 9.1 ABG Interpretation ABG results: 08/26/25 16:40 ABG pH 7.47 H ABG pCO2 37 ABG pO2 62 L ABG HCO3 26 ABG O2 Saturation 93 ABG Base Excess 3 Quality Measures Quality Measures VTE prophylaxis Medications Home Medications and Allergies Home Medications ?Medication ?Instructions ?Recorded ?Confirmed ?Type baclofen 20 mg tablet 20 mg PO BID 07/15/25 History clonazepam 1 mg tablet 1 mg PO BID 07/15/25 5 History hydrochlorothiazide 12.5 mg tablet 12.5 mg PO QDAY 10/0808/26/25 History ibuprofen 800 mg tablet 400 mg PO TID PRN pain 07/1508/26/25 History paroxetine HCl 20 mg tablet 20 mg PO QDAY 07/15/25 History sumatriptan succinate 50 mg tablet 50 mg PO Q2H PRN mi graine headache 07/15/25 08/26/25 History albuterol sulfate 90 mcg/actuation 2 puff inhalation Q 4H PRN 08/26/25 08/26/25 History aerosol inhaler shortness of breath or wheez ing benzonatate 200 mg capsule 200 mg PO TID PRN cough 08/26/25 History cefdinir 300 mg capsule 300 mg PO Q12H 08/26/2508/14 History cyclobenzaprine 10 mg tablet 10 mg PO HS PRN spasms 08/26/25 History hydrocodone 5 mg-acetaminophen 325 1 tab PO Q12H PRN p ain 08/26/25 08/26/25 History mg tablet lisinopril 10 mg tablet 10 mg PO QDAY 08/26/2508/26 History pregabalin 25 mg capsule 25 mg PO Q12H 08/26/2508/26 History promethazine-DM 6.25 mg-15 mg/5 mL 5 ml PO Q4H PRN cou gh 08/26/25 08/26/25 History oral syrup Allergies Allergy/AdvReac Type Severity Reaction Status Date / Time Sulfa (Sulfonamide Allergy Severe Rash Verified 08/26/25 14:54 Antibiotics) Visit Medications Acetaminophen (Acetaminophen 325 Mg Tablet) 650 mg PO Q6H PRN PRN Reason: Fever >101.5 Stop: 09/25/25 16:33 Hydrocodone Bitart/Acetaminophen (Hydrocodone/Apap 5/325 Tablet) 1 tab PO Q6HR PRN PRN Reason: PAIN SCALE 4-10(Mod-Sev Stop: 09/01/25 09:37 Last Admin: 08/30/25 04:53 Dose: 1 tab Albuterol/Ipratropium (Albuterol/Ipratropium (Duoneb) Rt Alecia 3 Ml Nebu) 3 ml INH Q4HRRT KRYSTAL Stop: 09/26/25 14:59 Last Admin: 08/30/25 10:07 Dose: 3 ml Albuterol/Ipratropium (Albuterol/Ipratropium (Duoneb) Rt Alecia 3 Ml Nebu) 3 ml INH Q2HR PRN PRN Reason: SHORTNESS OF BREATH OR WHEEZE Stop: 09/26/25 13:59 Baclofen (Baclofen 10 Mg Tablet) 20 mg PO BID [facility] Stop: 09/26/25 09:44 Last Admin: 08/30/25 09:04 Dose: 20 mg Clonazepam (Clonazepam 0.5 Mg Tablet) 1 mg PO BID [facility] Stop: 09/02/25 09:59 Last Admin: 08/30/25 09:05 Dose: 1 mg Cyclobenzaprine HCl (Cyclobenzaprine 5 Mg Tablet) 10 mg PO HS PRN PRN Reason: spasms Last Admin: 08/28/25 19:12 Dose: 10 mg Dextrose (Dextrose 50%-Water Inj 50 Ml Syringe) 25 ml IV Q15MIN PRN PRN Reason: BG 50-70 responsive npo pt Stop: 09/25/25 18:18 Dextrose (Dextrose 50%-Water Inj 50 Ml Syringe) 50 ml IV Q15MIN PRN PRN Reason: BG <50 OR BG <70 & pt unresponsive Stop: 09/25/25 18:18 Glucagon (Glucagon Inj 1 Mg Vial) 1 mg IM Q15MIN PRN PRN Reason: BG <70, and no IV access Heparin Sodium (Porcine) (Heparin Sod Inj 5000 Unit/Ml Vial) 5,000 unit SC BID [facility] Stop: 09/09/25 20:59 Last Admin: 08/30/25 09:11 Dose: 5,000 unit Hydrochlorothiazide (Hydrochlorothiazide 12.5 Mg Capsule) 12.5 mg PO QDAY [facility] Stop: 09/26/25 09:44 Last Admin: 08/30/25 09:04 Dose: 12.5 mg Cefepime HCl 1 gm/ Sodium (Chloride) 50 mls @ 100 mls/hr IV Q8HR [facility] Stop: 09/05/25 10:06 Last Admin: 08/30/25 05:01 Dose: 100 mls/hr Sodium Chloride (Ns) 1,000 mls @ 125 mls/hr IV .Q8H ONE Stop: 08/30/25 15:54 Last Admin: 08/30/25 09:03 Dose: 125 mls/hr Insulin Human Lispro (Insulin Lispro (Admelog) 1 Unit/0.01 Ml Unit) 0 unit SC ACHS [facility]; Protocol Stop: 09/27/25 11:29 Lisinopril (Lisinopril 2.5 Mg Tablet) 10 mg PO QDAY [facility] Stop: 09/26/25 08:59 Last Admin: 08/30/25 09:05 Dose: 10 mg Lorazepam (Lorazepam 2 Mg/Ml Vial) 1 mg IVP X1 PRN PRN Reason: prior for scheduled CTA scan Melatonin (Melatonin 3 Mg Tablet) 6 mg PO HS KRYSTAL Stop: 09/26/25 20:59 Last Admin: 08/29/25 21:09 Dose: 6 mg Methylprednisolone Sodium Succinate (Methylprednisolone Sod Succ 40 Mg/Ml Vial) 60 mg IVP BID [facility]AL Stop: 09/04/25 20:59 Last Admin: 08/30/25 09:04 Dose: 60 mg Paroxetine HCl (Paroxetine Hcl 10 Mg Tablet) 20 mg PO QDAY [facility] Stop: 09/29/25 08:59 Last Admin: 08/30/25 09:04 Dose: 20 mg Pregabalin (Pregabalin 25 Mg Capsule) 25 mg PO BID [facility] Stop: 09/26/25 09:44 Last Admin: 08/30/25 09:05 Dose: 25 mg Discontinued Medications Hydrocodone Bitart/Acetaminophen (Hydrocodone/Apap 5/325 Tablet) 1 tab PO X1 ONE Stop: 08/27/25 00:16 Last Admin: 08/27/25 00:39 Dose: 1 tab Azithromycin (Azithromycin 250 Mg Tablet) 500 mg PO QDAY [facility] Stop: 09/08/25 12:00 Last Admin: 08/29/25 08:38 Dose: 500 mg Clonazepam (Clonazepam 0.5 Mg Tablet) 1 mg PO BID [facility] Stop: 08/28/25 09:00 Last Admin: 08/27/25 15:42 Dose: 1 mg Fluconazole (Fluconazole 100 Mg Tablet) 400 mg PO QDAY [facility] Stop: 09/05/25 08:59 Last Admin: 08/29/25 08:37 Dose: 400 mg Azithromycin 500 mg/ Sodium (Chloride) 250 mls @ 250 mls/hr IV X1 ONE Stop: 08/26/25 17:07 Last Admin: 08/26/25 16:51 Dose: 250 mls/hr Ceftriaxone Sodium/Dextrose (Rocephin/D5w 1gm Iv Premix) 1 gm in 50 mls @ 100 mls/hr IV X1 ONE Stop: 08/26/25 16:37 Last Infusion: 08/26/25 17:20 Dose: Infused Ceftriaxone Sodium/Dextrose (Rocephin/D5w 1gm Iv Premix) 1 gm in 50 mls @ 100 mls/hr IV HS KRYSTAL Stop: 09/03/25 20:59 Last Infusion: 08/28/25 21:46 Dose: Infused Azithromycin 250 mg/ Sterile (Water 2.5 ml/ Sodium Chloride) 252.5 mls @ 252.5 mls/hr IV HS KRYSTAL Stop: 09/03/25 20:59 Last Admin: 08/27/25 21:20 Dose: 252.5 mls/hr Insulin Human Lispro (Insulin Lispro (Admelog) 1 Unit/0.01 Ml Unit) 0 unit SC AC [facility]; Protocol Stop: 09/26/25 07:29 Last Admin: 08/28/25 12:28 Dose: 2 unit Insulin Human Lispro (Insulin Lispro (Admelog) 1 Unit/0.01 Ml Unit) 0 unit SC ACHS [facility]; Protocol Stop: 09/27/25 16:59 Last Admin: 08/30/25 07:30 Dose: 5 unit Lorazepam (Lorazepam 2 Mg/Ml Vial) 2 mg IVP X1 PRN PRN Reason: prior for scheduled CTA scan Potassium Chloride (Potassium Chloride 20 Meq Tabcr) 40 meq PO X1 ONE Stop: 08/28/25 07:58 Last Admin: 08/28/25 08:20 Dose: 40 meq Promethazine HCl/Dextromethorphan (Promethazine/Dm Syrup 5 Ml Dose) 5 ml PO X1 ONE; Protocol Stop: 08/27/25 03:50 Last Admin: 08/27/25 04:02 Dose: 5 ml Sodium Chloride (Sodium Chloride Rt 10% 15 Ml Nebu) 5 ml INH X1 ONE Stop: 08/26/25 16:02 Last Admin: 08/26/25 18:29 Dose: Not Given Sodium Chloride (Sodium Chloride Rt 10% 15 Ml Nebu) 5 ml INH X1 ONE Stop: 08/26/25 16:02 Last Admin: 08/26/25 21:07 Dose: Not Given Sodium Chloride (Sodium Chloride Rt 10% 15 Ml Nebu) 5 ml INH X1 ONE Stop: 08/27/25 10:06 Sodium Chloride (Sodium Chloride Rt 10% 15 Ml Nebu) 5 ml INH X1 ONE Stop: 08/27/25 10:29 Last Admin: 08/27/25 16:46 Dose: Not Given Sodium Chloride (Sodium Chloride Rt 10% 15 Ml Nebu) 5 ml INH X1 ONE Stop: 08/27/25 10:32 Sodium Chloride (Sodium Chloride Rt 10% 15 Ml Nebu) 5 ml INH X1 ONE Stop: 08/27/25 16:11 Last Admin: 08/28/25 03:08 Dose: Not Given Sodium Chloride (Sodium Chloride Rt 10% 15 Ml Nebu) 5 ml INH X1 ONE Stop: 08/27/25 16:23 Last Admin: 08/28/25 03:07 Dose: Not Given Sodium Chloride (Sodium Chloride Rt 10% 15 Ml Nebu) 5 ml INH X1 ONE Stop: 08/27/25 23:52 Last Admin: 08/28/25 07:23 Dose: Not Given Sodium Polystyrene Sulfonate (Sod Polystyrene Sulfon Susp 15 Gm/60 Ml Btl) 30 gm PO X1 ONE Stop: 08/30/25 07:56 Last Admin: 08/30/25 09:03 Dose: 30 gm Tuberculin PPD (Tuberculin Ppd Inj 5 Unit/0.1 Ml Dose) 5 unit ID X1 ONE Stop: 08/26/25 17:07 Tuberculin PPD (Tuberculin Ppd Inj 5 Unit/0.1 Ml Dose) 5 unit ID X1 ONE Stop: 08/27/25 10:01 Last Admin: 08/27/25 10:16 Dose: 5 unit Assessment & Plan Plan Mr. Antunez is a 45 year old male with Chronic back pain and traumatic brain injury, PTSD s/p IED in which [place] was [place], pt also has known cocci infection which he states he has received treatment for previously and hypertension brought the ED on 08/26/25 for progressively worsening shortness of breathe and dyspnea. #Acute Hypoxic respiratory failure 2/2 #Community Acquired Pneumonia #Hx of cocci infection -Pt complains of non productive cough for approximately 2 weeks with flu like symptoms. Progressively worsening shortness of breath. -Initial CXR revealed diffuse bilateral multifocal infiltrates involving all lung zones. Received azithromycin and ceftriaxone in the ER. WBC within normal limits, and pt has remained afebrile ABG: pH 7.47/PCO2 37/PHCO3 26/PO2 62 On admission COVID-19, Influenza A & B were Neg -Blood cultures are negative Plan: -Repeat Cocci test, for now will start pt on flucanazole. If repeat test is negative then may discontinue the flucanazole -May take azithromycin 500mg x3 days -Continue Ceftriaxone - Pending HIV, Aspergillus Ag, Legionella Ag, 1-3-B-D Glucan - Pending COTY, MARV, Alpha-1 antitrypsin - Pending AFB for TB rule out #Hypertension #Hepatomegaly, cirrhosis vs primary palisading disease #Mild Splenomegaly #Left thyroid nodule #PTSD #Anxiety #Chronic sciatica -Continue management as per primary team Assessment and plan discussed with my attending physician Dr. Neel Hernadez (PGY-2)- Internal medicine resident
[2025-08-28 20:07] LABS: Cult AFB Sendout- Sputum* See Sep Rpt
[2025-08-28] MEDS: cefTRIAXone/D5w 1gm IV premix 1 GM/50 ML BAG IV (20:55)
[2025-08-28] MEDS: MELATONIN 3 MG TABLET 6 MG PO (20:56)
[2025-08-29] VITALS (13 sets, daily range): BP systolic 125–146; BP diastolic 80–95; PULSE 75–113; RESP 11–92; TEMP 36.1–36.8; O2SAT 88–99; BMI 23.8
[2025-08-29] MEDS: HYDROcodone/APAP 5/325 TABLET 1 TAB PO ×3 (04:31→21:26)
[2025-08-29 05:51] LABS: Basophils # (Auto) 0.0 Thou/mm3 (0.0-0.2); Basophils % (Auto) 0 % (0-2.5); Eosinophils # (Auto) 0.0 Thou/mm3 (0.0-0.5); Eosinophils % (Auto) 0 % (0-10); Hematocrit 36.1 % (41.0-53.0); Hemoglobin 12.2 g/dL (13.5-16.0); Immature Granulocytes Auto 0.19 Thou/mm3 (0.00-0.00); Lymphocytes # (Auto) 0.5 Thou/mm3 (1.0-4.8); Lymphocytes % (Auto) 6 % (10-50); Mean Corpuscular HGB Conc 33.8 g/dl (31.0-37.0); Mean Corpuscular Hemoglobin 30.0 pg (25.0-35.0); Mean Corpuscular Volume 89 fL (80-100); Monocytes # (Auto) 0.1 Thou/mm3 (0.0-0.8); Monocytes % (Auto) 1 % (0-12); Neutrophils # (Auto) 7.8 Thou/mm3 (1.8-7.7); Neutrophils % (Auto) 90 % (37-80); Nucleated Red Blood Cell # 0.00 Thou/mm3 (0.00-0.00); Nucleated Red Blood Cell % 0 /100 WBC (0); Platelet Count 284 Thou/mm3 (140-440); RDW Standard Deviation 45.1 fL (35.1-43.9); Red Blood Count 4.06 Miln/mm3 (4.50-5.90); White Blood Count 8.6 Thou/mm3 (3.8-10.6)
[2025-08-29 06:13] LABS: B-Type Natriuretic Peptide < 20 pg/mL (0-100)
[2025-08-29 06:39] LABS: Anion Gap 12 (7-16); BUN/Creatinine Ratio 16 Ratio (12-20); Blood Urea Nitrogen 13 mg/dL (9-23); Calcium 9.4 mg/dL (8.3-10.6); Carbon Dioxide 23.6 mMol/L (20.0-31.0); Chloride 97 mMol/L (98-107); Creatinine (Component) 0.8 mg/dL (0.6-1.3); Estimated Creatinine Clearance 130.7 mL/min (>60); Glucose 344 mg/dL (74-106); Magnesium 1.9 mg/dL (1.6-2.6); Osmolality,Calculated 280 (275-295); Phosphorous 3.6 mg/dL (2.4-5.1); Potassium 4.8 mMol/L (3.4-5.1); Sodium 133 mMol/L (136-145); eGFR > 60 See Note
[2025-08-29] MEDS: ALBUTEROL/IPRATROPIUM (Duoneb) RT SOL 3 ML NEBU INH ×3 (07:36→18:33)
[2025-08-29] MEDS: FLUCONAZOLE 100 MG TABLET 400 MG PO (08:37)
[2025-08-29] MEDS: AZITHROMYCIN 250 MG TABLET 500 MG PO (08:38)
[2025-08-29] MEDS: PREGABALIN 25 MG CAPSULE PO ×2 (08:38→21:09)
[2025-08-29] MEDS: BACLOFEN 10 MG TABLET 20 MG PO ×2 (08:38→21:09)
[2025-08-29] MEDS: INSULIN LISPRO (AdmeLOG) 1 UNIT/0.01 ML UNIT SC ×4 (08:43→21:10)
[2025-08-29] MEDS: HEPARIN SOD INJ 5000 UNIT/ML VIAL SC ×2 (08:44→21:10)
--- NOTE | 2025-08-29 10:30 | ESPR_ITS ---
<Statement entered by Amy Osborn MD - 09/07/25 08:26> I reviewed above note and agree with findings and plans. I have also personally examined the patient with medicine team and went over assessment and plan with medical team including product marketing intern and resident physician. <Statement entered by Shirlene Jewell MD - 08/29/25 17:47> In summary: A 42-year-old male with PMHx of chronic sciatica, TBI, PTSD, cocci infection, HTN, admitted for shortness of breath, dyspnea with finding of bilateral patchy pneumonia. Patient was hypoxemic, satting 84% on room air, but showed significant improvement in terms of oxygen demand. Sputum culture grew Acinetobacter baumannii for which she is currently on CEFEPIME. He received a dose of FLUCONAZOLE per ID recommendation for suspected cocci however IgM was negative, and FLUCONAZOLE discontinued. Pending further recommendations from ID. Other labs and infectious studies including TB are pending and he sustained on TB isolation for now. I?ve reviewed the note and agree with this assessment and plan, with the exceptions outlined above. I personally went over the labs, imaging, home medications, and prior records, and examined the patient. The case was also reviewed with the attending physician. Please note: this document was transcribed using voice recognition technology; minor inaccuracies may be present. Shirlene Jewell, PGY II Documentation for date of: 08/29/25 Subjective Subjective Interval history: Mr. Antunez is a 45M with history of chronic sciatica, TBI, PTSD, cocci infection, and hypertension BIBA to the ED for shortness of breathe and dyspnea. He started feeling generalized malaise with occasional cough on last week (08/17/25). He denied chest pain, palpitation, recent travel, hemotypsis, sick contact, unilateral swelling, diarrhea. He denied prior history of TB, and is up to date on flu and covid vaccines. 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 CXR revealed diffuse bilateral multifocal infiltrates involving all lung zones. He was admitted for shortness of breath and dyspnea. 08/27/25: NAOE. Patient could not tolerate CTA Chest yesterday due to orthopnea and anxiety. Will reattempt CT scan today. His oxygen status had improved to 94% on 3L NC with abx treatment. LDH was found to be markly elevated. At this time, still pedning Bcx and sputum culture. AFB sputum cultured ordered for TB r/o given his high risk. 08/28/25: NAOE. Oxygen demand decreased, currently on 2L NC with 96% saturation. CTA chest revealed severe diffuse pneumonia vs ARDS pattern bilaterally. Echocardiogram showed normal LV size and normal systolic function, LVEF 60-65%, no evidence of PAH. CT cervial spine from 08/12/25 revealed normal apical lung zones, unsure what's causing the rapid progression of patient's pneumonia/ARDS. Investigate autoimmune causes today (a-1 antitrypsin, MARV, COTY ordered). Started solumetrol 60mg B ID today. 08/29/25: NAOE. Patient reports auditory and visual hallucinations overnight, denies SI/HI, likely due to hospital delirium. Denies prior psych histroy. He reports hearing voices from his mom calling and seeing his dogs jumping on his bed. Advised keep room well-lit during the day and good sleep hygiene. Patient was given melatonin 6mg PO HS. Patient is satting at 95% on 2L today, 88% on RA. Sputum culture grew Acinetobacter baumannii/haemol, sensitive to cefepime. His antibiotics regimen was switched from ceftriaxone and azithromycin to cefepime 1gm Q8H. Cocci IgM and IgG negative, discontinued fluconazole. Still pending TB r/o. At approximately 2:52PM, received nurse call regarding patient having another episode of hallucination. Patient seen and examined at [facility], denies SI/HI. Patient understands those hallucinations are not real, and is likely due to being in the isolation room for long period of time. Patient does not warrant any antipsychotic meds at this time. Exam Vital Signs Temp Pulse Resp BP Pulse Ox O2 Del Method O2 Flow Rate 97.0 F 82 11 L 128/85 H 96 Nasal Cannula 2 08/29/25 08:00 08/29/25 08:39 08/29/25 08:00 08/29/25 08:39 08/29/25 08:00 08/29/25 08:00 08/29/25 08:00 Narrative Exam General: Awake and in no acute distress. A/O x 3. 95% on 2L. 88% on RA. HEENT: Normocephalic, atraumatic. Heart: Regular rate and rhythm Lungs: Mild crackles to all lung ramon. No increase WOB. Abdomen: Soft, nondistended, nontender. No guarding or rebound tenderness. Neurologic: Alert and oriented x3, no gross neurological deficit, and patient able to move all 4 extremities. Extremities:No pitting edema in lower extremities. Skin: No rash. No ecchymoses. Objective Labs 08/29/25 05:03 08/29/25 05:03 Labs: Laboratory Results - last 24 hr 08/27/25 08/28/25 08/29/25 16:55 09:26 05:03 WBC 8.6 RBC 4.06 L Hgb 12.2 L Hct 36.1 L MCV 89 MCH 30.0 MCHC 33.8 RDW Std Deviation 45.1 H Plt Count 284 D Neut % (Auto) 90 H Lymph % (Auto) 6 L [place] % (Auto) 1 Eos % (Auto) 0 Baso % (Auto) 0 Neut # (Auto) 7.8 H Lymph # (Auto) 0.5 L [place] # (Auto) 0.1 Eos # (Auto) 0.0 Baso # (Auto) 0.0 Immature Gran # (Auto) 0.19 H Absolute Nucleated RBC 0.00 Immature Gran % 2 H Nucleated RBC % 0 Sodium 133 L Potassium 4.8 D Chloride 97 L Carbon Dioxide 23.6 Anion Gap 12 BUN 13 Creatinine 0.8 Estim Creat Clear Calc 130.7 eGFR > 60 BUN/Creatinine Ratio 16 Glucose 344 H D Calculated Osmolality 280 Calcium 9.4 Phosphorus 3.6 Magnesium 1.9 B-Natriuretic Peptide < 20 25-OH Vitamin D Total 30.1 Mycobacterial Culture See Sep Rpt ABG Interpretation ABG results: 08/26/25 16:40 ABG pH 7.47 H ABG pCO2 37 ABG pO2 62 L ABG HCO3 26 ABG O2 Saturation 93 ABG Base Excess 3 Quality Measures Quality Measures VTE prophylaxis Assessment & Plan Assessment Current Active Medications: Generic Name Dose Route Start Last Admin Trade Name Freq PRN Reason Stop Dose Admin Acetaminophen 650 mg 08/26/25 16:34 Acetaminophen 325 Mg Tablet PO 09/25/25 16:33 Q6H PRN Fever >101.5 Hydrocodone Bitart/Acetaminophen 1 tab 08/27/25 09:38 08/29/25 04:31 Hydrocodone/Apap 5/325 Tablet PO 09/01/25 09:37 1 tab Q6HR PRN Administration PAIN SCALE 4-10(Mod-Sev Albuterol/Ipratropium 3 ml 08/27/25 15:00 08/29/25 07:36 Albuterol/Ipratropium (Duoneb) Rt Alecia 3 Ml Nebu INH 09/26/25 14:59 3 ml Q4HRRT KRYSTAL Administration Albuterol/Ipratropium 3 ml 08/27/25 14:00 Albuterol/Ipratropium (Duoneb) Rt Alecia 3 Ml Nebu INH 09/26/25 13:59 Q2HR PRN SHORTNESS OF BREATH OR WHEEZE Azithromycin 500 mg 08/29/25 09:00 08/29/25 08:38 Azithromycin 250 Mg Tablet PO 09/08/25 12:00 500 mg QDAY KRYSTAL Administration Baclofen 20 mg 08/27/25 09:45 08/29/25 08:38 Baclofen 10 Mg Tablet PO 09/26/25 09:44 20 mg BID KRYSTAL Administration Clonazepam 1 mg 08/28/25 10:00 08/29/25 08:38 Clonazepam 0.5 Mg Tablet PO 09/02/25 09:59 1 mg BID KRYSTAL Administration Cyclobenzaprine HCl 10 mg 08/28/25 13:07 08/28/25 19:12 Cyclobenzaprine 5 Mg Tablet PO 10 mg HS PRN Administration spasms Dextrose 25 ml 08/26/25 18:19 Dextrose 50%-Water Inj 50 Ml Syringe IV 09/25/25 18:18 Q15MIN PRN BG 50-70 responsive npo pt Dextrose 50 ml 08/26/25 18:19 Dextrose 50%-Water Inj 50 Ml Syringe IV 09/25/25 18:18 Q15MIN PRN BG <50 OR BG <70 & pt unresponsive Fluconazole 400 mg 08/29/25 09:00 08/29/25 08:37 Fluconazole 100 Mg Tablet PO 09/05/25 08:59 400 mg QDAY KRYSTAL Administration Glucagon 1 mg 08/26/25 18:19 Glucagon Inj 1 Mg Vial IM Q15MIN PRN BG <70, and no IV access Heparin Sodium (Porcine) 5,000 unit 08/26/25 21:00 08/29/25 08:44 Heparin Sod Inj 5000 Unit/Ml Vial SC 09/09/25 20:59 5,000 unit BID KRYSTAL Administration Hydrochlorothiazide 12.5 mg 08/27/25 09:45 08/29/25 08:38 Hydrochlorothiazide 12.5 Mg Capsule PO 09/26/25 09:44 12.5 mg QDAY KRYSTAL Administration Cefepime HCl 1 gm/ Sodium 50 mls @ 100 mls/hr 08/29/25 10:07 Chloride IV 09/05/25 10:06 Q8HR [facility] Insulin Human Lispro 0 unit 08/28/25 17:00 08/29/25 08:43 Insulin Lispro (Admelog) 1 Unit/0.01 Ml Unit SC 09/27/25 16:59 5 unit ACHS KRYSTAL Administration Protocol Lisinopril 10 mg 08/27/25 09:00 08/29/25 08:39 Lisinopril 2.5 Mg Tablet PO 09/26/25 08:59 10 mg QDAY KRYSTAL Administration Lorazepam 1 mg 08/27/25 15:47 Lorazepam 2 Mg/Ml Vial IVP X1 PRN prior for scheduled CTA scan Melatonin 6 mg 08/27/25 21:00 08/28/25 20:56 Melatonin 3 Mg Tablet PO 09/26/25 20:59 6 mg HS KRYSTAL Administration Methylprednisolone Sodium Succinate 60 mg 08/28/25 21:00 08/29/25 08:37 Methylprednisolone Sod Succ 40 Mg/Ml Vial IVP 09/04/25 20:59 60 mg BID KRYSTAL Administration Pregabalin 25 mg 08/27/25 09:45 08/29/25 08:38 Pregabalin 25 Mg Capsule PO 09/26/25 09:44 25 mg BID KRYSTAL Administration Plan Mr. Antunez is a 45M with history chronic sciatica, TBI, PTSD, cocci infection, and hypertension admitted for shortness of breathe and dyspnea. #Acinetobacter baumannii/haemol pneumonia #Shortness of breathe #Dyspnea #Community acquired pneumonia #Diffused ground-glass opacity pneumonia #Acute respiratory hypoxia secondary to diffuse multifocal infiltrates #Hypersensitivty pneumonitis #Hx of cocci infection Satting at 84% on RA. Tachypnea. Initial CXR revealed diffuse bilateral multifocal infiltrates involving all lung zones. Received azithromycin and ceftriaxone in the ER. ABG: pH 7.47/PCO2 37/PHCO3 26/PO2 62 No elevated WBC. 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 --> flucanazole d/eze today (08/29/25) - Continue solumedrol 60mg IV BID. - CTA Chest 08/26/25 : neg PE, severe diffuse pneumonia/ARDS pattern bilaterally - Echo card normal LV, systolic function. LVEF 60~65% - Cocci IgM neg. - Rapid HIV 1&2 Antibody neg. - Duoneb Q4HRRT - Bcx NGTD - COVID-19 PCR negative - Sputum Cx grew Acineobacter baumannii (08/29/25) - Cocci Serology IgM and IgG negative. - Pending HIV-1 RNA - Pending Aspergillus Ag, Legionella Ag - Pending 1-3-B-D Glucan - Pending COTY, MARV, Alpha-1 antitrypsin - Pending AFB #Hospital-acquired Delirium #Auditory hallucination #Visual hallucination Reports auditory and visual hallucination, denies HI/SI. - treat underlying infection - encourage good sleep hygiene - Melatonin 6mg QD HS - Well-lit room during day - Quiet at night - Encourage mobilization. #Left thyroid nodule 4mm left thyroid nodule noted on CTA 08/26/25 - outpatient follow up - 07/13/25: TSH 0.4, T4 1.59. #Hepatomegaly, cirrhosis vs primary palisading disease #Mild Splenomegaly As noted on CTA 08/26/25. AST/ALT this admission . - outpatient follow up - Will continue to monitor #Hypertension - chronic medical problem - Continue home HCTZ, lisinopril #PTSD #Anxiety - chronic medical problem - Continue home clonazepam - Continue home paroxetine #Chronic sciatica - Continue home baclofen, pregabalin - [place] Q6H PRN Health maintenance Dispo: pending TB r/o. DVT prophylaxis: HEPARIN GI prophylaxis: N/A Antibiotics: Cefepime Bowel Regimen: N/A Diet: Diet Carb consistent low. Lines: Peripheral IV Code status: Full code Case discussed with my senior resident Dr. Jewell Case discussed with my attending Dr. Anurag Falkh, DO PGY 1
[2025-08-29] MEDS: CEFEPIME INJ 1 GM in SODIUM CHLORIDE 0.9% (Popper) 50 ML IV ×2 (11:29→21:10)
[2025-08-29 11:57] LABS: Cocci Serology, IgG Negative (Negative)
[2025-08-29 16:02] LABS: Band Neutrophils (Manual) 5 % (0-6); Lymphocytes (Manual) 4 % (20-44); Monocytes (Manual) 3 % (2-9); Neutrophils (Manual) 88 % (50-70)
[2025-08-29] MEDS: MELATONIN 3 MG TABLET 6 MG PO (21:09)
[2025-08-30] VITALS (13 sets, daily range): BP systolic 124–154; BP diastolic 78–97; PULSE 85–109; RESP 16–97; TEMP 36.1–36.4; O2SAT 91–100; BMI 23.2
--- NOTE | 2025-08-30 03:10 | PC.NURSE ---
PT SPO2 88-93% ON ROOM AIR RESTING. PT DENIES SHORTNESS OF BREATH, RESP EASY AND UNLABORED. PT DENIES NEED TO USE OXYGEN AT THIS TIME, ON CONTINUOS PULSE OX. CALL LIGHT WITHIN REACH.
[2025-08-30] MEDS: HYDROcodone/APAP 5/325 TABLET 1 TAB PO ×2 (04:53→16:26)
[2025-08-30] MEDS: CEFEPIME INJ 1 GM in SODIUM CHLORIDE 0.9% (Popper) 50 ML IV ×3 (05:01→21:20)
[2025-08-30] MEDS: ALBUTEROL/IPRATROPIUM (Duoneb) RT SOL 3 ML NEBU INH ×4 (06:11→18:45)
[2025-08-30 06:19] LABS: Basophils # (Auto) 0.0 Thou/mm3 (0.0-0.2); Basophils % (Auto) 0 % (0-2.5); Eosinophils # (Auto) 0.0 Thou/mm3 (0.0-0.5); Eosinophils % (Auto) 0 % (0-10); Hematocrit 34.7 % (41.0-53.0); Hemoglobin 12.1 g/dL (13.5-16.0); Immature Granulocytes Auto 0.24 Thou/mm3 (0.00-0.00); Lymphocytes # (Auto) 0.7 Thou/mm3 (1.0-4.8); Lymphocytes % (Auto) 4 % (10-50); Mean Corpuscular HGB Conc 34.9 g/dl (31.0-37.0); Mean Corpuscular Hemoglobin 30.5 pg (25.0-35.0); Mean Corpuscular Volume 87 fL (80-100); Monocytes # (Auto) 0.3 Thou/mm3 (0.0-0.8); Monocytes % (Auto) 2 % (0-12); Neutrophils # (Auto) 13.9 Thou/mm3 (1.8-7.7); Neutrophils % (Auto) 92 % (37-80); Nucleated Red Blood Cell # 0.00 Thou/mm3 (0.00-0.00); Nucleated Red Blood Cell % 0 /100 WBC (0); Platelet Count 349 Thou/mm3 (140-440); RDW Standard Deviation 43.4 fL (35.1-43.9); Red Blood Count 3.97 Miln/mm3 (4.50-5.90); White Blood Count 15.1 Thou/mm3 (3.8-10.6)
[2025-08-30 06:46] LABS: Anion Gap 12 (7-16); BUN/Creatinine Ratio 25 Ratio (12-20); Blood Urea Nitrogen 25 mg/dL (9-23); Calcium 9.1 mg/dL (8.3-10.6); Carbon Dioxide 22.2 mMol/L (20.0-31.0); Chloride 98 mMol/L (98-107); Creatinine (Component) 1.0 mg/dL (0.6-1.3); Estimated Creatinine Clearance 104.5 mL/min (>60); Magnesium 2.0 mg/dL (1.6-2.6); Osmolality,Calculated 286 (275-295); Phosphorous 5.3 mg/dL (2.4-5.1); Potassium 5.2 mMol/L (3.4-5.1); Sodium 132 mMol/L (136-145); eGFR > 60 See Note
[2025-08-30 06:52] LABS: Glucose 430 mg/dL (74-106)
[2025-08-30] MEDS: INSULIN LISPRO (AdmeLOG) 1 UNIT/0.01 ML UNIT SC ×4 (07:30→20:56)
--- NOTE | 2025-08-30 07:43 | PD.IDPROG ---
Subjective Subjective Interval history: primary tem is obsessed with using cefepime it was restarted the other day in this asymptomatic man Exam Vital Signs Temp Pulse Resp BP Pulse Ox O2 Del Method O2 Flow Rate 96.9 F 85 16 139/90 H 99 Room Air 1 08/30/25 04:00 08/30/25 06:12 08/30/25 06:12 08/30/25 04:00 08/30/25 06:12 08/30/25 04:00 08/29/25 14:52 Narrative Exam tests neg. sputum noted. ok to move to po agent to finish rx with sulfa allergy, suggest augmentin. for remainder of 7d if you want cefepime, then you can arrange it for him. Objective - Internal Medicine Labs 08/30/25 06:05 08/30/25 06:05 Labs: Laboratory Results - last 24 hr 08/26/25 08/28/25 08/28/25 16:10 01:00 10:55 WBC RBC Hgb Hct MCV MCH MCHC RDW Std Deviation Plt Count Neut % (Auto) Lymph % (Auto) [place] % (Auto) Eos % (Auto) Baso % (Auto) Neut # (Auto) Lymph # (Auto) [place] # (Auto) Eos # (Auto) Baso # (Auto) Immature Gran # (Auto) Absolute Nucleated RBC Immature Gran % Neutrophils % (Manual) Monocytes % (Manual) Nucleated RBC % Band Neutrophils Lymphocytes (Manual) Sodium Potassium Chloride Carbon Dioxide Anion Gap BUN Creatinine Estim Creat Clear Calc eGFR BUN/Creatinine Ratio Glucose Calculated Osmolality Calcium Phosphorus Magnesium Coccidioides IgG Ab Negative Mycobacterial Culture See Sep Rpt See Sep Rpt 08/29/25 08/30/25 05:03 06:05 WBC 15.1 H D RBC 3.97 L Hgb 12.1 L Hct 34.7 L MCV 87 MCH 30.5 MCHC 34.9 RDW Std Deviation 43.4 Plt Count 349 D Neut % (Auto) 92 H Lymph % (Auto) 4 L [place] % (Auto) 2 Eos % (Auto) 0 Baso % (Auto) 0 Neut # (Auto) 13.9 H Lymph # (Auto) 0.7 L [place] # (Auto) 0.3 Eos # (Auto) 0.0 Baso # (Auto) 0.0 Immature Gran # (Auto) 0.24 H Absolute Nucleated RBC 0.00 Immature Gran % 2 H Neutrophils % (Manual) 88 H Monocytes % (Manual) 3 Nucleated RBC % 0 Band Neutrophils 5 Lymphocytes (Manual) 4 L Sodium 132 L Potassium 5.2 H Chloride 98 Carbon Dioxide 22.2 Anion Gap 12 BUN 25 H Creatinine 1.0 Estim Creat Clear Calc 104.5 eGFR > 60 BUN/Creatinine Ratio 25 H Glucose 430 H* D Calculated Osmolality 286 Calcium 9.1 Phosphorus 5.3 H Magnesium 2.0 Coccidioides IgG Ab Mycobacterial Culture ABG Interpretation ABG results: 08/26/25 16:40 ABG pH 7.47 H ABG pCO2 37 ABG pO2 62 L ABG HCO3 26 ABG O2 Saturation 93 ABG Base Excess 3 Assessment & Plan A&P Narrative ards may be cocci dm II a1c 9.4 will review as able, hiv neg btw other tests neg too and sputum may be contaminated. jeanine donatoro to 500/dfy x3 days ok to change to augmentin to finish rx will see again prn Time Spent With Patient Time: Total time spent is greater than 50% in coordination of care (as documented) at patient's floor/unit and/or counseling patient:
--- NOTE | 2025-08-30 07:58 | XR_ITS ---
EXAMINATION: AP chest single view TECHNIQUE: AP portable semiupright chest single view Date and time: August 30 2025, 0843 hours, comparison August 26, 2025 INDICATIONS: History of tuberculosis, shortness of breath this week. FINDINGS: Extensive bilateral pneumonia again noted, slightly less prominent compared to the prior study Normal heart size Reduced inspiratory effort Moderate osteopenia IMPRESSION: Extensive bilateral pneumonia
[2025-08-30] MEDS: SODIUM CHLORIDE 0.9% 1000 ML 1,000 ML 125 ML IV (09:03)
[2025-08-30] MEDS: SOD POLYSTYRENE SULFON SUSP 15 GM/60 ML BTL 30 GM PO (09:03)
[2025-08-30] MEDS: BACLOFEN 10 MG TABLET 20 MG PO ×2 (09:04→20:55)
[2025-08-30] MEDS: PREGABALIN 25 MG CAPSULE PO ×2 (09:05→20:55)
[2025-08-30] MEDS: HEPARIN SOD INJ 5000 UNIT/ML VIAL SC ×2 (09:11→20:56)
--- NOTE | 2025-08-30 11:38 | ESPR_ITS ---
<Statement entered by Amy Osborn MD - 09/07/25 09:15> I reviewed above note and agree with findings and plans. I have also personally examined the patient with medicine team and went over assessment and plan with medical team including jewelry internship and resident physician. <Statement entered by Lex Harvey MD - 08/30/25 15:19> Patient was examined and case was reviewed with team including attending physician. Note reviewed, I agree with most of its contents and agree with the patient's care as documented by Dr. Sanchez Patient seen today at the bedside found awake, alert, orientedx3. No overnight events reported. Vital signs and labs reviewed. Cx grew Acinobacter baumani, Currently on Cefepime, pending AFBs result. Currently weaning off O2 requirements currently saturating 92% on Room air. Repeat CXR shows some mild improvement. Can possibly transition to PO Abx for CAP and discharge once county results are in for TB rule out. Lex Harvey MD PGY-2 Documentation for date of: 08/30/25 Subjective Subjective Interval history: Mr. Antunez is a 45M with history of chronic sciatica, TBI, PTSD, cocci infection, and hypertension BIBA to the ED for shortness of breathe and dyspnea. He started feeling generalized malaise with occasional cough on last week (08/17/25). He denied chest pain, palpitation, recent travel, hemotypsis, sick contact, unilateral swelling, diarrhea. He denied prior history of TB, and is up to date on flu and covid vaccines. 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 CXR revealed diffuse bilateral multifocal infiltrates involving all lung zones. He was admitted for shortness of breath and dyspnea. 08/27/25: NAOE. Patient could not tolerate CTA Chest yesterday due to orthopnea and anxiety. Will reattempt CT scan today. His oxygen status had improved to 94% on 3L NC with abx treatment. LDH was found to be markly elevated. At this time, still pedning Bcx and sputum culture. AFB sputum cultured ordered for TB r/o given his high risk. 08/28/25: NAOE. Oxygen demand decreased, currently on 2L NC with 96% saturation. CTA chest revealed severe diffuse pneumonia vs ARDS pattern bilaterally. Echocardiogram showed normal LV size and normal systolic function, LVEF 60-65%, no evidence of PAH. CT cervial spine from 08/12/25 revealed normal apical lung zones, unsure what's causing the rapid progression of patient's pneumonia/ARDS. Investigate autoimmune causes today (a-1 antitrypsin, MARV, COTY ordered). Started solumetrol 60mg B ID today. 08/29/25: NAOE. Patient reports auditory and visual hallucinations overnight, denies SI/HI, likely due to hospital delirium. Denies prior psych histroy. He reports hearing voices from his mom calling and seeing his dogs jumping on his bed. Advised keep room well-lit during the day and good sleep hygiene. Patient was given melatonin 6mg PO HS. Patient is satting at 95% on 2L today, 88% on RA. Sputum culture grew Acinetobacter baumannii/haemol, sensitive to cefepime. His antibiotics regimen was switched from ceftriaxone and azithromycin to cefepime 1gm Q8H. Cocci IgM and IgG negative, discontinued fluconazole. Still pending TB r/o. At approximately 2:52PM, received nurse call regarding patient having another episode of hallucination. Patient seen and examined at [facility], denies SI/HI. Patient understands those hallucinations are not real, and is likely due to being in the isolation room for long period of time. Patient does not warrant any antipsychotic meds at this time. 08/30/25: NAOE. AFB smears returned negative x2, still awaiting final AFB result prior to ruling out TB. Darion's oxygen demand has decreased, no longer requiring O2 and can tolerate laying flat in bed at night to sleep. O2 sat 92% on RA. Patient reports great improvement with respiration, however, repeat CXR this morning shows extensive bilateral pneumonia. WBC 15.1 and BG 430 this morning, likely due to the effect of high dose steroid patient is on. Insulin was given to patient, will continue to monitor closely. If TB ruled out, will have another discussion with patient regarding the possiblity to be discharged home with oral antibiotic given patient has strong desire to home, but understands at this time he should not leave until TB results negative. ID suggests Augmentin PO for 7D to finish treatment. Exam Vital Signs Temp Pulse Resp BP Pulse Ox O2 Del Method O2 Flow Rate 97.3 F 100 20 154/97 H 100 Room Air 1 08/30/25 08:00 08/30/25 10:07 08/30/25 10:07 08/30/25 09:05 08/30/25 10:07 08/30/25 08:00 08/29/25 14:52 Narrative Exam General: Awake and in no acute distress. A/O x 3. Ambulatory. 92% on RA. HEENT: Normocephalic, atraumatic, mucous membranes moist. Heart: Regular rate and rhythm Lungs: Diminished lung sounds in all zones. No increase WOB. Abdomen: Soft, nondistended, nontender. No guarding or rebound tenderness. Neurologic: Alert and oriented x3, no gross neurological deficit, and patient able to move all 4 extremities. Extremities: No pitting edema in lower extremities. Skin: Dry, clean. No rash. Objective Labs 08/30/25 06:05 08/30/25 12:51 Labs: Laboratory Results - last 24 hr 08/26/25 08/28/25 08/28/25 16:10 01:00 10:55 WBC RBC Hgb Hct MCV MCH MCHC RDW Std Deviation Plt Count Neut % (Auto) Lymph % (Auto) [place] % (Auto) Eos % (Auto) Baso % (Auto) Neut # (Auto) Lymph # (Auto) [place] # (Auto) Eos # (Auto) Baso # (Auto) Immature Gran # (Auto) Absolute Nucleated RBC Immature Gran % Neutrophils % (Manual) Monocytes % (Manual) Nucleated RBC % Band Neutrophils Lymphocytes (Manual) Sodium Potassium Chloride Carbon Dioxide Anion Gap BUN Creatinine Estim Creat Clear Calc eGFR BUN/Creatinine Ratio Glucose Calculated Osmolality Calcium Phosphorus Magnesium Coccidioides IgG Ab Negative Mycobacterial Culture See Sep Rpt See Sep Rpt 08/29/25 08/30/25 05:03 06:05 WBC 15.1 H D RBC 3.97 L Hgb 12.1 L Hct 34.7 L MCV 87 MCH 30.5 MCHC 34.9 RDW Std Deviation 43.4 Plt Count 349 D Neut % (Auto) 92 H Lymph % (Auto) 4 L [place] % (Auto) 2 Eos % (Auto) 0 Baso % (Auto) 0 Neut # (Auto) 13.9 H Lymph # (Auto) 0.7 L [place] # (Auto) 0.3 Eos # (Auto) 0.0 Baso # (Auto) 0.0 Immature Gran # (Auto) 0.24 H Absolute Nucleated RBC 0.00 Immature Gran % 2 H Neutrophils % (Manual) 88 H Monocytes % (Manual) 3 Nucleated RBC % 0 Band Neutrophils 5 Lymphocytes (Manual) 4 L Sodium 132 L Potassium 5.2 H Chloride 98 Carbon Dioxide 22.2 Anion Gap 12 BUN 25 H Creatinine 1.0 Estim Creat Clear Calc 104.5 eGFR > 60 BUN/Creatinine Ratio 25 H Glucose 430 H* D Calculated Osmolality 286 Calcium 9.1 Phosphorus 5.3 H Magnesium 2.0 Coccidioides IgG Ab Mycobacterial Culture ABG Interpretation ABG results: 08/26/25 16:40 ABG pH 7.47 H ABG pCO2 37 ABG pO2 62 L ABG HCO3 26 ABG O2 Saturation 93 ABG Base Excess 3 Quality Measures Quality Measures VTE prophylaxis Assessment & Plan Assessment Current Active Medications: Generic Name Dose Route Start Last Admin Trade Name Freq PRN Reason Stop Dose Admin Acetaminophen 650 mg 08/26/25 16:34 Acetaminophen 325 Mg Tablet PO 09/25/25 16:33 Q6H PRN Fever >101.5 Hydrocodone Bitart/Acetaminophen 1 tab 08/27/25 09:38 08/30/25 04:53 Hydrocodone/Apap 5/325 Tablet PO 09/01/25 09:37 1 tab Q6HR PRN Administration PAIN SCALE 4-10(Mod-Sev Albuterol/Ipratropium 3 ml 08/27/25 15:00 08/30/25 10:07 Albuterol/Ipratropium (Duoneb) Rt Alecia 3 Ml Nebu INH 09/26/25 14:59 3 ml Q4HRRT KRYSTAL Administration Albuterol/Ipratropium 3 ml 08/27/25 14:00 Albuterol/Ipratropium (Duoneb) Rt [place] 3 Ml Nebu INH 09/26/25 13:59 Q2HR PRN SHORTNESS OF BREATH OR WHEEZE Baclofen 20 mg 08/27/25 09:45 08/30/25 09:04 Baclofen 10 Mg Tablet PO 09/26/25 09:44 20 mg BID KRYSTAL Administration Clonazepam 1 mg 08/28/25 10:00 08/30/25 09:05 Clonazepam 0.5 Mg Tablet PO 09/02/25 09:59 1 mg BID KRYSTAL Administration Cyclobenzaprine HCl 10 mg 08/28/25 13:07 08/28/25 19:12 Cyclobenzaprine 5 Mg Tablet PO 10 mg HS PRN Administration spasms Dextrose 25 ml 08/26/25 18:19 Dextrose 50%-Water Inj 50 Ml Syringe IV 09/25/25 18:18 Q15MIN PRN BG 50-70 responsive npo pt Dextrose 50 ml 08/26/25 18:19 Dextrose 50%-Water Inj 50 Ml Syringe IV 09/25/25 18:18 Q15MIN PRN BG <50 OR BG <70 & pt unresponsive Glucagon 1 mg 08/26/25 18:19 Glucagon Inj 1 Mg Vial IM Q15MIN PRN BG <70, and no IV access Heparin Sodium (Porcine) 5,000 unit 08/26/25 21:00 08/30/25 09:11 Heparin Sod Inj 5000 Unit/Ml Vial SC 09/09/25 20:59 5,000 unit BID KRYSTAL Administration Hydrochlorothiazide 12.5 mg 08/27/25 09:45 08/30/25 09:04 Hydrochlorothiazide 12.5 Mg Capsule PO 09/26/25 09:44 12.5 mg QDAY KRYSTAL Administration Cefepime HCl 1 gm/ Sodium 50 mls @ 100 mls/hr 08/29/25 10:07 08/30/25 05:01 Chloride IV 09/05/25 10:06 100 mls/hr Q8HR KRYSTAL Administration Sodium Chloride 1,000 mls @ 125 mls/hr 08/30/25 07:55 08/30/25 09:03 Ns IV 08/30/25 15:54 125 mls/hr .Q8H ONE Administration Insulin Human Lispro 0 unit 08/30/25 11:30 Insulin Lispro (Admelog) 1 Unit/0.01 Ml Unit SC 09/27/25 11:29 ACHS KRYSTAL Protocol Lisinopril 10 mg 08/27/25 09:00 08/30/25 09:05 Lisinopril 2.5 Mg Tablet PO 09/26/25 08:59 10 mg QDAY KRYSTAL Administration Lorazepam 1 mg 08/27/25 15:47 Lorazepam 2 Mg/Ml Vial IVP X1 PRN prior for scheduled CTA scan Melatonin 6 mg 08/27/25 21:00 08/29/25 21:09 Melatonin 3 Mg Tablet PO 09/26/25 20:59 6 mg HS KRYSTAL Administration Methylprednisolone Sodium Succinate 60 mg 08/28/25 21:00 08/30/25 09:04 Methylprednisolone Sod Succ 40 Mg/Ml Vial IVP 09/04/25 20:59 60 mg BID KRYSTAL Administration Paroxetine HCl 20 mg 08/30/25 09:00 08/30/25 09:04 Paroxetine Hcl 10 Mg Tablet PO 09/29/25 08:59 20 mg QDAY KRYSTAL Administration Pregabalin 25 mg 08/27/25 09:45 08/30/25 09:05 Pregabalin 25 Mg Capsule PO 09/26/25 09:44 25 mg BID KRYSTAL Administration Plan Mr. Antunez is a 45M with history chronic sciatica, TBI, PTSD, cocci infection, and hypertension admitted for shortness of breathe and dyspnea. #Acinetobacter baumannii/haemol pneumonia #Shortness of breathe #Dyspnea #Community acquired pneumonia #Diffused ground-glass opacity pneumonia #Acute respiratory hypoxia secondary to diffuse multifocal infiltrates #Hypersensitivty pneumonitis #Hx of cocci infection Satting at 84% on RA. Tachypnea. Initial CXR revealed diffuse bilateral multifocal infiltrates involving all lung zones. Received azithromycin and ceftriaxone in the ER. ABG: pH 7.47/PCO2 37/PHCO3 26/PO2 62 No elevated WBC. 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 --> flucanazole d/eze today (08/29/25) ---> suggest Augmentin PO for 7D to finsih treatment. - Continue solumedrol 60mg IV BID. - CTA Chest 08/26/25 : neg PE, severe diffuse pneumonia/ARDS pattern bilaterally - Echo card normal LV, systolic function. LVEF 60~65% - Cocci IgM neg. - Rapid HIV 1&2 Antibody neg. - Duoneb Q4HRRT - Bcx NGTD - COVID-19 PCR negative - Sputum Cx grew Acineobacter baumannii (08/29/25) - Cocci Serology IgM and IgG negative. - Pending HIV-1 RNA - Pending Aspergillus Ag, Legionella Ag - Pending 1-3-B-D Glucan - Pending COTY, MARV, Alpha-1 antitrypsin - Pending AFB #Hospital-acquired Delirium #Auditory hallucination #Visual hallucination Reports auditory and visual hallucination, denies HI/SI. - treat underlying infection - encourage good sleep hygiene - Melatonin 6mg QD HS - Well-lit room during day - Quiet at night - Encourage mobilization. #Left thyroid nodule 4mm left thyroid nodule noted on CTA 08/26/25 - outpatient follow up - 07/13/25: TSH 0.4, T4 1.59. #Hepatomegaly, cirrhosis vs primary palisading disease #Mild Splenomegaly As noted on CTA 08/26/25. AST/ALT this admission . - outpatient follow up - Will continue to monitor #Hypertension - chronic medical problem - Continue home HCTZ, lisinopril #PTSD #Anxiety - chronic medical problem - Continue home clonazepam - Continue home paroxetine #Chronic sciatica - Continue home baclofen, pregabalin - [place] Q6H PRN Health maintenance Dispo: pending TB r/o. DVT prophylaxis: HEPARIN GI prophylaxis: N/A Antibiotics: Cefepime Bowel Regimen: N/A Diet: Diet Carb consistent low. Lines: Peripheral IV Code status: Full code Case discussed with my senior resident Dr. Carias Case discussed with my attending Dr. Anurag Sanchez, DO PGY 1
[2025-08-30] MEDS: INSULIN LISPRO (AdmeLOG) 1 UNIT/0.01 ML UNIT 10 UNIT SC (12:11)
[2025-08-30 13:45] LABS: Glucose 457 mg/dL (74-106)
[2025-08-30 15:34] LABS: HIV-1 RNA, QN PCR NOT DETECTED copies/mL
[2025-08-30] MEDS: MELATONIN 3 MG TABLET 6 MG PO (20:55)
[2025-08-31] VITALS (9 sets, daily range): BP systolic 126–151; BP diastolic 83–95; PULSE 68–108; RESP 12–23; TEMP 36.1–36.2; O2SAT 94–99
[2025-08-31] MEDS: CEFEPIME INJ 1 GM in SODIUM CHLORIDE 0.9% (Popper) 50 ML IV (05:58)
[2025-08-31 06:01] LABS: Basophils # (Auto) 0.0 Thou/mm3 (0.0-0.2); Basophils % (Auto) 0 % (0-2.5); Eosinophils # (Auto) 0.0 Thou/mm3 (0.0-0.5); Eosinophils % (Auto) 0 % (0-10); Hematocrit 35.5 % (41.0-53.0); Hemoglobin 12.0 g/dL (13.5-16.0); Immature Granulocytes Auto 0.16 Thou/mm3 (0.00-0.00); Lymphocytes # (Auto) 0.4 Thou/mm3 (1.0-4.8); Lymphocytes % (Auto) 4 % (10-50); Mean Corpuscular HGB Conc 33.8 g/dl (31.0-37.0); Mean Corpuscular Hemoglobin 29.7 pg (25.0-35.0); Mean Corpuscular Volume 88 fL (80-100); Monocytes # (Auto) 0.2 Thou/mm3 (0.0-0.8); Monocytes % (Auto) 2 % (0-12); Neutrophils # (Auto) 11.3 Thou/mm3 (1.8-7.7); Neutrophils % (Auto) 93 % (37-80); Nucleated Red Blood Cell # 0.00 Thou/mm3 (0.00-0.00); Nucleated Red Blood Cell % 0 /100 WBC (0); Platelet Count 351 Thou/mm3 (140-440); RDW Standard Deviation 43.7 fL (35.1-43.9); Red Blood Count 4.04 Miln/mm3 (4.50-5.90); White Blood Count 12.2 Thou/mm3 (3.8-10.6)
[2025-08-31 06:21] LABS: HIV-1 RNA, QN PCR Log NOT DETECTED
[2025-08-31 06:29] LABS: Anion Gap 12 (7-16); BUN/Creatinine Ratio 29 Ratio (12-20); Blood Urea Nitrogen 26 mg/dL (9-23); Calcium 9.0 mg/dL (8.3-10.6); Carbon Dioxide 22.9 mMol/L (20.0-31.0); Chloride 101 mMol/L (98-107); Creatinine (Component) 0.9 mg/dL (0.6-1.3); Estimated Creatinine Clearance 116.2 mL/min (>60); Glucose 393 mg/dL (74-106); Magnesium 1.9 mg/dL (1.6-2.6); Osmolality,Calculated 292 (275-295); Phosphorous 4.0 mg/dL (2.4-5.1); Potassium 4.6 mMol/L (3.4-5.1); Sodium 136 mMol/L (136-145); eGFR > 60 See Note
[2025-08-31] MEDS: ALBUTEROL/IPRATROPIUM (Duoneb) RT SOL 3 ML NEBU INH ×2 (06:58→11:27)
[2025-08-31] MEDS: HEPARIN SOD INJ 5000 UNIT/ML VIAL SC (08:49)
[2025-08-31] MEDS: HYDROcodone/APAP 5/325 TABLET 1 TAB PO (08:50)
[2025-08-31] MEDS: INSULIN LISPRO (AdmeLOG) 1 UNIT/0.01 ML UNIT 5 UNIT SC (08:50)
[2025-08-31] MEDS: PREGABALIN 25 MG CAPSULE PO (08:51)
[2025-08-31] MEDS: BACLOFEN 10 MG TABLET 20 MG PO (08:52)
[2025-08-31] MEDS: INSULIN LISPRO (AdmeLOG) 1 UNIT/0.01 ML UNIT SC ×2 (08:52→12:08)
--- NOTE | 2025-08-31 12:35 | PC.NURSE ---
Pt. left AMA. Instructed the risks by RN and MD. Still signed out AMA. IV and telemetry removed prior to leaving.
--- NOTE | 2025-08-31 12:35 | EVENTNT_ITS ---
<Statement entered by Shirlene Jewell MD - 08/31/25 15:10> The patient decided to leave the hospital against medical advice. After an extensive discussion about the risks involved, including the potential for worsening lung infection and , the patient acknowledged understanding but chose to proceed with discharge. Despite being informed of the potential consequences and the severity of their current condition, the patient declined further inpatient care. Efforts to emphasize the seriousness of the situation were made, and the patient was advised to seek immediate medical attention if symptoms worsen. The patient expressed a need to leave urgently to care for their mother at home and planned to follow up with their primary care physician the next day to obtain medications and antibiotics for pneumonia. I?ve reviewed the note and agree with this assessment and plan, with the exceptions outlined above. I personally went over the labs, imaging, home medications, and prior records, and examined the patient. The case was also reviewed with the attending physician. Please note: this document was transcribed using voice recognition technology; minor inaccuracies may be present. Shirlene Jewell DO PGY II Documentation for date of: 08/31/25 Event Note Event Note: Leaving against medical advice (AMA) The patient has made the decision to leave the hospital against medical advice (AMA). After extensive discussion regarding the risks associated with this decision, the patient expressed understanding but chose to proceed with discharge. The patient declined further inpatient care after being informed of the potential consequences. Despite counseling on the severity of their current medical condition and the risks of premature discharge, the patient insisted on leaving the facility. The patient verbalized understanding of the risks, including worsening lung infection and , but chose to proceed with leaving against medical advice. All efforts to reinforce the gravity of the situation were provided. The patient was advised to seek immediate medical care if any symptoms worsen. A final attempt to re-engage the patient in care was made; however, they chose to leave the hospital AMA. Patient stated he needed to leave urgently to take care of his mother at home and will follow up with his PCP tomorrow to obtain medications and antibiotics he needs for his pneumonia. AMA form was signed by Dr. Jewell and witnessed by nursing staff. Case discussed with my senior resident Dr. Jewell Case discussed with my attending Dr. Marcelo Sanchez, PGY 1
[2025-08-31 19:49] LABS: (1-3)-B-D-glucan* <31 pg/mL; Index Value <0.50
[2025-09-01 07:44] LABS: Interpretation NEGATIVE
[2025-09-01 07:45] LABS: Aspergillus Ag, Ser* NOT DETECTED
[2025-09-01 07:46] LABS: Alpha-1-Antitrypsin* 351 mg/dL (83-199); Angiotensin Converting Enzyme* <5 U/L (9-67); Vitamin D,1,25 (OH)2,Total 136 pg/mL (18-72); Vitamin D2, 1,25 (OH)2 <8 pg/mL; Vitamin D3, 1,25 (OH)2 136 pg/mL
[2025-09-05 06:54] LABS: ANA Screen, IFA POSITIVE (NEGATIVE)
[2025-09-05 06:55] LABS: ANA Pattern NUCLEAR, NUCLEOLAR; ANA Titer 1:160 titer; ANA Titer 1:40 titer
== END 2025-08-31 12:35 | disposition left against medical advice (07) | DRG 139 ==
LOC: SERX 16:14 → SERHOLD 17:17 → S2NX 08-28 05:46
PROVIDERS: Internal Medicine Infectious Disease; Student in an Organized Health Care Education/Training Program; Emergency Provider Emergency Medicine; Visit Provider Internal Medicine
DX: J18.9 Pneumonia, unspecified organism (principal); J80 Acute respiratory distress syndrome; I10 Essential (primary) hypertension; F43.10 Post-traumatic stress disorder, unspecified; M54.30 Sciatica, unspecified side; Z87.820 Personal history of traumatic brain injury; E04.1 Nontoxic single thyroid nodule; E11.9 Type 2 diabetes mellitus without complications; G89.29 Other chronic pain; B96.83 Acinetobacter baumannii as the cause of diseases classified elsewhere; Z79.899 Other long term (current) drug therapy; Z88.2 Allergy status to sulfonamides; Z53.29 Procedure and treatment not carried out because of patient's decision for other reasons
CPT/HCPCS: 36415; 36600; 71045; 71046; 71275; 80048; 80053; 80307; 81001; 82103; 82164; 82306; 82652; 82803; 82947; 83605; 83615; 83690; 83735; 83880; 84100; 84145; 84484; 85025; 85610; 85730; 86038; 86039; 86331; 86480; 86635; 86703; 87015; 87040; 87077; 87106; 87116; 87186; 87205; 87206; 87305; 87449; 87502; 87536; 87634; 87635; 93005; 93306; 94640; 94664; 96374; 99284; A4216; A4649; A9270; J0456; J0692; J0696; J1644; J1815; J2919; J7030; J7050; Q9967